=== PATIENT | male | born 1940 | race Caucasian/White ===

== ENCOUNTER 2018-04-17 11:39 | Outpatient (REF) | payer MEDICARE, SELFPAY ==
[2018-04-17 21:20] LABS: Anion Gap 10.1 mmol/L (3-11); BUN 13 mg/dL (7-18); CO2 28.9 mmol/L (21.0-32.0); CREATININE 0.93 mg/dL (0.70-1.30); Calcium 8.5 mg/dL (8.5-10.1); Chloride 101 mmol/L (98-107); Glucose 210 mg/dL (70-100); Potassium 3.9 mmol/L (3.5-5.1); Sodium 140 mmol/L (136-145)
== END 2018-04-17 11:59 ==
LOC: NCHCN 11:39
PROVIDERS: Visit Provider Nurse Practitioner Family
DX: E11.49 Type 2 diabetes mellitus with other diabetic neurological complication (principal); I10 Essential (primary) hypertension
CPT/HCPCS: 80048

== ENCOUNTER 2019-01-15 09:46 | Outpatient (REF) | payer MEDICARE, SELFPAY ==
[2019-01-15 22:45] LABS: COMMENT (LAB VIEW ONLY) 193.97 mg/dL; Microalb ug/mg Crea 31.4 ug/mg Cr
== END 2019-01-15 10:06 ==
LOC: NCHCN 09:46
PROVIDERS: Visit Provider Nurse Practitioner Family
DX: E11.49 Type 2 diabetes mellitus with other diabetic neurological complication (principal); E11.40 Type 2 diabetes mellitus with diabetic neuropathy, unspecified; I10 Essential (primary) hypertension; R06.00 Dyspnea, unspecified
CPT/HCPCS: 82043; 82570

== ENCOUNTER 2019-03-19 15:35 | Outpatient (REF) | payer MEDICARE, SELFPAY ==
[2019-03-19 22:34] LABS: Abs Immature Grans 0.03 k/cumm (0.0-0.09); Absolute Basophil Count 0.01 k/cumm (0.0-0.2); Absolute Eosinophil Count 0.07 k/cumm (0.0-0.7); Absolute Lymphocyte Count 1.38 k/cumm (1.2-3.4); Absolute Monocyte Count 0.89 k/cumm (0.11-0.7); Absolute Neutrophil Count 2.44 k/cumm (1.2-6.7); Basophils % 0.2; Eosinophils % 1.5; HCT 39.2 % (40.0-50.0); HGB 12.7 g/dL (13.5-17.5); Immature Grans % 0.6 %; Lymphocytes % 28.6; Mean Corp. HGB Concentration 32.4 g/dL (32.0-36.0); Mean Corpuscular Hemoglobin 27.3 pg (27.0-33.0); Mean Corpuscular Volume 84.3 fL (80-95); Mean Platelet Volume 9.9 fL (8.0-11.0); Monocytes % 18.5; Neutrophils % 50.6; Platelet Count 204 x1000/uL (130-400); RBC 4.65 m/cumm (4.50-6.00); RBC Distribution Width 15.1 % (11.8-14.1); White Blood Cell Count 4.82 k/cumm (4.4-10.8)
[2019-03-19 22:40] LABS: Iron 54 ug/dL (65-175); Total Iron Binding Capacity 291 ug/dL (250-450); Transferrin Sat 19 % (20-55)
[2019-03-19 23:08] LABS: Ferritin 26 ng/mL (26-388); Folate 17.3 ng/mL (8.6-20.0); TSH (W/Ref FT4) 2.39 uIU/mL (0.36-3.74); Vitamin B12 110 pg/mL (193-986)
== END 2019-03-19 15:55 ==
LOC: NCHCN 15:35
PROVIDERS: Visit Provider Family Medicine
DX: E11.40 Type 2 diabetes mellitus with diabetic neuropathy, unspecified (principal); D50.9 Iron deficiency anemia, unspecified; I10 Essential (primary) hypertension; R13.10 Dysphagia, unspecified
CPT/HCPCS: 82607; 82728; 82746; 83540; 83550; 84443; 85025

== ENCOUNTER 2019-04-08 08:47 | Outpatient (REF) | payer MEDICARE, SELFPAY ==
[2019-04-08 22:05] LABS: BUN 13 mg/dL (7-18); CREATININE 0.86 mg/dL (0.70-1.30); Calcium 8.4 mg/dL (8.5-10.1); Chloride 103 mmol/L (98-107); Glucose 251 mg/dL (74-106); Potassium 4.3 mmol/L (3.5-5.1); Sodium 142 mmol/L (136-145)
[2019-04-08 22:10] LABS: Hemoglobin A1C 7.6 % (3.8-5.6)
== END 2019-04-08 09:07 ==
LOC: NCHCN 08:47
PROVIDERS: Visit Provider Nurse Practitioner Family
DX: E11.49 Type 2 diabetes mellitus with other diabetic neurological complication (principal); I10 Essential (primary) hypertension; D50.9 Iron deficiency anemia, unspecified
CPT/HCPCS: 80048; 83036

== ENCOUNTER 2019-07-21 08:34 | Outpatient (REF) | payer MEDICARE, SELFPAY ==
[2019-07-21 21:43] LABS: Iron 88 ug/dL (65-175)
[2019-07-21 21:57] LABS: HGB 13.3 g/dL (13.5-17.5); Mean Corp. HGB Concentration 32.4 g/dL (32.0-36.0); Mean Corpuscular Hemoglobin 27.1 pg (27.0-33.0); Mean Corpuscular Volume 83.5 fL (80-95); Mean Platelet Volume 10.2 fL (8.0-11.0); Platelet Count 213 x1000/uL (130-400); RBC 4.91 m/cumm (4.50-6.00); RBC Distribution Width 15.3 % (11.8-14.1); White Blood Cell Count 5.42 k/cumm (4.4-10.8)
[2019-07-21 22:09] LABS: Ferritin 48 ng/mL (26-388); Vitamin B12 142 pg/mL (193-986)
== END 2019-07-21 08:54 ==
LOC: NCHCN 08:34
PROVIDERS: Visit Provider Nurse Practitioner Family
DX: D64.9 Anemia, unspecified (principal)
CPT/HCPCS: 85027; 82607; 82728; 83540

== ENCOUNTER 2020-05-03 12:59 | Outpatient (REF) | payer MEDICARE, SELFPAY ==
[2020-05-03 13:19] LABS: HCT 40.9 % (40.0-50.0); HGB 12.9 g/dL (13.5-17.5); MCH 26.8 pg (27.0-33.0); MCHC 31.5 % (32.0-36.0); MCV 84.9 fL (80-95); MPV 10.1 fL (8.0-11.0); Platelet Count 175 10^3/uL (130-400); RBC 4.82 10^6/uL (4.36-5.78); RDW 14.5 % (11.8-14.1); RDW-SD 44.7 fL; WBC 4.54 10^3/uL (4.4-10.8)
[2020-05-03 13:46] LABS: Iron 64 ug/dL (65-175); Total Iron Binding Capacity 275 ug/dL (250-450); Transferrin Sat 23 % (20-55)
[2020-05-03 13:58] LABS: Anion Gap 9.9 mmol/L (3-11); BUN 15 mg/dL (7-18); CO2 28.1 mmol/L (21.0-32.0); Calcium 9.1 mg/dL (8.5-10.1); Chloride 104 mmol/L (98-107); Ferritin 44 ng/mL (26-388); Glucose 208 mg/dL (74-106); Potassium 4.7 mmol/L (3.5-5.1); Sodium 142 mmol/L (136-145); Vitamin B12 757 pg/mL (193-986)
== END 2020-05-03 13:00 | disposition home or self-care (01) ==
LOC: NCHCN 12:59
PROVIDERS: Visit Provider Nurse Practitioner Family
DX: E11.49 Type 2 diabetes mellitus with other diabetic neurological complication (principal); I10 Essential (primary) hypertension; Z86.2 Personal history of diseases of the blood and blood-forming organs and certain disorders involving the immune mechanism
CPT/HCPCS: 80048; 85027; 82043; 82570; 82607; 82728; 83540; 83550

== ENCOUNTER 2020-11-07 11:09 | Outpatient (REF) | payer MEDICARE, SELFPAY ==
[2020-11-07 15:44] LABS: HGB 11.8 g/dL (13.5-17.5); MCH 25.8 pg (27.0-33.0); MCHC 31.1 % (32.0-36.0); MPV 9.8 fL (8.0-11.0); Platelet Count 188 10^3/uL (130-400); RBC 4.58 10^6/uL (4.36-5.78); RDW 14.9 % (11.8-14.1); RDW-SD 45.1 fL; WBC 4.25 10^3/uL (4.4-10.8)
[2020-11-07 16:06] LABS: Iron 75 ug/dL (65-175); Total Iron Binding Capacity 253 ug/dL (250-450); Transferrin Sat 30 % (20-55)
[2020-11-07 16:18] LABS: Anion Gap 12.4 mmol/L (3-11); BUN 13 mg/dL (7-18); CO2 25.6 mmol/L (21.0-32.0); CREATININE 0.8 mg/dL (0.70-1.30); Calcium 8.7 mg/dL (8.5-10.1); Chloride 105 mmol/L (98-107); Ferritin 68 ng/mL (26-388); Glucose 150 mg/dL (74-106); Potassium 4.5 mmol/L (3.5-5.1); Sodium 143 mmol/L (136-145)
[2020-11-07 16:47] LABS: PROTEIN 22.1 mg/dL
[2020-11-07 16:50] LABS: COMMENT (LAB VIEW ONLY) 204.68 mg/dL
[2020-11-07 18:31] LABS: Folate 19.1 ng/mL (8.6-20.0); Vitamin B12 804 pg/mL (193-986)
== END 2020-11-07 11:10 | disposition home or self-care (01) ==
LOC: NCHCN 11:09
PROVIDERS: Visit Provider Nurse Practitioner Family
DX: Z86.2 Personal history of diseases of the blood and blood-forming organs and certain disorders involving the immune mechanism (principal); I10 Essential (primary) hypertension; E11.49 Type 2 diabetes mellitus with other diabetic neurological complication; Z12.5 Encounter for screening for malignant neoplasm of prostate
CPT/HCPCS: 80048; 84153; 85027; 82565; 82607; 82728; 82746; 83540; 83550; 84156

== ENCOUNTER 2020-12-22 16:14 | Outpatient (REF) | payer MEDICARE, SELFPAY ==
[2020-12-22 15:12] LABS: ALT 24 U/L (16-63); AST 23 U/L (15-37); Albumin 3.7 g/dL (3.4-5.0); Alkaline Phosphatase 64 U/L (46-116); BUN 15 mg/dL (7-18); Bilirubin, Total 0.4 mg/dL (0.2-1.0); CREATININE 0.9 mg/dL (0.70-1.30); Chloride 104 mmol/L (98-107); Glucose 137 mg/dL (74-106); Potassium 4.3 mmol/L (3.5-5.1); Sodium 142 mmol/L (136-145); Total Protein 6.4 g/dL (6.4-8.2)
[2020-12-22 15:13] LABS: Abs Immature Grans 0.05 10^3/uL (0.0-0.06); Absolute Basophil Count 0.01 10^3/uL (0.0-0.2); Absolute Eosinophil Count 0.04 10^3/uL (0.0-0.7); Absolute Lymphocyte Count 1.57 10^3/uL (1.2-3.4); Absolute Monocyte Count 0.91 10^3/uL (0.1-0.8); Absolute Neutrophil Count 2.47 10^3/uL (1.2-6.7); Basophils % 0.2; Eosinophils % 0.8; HCT 37.9 % (40.0-50.0); HGB 11.9 g/dL (13.5-17.5); Lymphocytes % 31.1; MCH 26.3 pg (27.0-33.0); MCHC 31.4 % (32.0-36.0); MCV 83.8 fL (80-95); MPV 9.6 fL (8.0-11.0); Neutrophils % 48.9; Nucleated RBC 0 %; Platelet Count 185 10^3/uL (130-400); RBC 4.52 10^6/uL (4.36-5.78); RDW 15.4 % (11.8-14.1); Reticulocyte 1.8 % (0.5-2.4); WBC 5.05 10^3/uL (4.4-10.8)
== END 2020-12-22 16:15 | disposition home or self-care (01) ==
LOC: NCHCN 16:14
PROVIDERS: Visit Provider Nurse Practitioner Family
DX: D64.9 Anemia, unspecified (principal); D72.829 Elevated white blood cell count, unspecified
CPT/HCPCS: 80053; 85025; 85045

== ENCOUNTER 2021-03-29 12:44 | Outpatient (REF) | payer MEDICARE, SELFPAY ==
[2021-03-29 15:37] LABS: Absolute Basophil Count 0.01 10^3/uL (0.0-0.2); Absolute Eosinophil Count 0.04 10^3/uL (0.0-0.7); Absolute Lymphocyte Count 1.92 10^3/uL (1.2-3.4); Absolute Monocyte Count 1.06 10^3/uL (0.1-0.8); Basophils % 0.2; Eosinophils % 0.6; HCT 41.1 % (40.0-50.0); HGB 12.9 g/dL (13.5-17.5); Immature Grans % 1.6; Lymphocytes % 29.9; MCH 26.6 pg (27.0-33.0); MCHC 31.4 % (32.0-36.0); MCV 84.7 fL (80-95); MPV 9.8 fL (8.0-11.0); Monocytes % 16.5; Neutrophils % 51.2; Nucleated RBC 0 %; Platelet Count 180 10^3/uL (130-400); RBC 4.85 10^6/uL (4.36-5.78); RDW-SD 45.6 fL; WBC 6.43 10^3/uL (4.4-10.8)
== END 2021-03-29 12:45 | disposition home or self-care (01) ==
LOC: NCHCN 12:44
PROVIDERS: Visit Provider Nurse Practitioner Family
DX: D64.9 Anemia, unspecified (principal)
CPT/HCPCS: 85025

== ENCOUNTER 2021-08-15 09:10 | Outpatient (REF) | payer MEDICARE, SELFPAY ==
[2021-08-15 14:21] LABS: HCT 39.7 % (40.0-50.0); HGB 12.9 g/dL (13.5-17.5); MCH 27.1 pg (27.0-33.0); MCHC 32.5 % (32.0-36.0); MCV 83 fL (80-95); MPV 10.3 fL (8.0-11.0); Platelet Count 160 10^3/uL (130-400); RBC 4.76 10^6/uL (4.36-5.78); RDW 14.6 % (11.8-14.1); RDW-SD 44.7 fL; WBC 5.22 10^3/uL (4.4-10.8)
[2021-08-15 14:37] LABS: Anion Gap 11.7 mmol/L (3-11); BUN 13 mg/dL (7-18); CO2 25.3 mmol/L (21.0-32.0); CREATININE 0.8 mg/dL (0.70-1.30); Calcium 8.5 mg/dL (8.5-10.1); Chloride 103 mmol/L (98-107); Glucose 241 mg/dL (74-106); Potassium 4.6 mmol/L (3.5-5.1); Sodium 140 mmol/L (136-145)
[2021-08-15 14:59] LABS: Hemoglobin A1C 7.9 % (<5.7)
[2021-08-15 15:54] LABS: COMMENT (LAB VIEW ONLY) 130.44 mg/dL; Microalb ug/mg Crea 26.8 ug/mg Cr
== END 2021-08-15 09:11 | disposition home or self-care (01) ==
LOC: NCHCN 09:10
PROVIDERS: Visit Provider Nurse Practitioner Family
DX: E11.49 Type 2 diabetes mellitus with other diabetic neurological complication (principal); I10 Essential (primary) hypertension; D64.9 Anemia, unspecified
CPT/HCPCS: 80048; 85027; 82043; 82570; 83036

== ENCOUNTER 2022-08-21 11:11 | Outpatient (REF) | payer MEDICARE, SELFPAY ==
[2022-08-21 14:59] LABS: HCT 39.7 % (40.0-50.0); HGB 12.4 g/dL (13.5-17.5); MCH 26.4 pg (27.0-33.0); MCHC 31.2 % (32.0-36.0); MCV 85 fL (80-95); MPV 9.6 fL (8.0-11.0); Platelet Count 185 10^3/uL (130-400); RDW 15.4 % (11.8-14.1); RDW-SD 47.2 fL; WBC 6.08 10^3/uL (4.4-10.8)
[2022-08-21 15:20] LABS: BUN 16 mg/dL (7-18); CREATININE 1.1 mg/dL (0.70-1.30); Calcium 8.8 mg/dL (8.5-10.1); Chloride 105 mmol/L (98-107); Estimated GFR 67.44 (mL/min/1.73m2); Glucose 194 mg/dL (74-106); Potassium 4.7 mmol/L (3.5-5.1); Sodium 139 mmol/L (136-145); TSH 3.56 uIU/mL (0.36-3.74)
[2022-08-21 15:21] LABS: Hemoglobin A1C 7.1 % (<5.7)
== END 2022-08-21 11:12 | disposition home or self-care (01) ==
LOC: NCHCN 11:11
PROVIDERS: Visit Provider Nurse Practitioner Family
DX: R63.4 Abnormal weight loss (principal); D64.9 Anemia, unspecified; I10 Essential (primary) hypertension; E11.49 Type 2 diabetes mellitus with other diabetic neurological complication
CPT/HCPCS: 80048; 85027; 83036; 84443

== ENCOUNTER 2022-08-28 13:28 | Outpatient (REF) | payer MEDICARE, SELFPAY ==
[2022-08-28 15:58] LABS: COMMENT (LAB VIEW ONLY) 100.74 mg/dL; Microalb ug/mg Crea 129.9 ug/mg Cr
== END 2022-08-28 13:29 | disposition home or self-care (01) ==
LOC: NCHCN 13:28
PROVIDERS: PCP Nurse Practitioner Family; Visit Provider Nurse Practitioner Family
DX: D64.9 Anemia, unspecified (principal); I10 Essential (primary) hypertension; E11.49 Type 2 diabetes mellitus with other diabetic neurological complication
CPT/HCPCS: 82043; 82570

== ENCOUNTER 2023-07-16 10:01 | Outpatient (REF) | payer MEDICARE, SELFPAY ==
[2023-07-16 14:48] LABS: HCT 41.4 % (40.0-50.0); HGB 12.8 g/dL (13.5-17.5); MCH 25.5 pg (27.0-33.0); MCHC 30.9 % (32.0-36.0); MCV 83 fL (80-95); MPV 9.8 fL (8.0-11.0); Platelet Count 246 10^3/uL (130-400); RBC 5.02 10^6/uL (4.36-5.78); RDW-SD 48.2 fL; WBC 6.61 10^3/uL (4.4-10.8)
[2023-07-16 15:04] LABS: Anion Gap 6.2 mmol/L (3-11); BUN 17 mg/dL (7-18); CO2 30.8 mmol/L (21.0-32.0); CREATININE 0.9 mg/dL (0.70-1.30); Calcium 9.5 mg/dL (8.5-10.1); Chloride 106 mmol/L (98-107); Estimated GFR 85.27 (mL/min/1.73m2); Glucose 167 mg/dL (74-106); Sodium 143 mmol/L (136-145)
[2023-07-16 15:23] LABS: Hemoglobin A1C 7.2 % (<5.7)
[2023-07-16 16:28] LABS: COMMENT (LAB VIEW ONLY) 77.82 mg/dL; Microalb ug/mg Crea 19.4 ug/mg Cr
[2023-07-17 14:07] LABS: PSA, Diagnostic 2.5 ng/mL (<=6.5)
== END 2023-07-16 10:02 | disposition home or self-care (01) ==
LOC: NCHCN 10:01
PROVIDERS: PCP Nurse Practitioner Family; Visit Provider Nurse Practitioner Family
DX: E11.9 Type 2 diabetes mellitus without complications (principal); N40.0 Benign prostatic hyperplasia without lower urinary tract symptoms; D64.9 Anemia, unspecified
CPT/HCPCS: 80048; 85027; 82043; 82570; 83036; 84153

== ENCOUNTER 2024-01-09 10:18 | Outpatient (REF) | payer MEDICARE, SELFPAY ==
[2024-01-09 15:40] LABS: Absolute Basophil Count 0.01 10^3/uL (0.0-0.2); Basophils % 0.2 %; HCT 39.4 % (40.0-50.0); HGB 11.9 g/dL (13.5-17.5); MCH 23.3 pg (27.0-33.0); MCHC 30.2 % (32.0-36.0); MCV 77 fL (80-95); MPV 9.4 fL (8.0-11.0); Platelet Count 259 10^3/uL (130-400); RBC 5.11 10^6/uL (4.36-5.78); RDW 19.9 % (11.8-14.1); RDW-SD 55.5 fL; WBC 6.32 10^3/uL (4.4-10.8)
[2024-01-09 15:50] LABS: ALT 12 U/L (16-63); AST 21 U/L (15-37); Albumin 3.1 g/dL (3.4-5.0); Alkaline Phosphatase 70 U/L (46-116); BUN 11 mg/dL (7-18); Bilirubin, Total 0.53 mg/dL (0.2-1.0); CREATININE 0.8 mg/dL (0.70-1.30); Calcium 9.2 mg/dL (8.5-10.1); Chloride 105 mmol/L (98-107); Estimated GFR 88.36 (mL/min/1.73m2); Glucose 152 mg/dL (74-106); Potassium 4.2 mmol/L (3.5-5.1); Sodium 143 mmol/L (136-145); Total Protein 7.4 g/dL (6.4-8.2)
[2024-01-09 16:26] LABS: Absolute Lymphocyte Count 1.64 10^3/uL (1.2-3.4); Absolute Monocyte Count 1.33 10^3/uL (0.1-0.8); Absolute Neutrophil Count 3.16 10^3/uL (1.2-6.7); Diff Comment Manual Differential
[2024-01-09 16:27] LABS: Absolute Eosinophil Count 0.06 10^3/uL (0.0-0.7); Anisocytosis 1+; Metamyelocytes % 2
[2024-01-09 16:28] LABS: Hypochromasia 1+; Poikilocytes 1+; Polychromasia Present
[2024-01-09 22:30] LABS: PSA, Screening 2.6 ng/mL (<=6.5)
== END 2024-01-09 10:19 | disposition home or self-care (01) ==
LOC: NCHCN 10:18
PROVIDERS: PCP Nurse Practitioner Family; Visit Provider Nurse Practitioner Family
DX: R63.4 Abnormal weight loss (principal)
CPT/HCPCS: 80053; 84153; 84443; 85025

== ENCOUNTER 2024-01-17 13:50 | Outpatient (REF) | payer MEDICARE, SELFPAY ==
--- OUTSIDE RECORDS SUMMARY | 2024-01-17 13:52 | XMS_ITS ---
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 The components appear well seated. No other significant bony abnormality is seen. Dictated by: SYBIL GONZALES RADIOLOGIST Transcribed by: EMERSON 06/09/21/10:40 D Wednesday, June 09, 2021 9:56:00 AM [id number] Electronically Reviewed and Signed By: JEAN-PAUL GONZALES RADIOLOGIST 06/09/21 12:23 Copy for: [facility] Social History Type Status Start Date End Date Code Code Syst em Smoking History Former smoker [id number] SNOMED CT Sex Male Hospital Discharge Instructions Should you have any questions prior to discharge, please contact a member of your healthcare team. If you have left the hospital and have any questions, please contact your primary care physician. Reason For Referral No Data Found Allergies and Adverse Reactions Allergy Substance Reaction Severity Start Date Concern Status Co de Code System AMOXICILLIN Moderate Active 723 RxNorm Plan of Treatment Pre-Op Covid-19 Testing 05/30/2020 Pre-Op Testing 05/09/2020 CT CHEST W/O CONTRAST 02/03/2024 PFT COMPLETE W [facility] 01/21/2024 Encounters Encounter Diagnosis Start Date Code Code Sys tem Shoulder joint prosthesis present 06/09/2021 [id number] SNOMED-CT Personal Care Team Section Performer Name Performer Role Active Date Inactive Da te
--- OUTSIDE RECORDS SUMMARY | 2024-01-17 13:52 | XMS_ITS ---
Author Organization Unknown Address [address] [place] [address] [phone] Phone Care Team Providers Care Detective Private Eye Name Role Phone KEYON Gutierrez Attending Unavailable MICHELLE Acosta Primary Unavailable Results XR SHOULDER 2V OR MORE LT* - Completed: 06/04/2022 11:05 LOINC: [facility] [place], [place] [address] PACS SPORTS CARTOONIST REPORT Patient Name: MEGGAN JOSHI MRN: Sex: : Age: [id number] M 1940 82 Account: Accession: Admit: StayType: [id number] 06/04/2022 CLINIC Ordered: Order ID: Submitted: Ordering Provider: 06/04/2022 10:26 [id number] EMO ASHLEY TA Completed: Technologist: Resulted: 06/04/2022 11:05 EMO 06/04/2022 11:07 Study Description: XR SHOULDER 2V OR MORE LT Study Reason: Pain Technique: 2D digital imaging was performed. 2 images were obtained. COMPARISON: Comparison is made with prior examinations. 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 No lucencies are seen and are about the orthopedic hardware. The bones are intact. Mild degenerative changes are seen at the acromioclavicular joint. The soft tissues are unremarkable. IMPRESSION: Stable left TSA. Report Digitally Signed by Jorge Mcnair on 06/04/2022 11:07 AM EDT Social History Type Status Start Date End Date Code Code Syst em Smoking History Former smoker [id number] SNOMED CT Sex Male Hospital Discharge Instructions [...] Diagnosis Start Date Code Code Sys tem Postprocedural state finding 06/04/2022 [id number] SNOMED-CT Personal Care Team Section Performer Name Performer Role Active Date Inactive Da te
--- OUTSIDE RECORDS SUMMARY | 2024-01-17 13:52 | XMS_ITS ---
Author Organization Unknown Address [address] [place] [address] [phone] Phone Care Team Providers Care Core Shaper Top Name Role Phone MIKE Gomez Attending Unavailable MICHELLE Acosta Primary Unavailable Results XR CHEST 2V PA AND LATERAL - Completed: 10/02/2022 14:24 LOINC: [facility] [place], [place] [address] PACS COTTAGE ATTENDANT REPORT Patient Name: MEGGAN JOSHI MRN: Sex: : Age: [id number] M 1940 82 Account: Accession: Admit: StayType: [id number] 10/02/2022 O/P Ordered: Order ID: Submitted: Ordering Provider: 10/02/2022 14:14 [id number] NLS EFRA MCKEON Completed: Technologist: Resulted: 10/02/2022 14:24 KMD 10/03/2022 07:31 Study Description: XR CHEST 2V PA AND LATERAL Study Reason: Cough TECHNIQUE: 2D digital imaging was performed. PA and Lateral views COMPARISON: Chest x-ray 02/10/2019. FINDINGS: Heart size is normal. The mediastinum is not widened. Lungs are clear. There are no infiltrates nor pleural effusions. Left shoulder reverse prosthesis now evident. IMPRESSION: No acute pulmonary findings. Report Digitally Signed by Rylan Mercer on 10/03/2022 07:31 AM EDT Social History Type Status Start Date End Date Code Code Syst em Smoking History Former smoker [id number] SNOMED CT Sex Male Hospital Discharge Instructions [...] CHEST W/O CONTRAST 02/03/2024 PFT COMPLETE W RIA 01/21/2024 Encounters Encounter Diagnosis Start Date Code Code Sys tem Other specified cough 10/02/2022 SNOMED -CT Personal Care Team Section Performer Name Performer Role Active Date Inactive Da te
--- OUTSIDE RECORDS SUMMARY | 2024-01-17 13:53 | XMS_ITS ---
Author Organization Unknown Address [address] [place] [address] [phone] Phone Care Team Providers Care Casting Cleaner Name Role Phone MICHELLE WEI Attending Unavailable Social History Type Status Start Date End Date Code Code Syst em Smoking History Former smoker [id number] SNOMED CT Sex Male Hospital Discharge Instructions [...] CHEST W/O CONTRAST 02/03[facility]2024 [facility] Encounters Encounter Diagnosis Start Date Code Code Sys tem Other abnormalities of gait and mobility 10/21/2020 SNOMED-CT Personal Care Team Section Performer Name Performer Role Active Date Inactive Da te
--- OUTSIDE RECORDS SUMMARY | 2024-01-17 13:53 | XMS_ITS ---
Author Organization Unknown Address [address] [place] [address] [phone] Phone Care Team Providers Care Watch And Clock Maker And Repairer Name Role Phone MILTON CARCAMO NP Attending [facility]available [facility] Primary Unavailable Social History Type Status Start Date End Date Code Code Syst em Smoking History Former smoker 0588464 SNOMED CT Sex Male Hospital Discharge Instructions [...] Code Sys tem Shoulder joint prosthesis present 09/30/2020 [id number] 01 SNOMED-CT Personal Care Team Section Performer Name Performer Role Active Date Inactive Da roxi
--- OUTSIDE RECORDS SUMMARY | 2024-01-17 13:54 | XMS_ITS | Encounter Summary ---
Author Organization [facility] Address [address] [place] [address] Care Team Providers Care Departmental Shipping Clerk Name Role Phone Darwin Cary Dave MICROFILM PROCESSOR Primary Care Provider [phone] Reason for Visit * Reason Comments Medications Refill Encounter Details Date Type Department Care Team (Late st Contact Info) Description 12/31/2021 Refill [facility] Ophthalmology - [address] [phone] Caleb Cabello MD [address] [facility], [address] [place] [phone] Medications Refill Social History Tobacco Use Types Packs/Day Years Used Date Smoking Tobacco: Former Smokeless Tobacco: Current Chew Interpersonal Safety Answer Date Record ed Physically Hurt Never 10/11/2019 Verbally Threaten Not on file 10/11/2019 Sex and Gender Information Value Date Recorded Sex Assigned at Not on file Gender Identity Male 05/20/2019 12:48 EDT Sexual Orientation Not on file documented as of this encounter Ordered Prescriptions Prescription Sig Dispensed Refills Start Date End Da te travoprost (TRAVATAN Z) 0.004 % ophthalmic solution INSTILL 1 DROP INTO BOTH EYES IN THE EVENING 2.5 mL 01/02/2022 01/05/2022 documented in this encounter Plan of Treatment Not on file documented as of this encounter Visit Diagnoses Not on filedocumented in this encounter Discontinued Medications Medication Sig Discontinue Reason Start Date End Da te travoprost (TRAVATAN Z) 0.004 % ophthalmic solution Place 1 Drop into both eyes every evening. Needs to keep apt for further refills. 10/30/2021 01/02/2022 documented as of this encounter Care Teams Departmental Shipping Clerk Relationship Specialty Start Date End Date Cary Granados, MICROFILM PROCESSOR [address] [place] [address] PCP - General 05/21/17 documented as of this encounter
--- OUTSIDE RECORDS SUMMARY | 2024-01-17 13:54 | XMS_ITS | Encounter Summary ---
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 [H25.813] Procedures MS XCAPSL CTRC RMVL INSJ IO LENS PROSTH W/O ECP MS RELIEVE INNER EYE PRESSURE EXTRACAP CATARACT REMOVAL W/LENS INSERTION STAGE 1 GONIOTOMY Referral ID Status Reason Start Date Expiration Date Visits Re quested Visits Authorized [id number] 1 1 Encounter Details Date Type Department Care Team (Late st Contact Info) Description 08/11/2019 11:15 EDT - 08/11/2019 12:20 EDT Surgery [facility] - [facility] Operating Room [address] [place] [address] Caleb Cabello MD [address] [facility], [facility] [address] [place] [address] Cataract Extraction w/IOL Implant, Goniotomy, RIGHT EYE [02167 (CPT??)] Surgery Details Date/Time Status Location OR Service Patient Class Case Class Case Type Trauma Case? 08/11/19 1115 Posted [facility] OR FOR 04 [facility] Outpatient Surgery H - Elective Panel 1 Procedure LRB Anes Op Region Wound Class Comments Cataract Extraction w/IOL Implant, Goniotomy, RIGHT EYE Right Monitored Anesthesia Care Eye Class I/ Clean GONIOTOMY Right Monitored Anesthesia Care Eye Class I/ Clean Please reduce this case to its average of 40 minutes [place] [employer] Gonioprism Surgeon Surgeon Role Service Panel Caleb Cabello MD Primary Ophthalmology 1 documented in this encounter Social History Tobacco Use Types Packs/Day Years Used Date Smoking Tobacco: Former Smokeless Tobacco: Current Chew Sex and Gender Information Value Date Recorded Sex Assigned at Not on file Gender Identity Male 05/20/2019 12:48 EDT Sexual Orientation Not on file COVID-19 Exposure Response Date Recorded In the last month, have you been in contact with someone who was confirmed or suspected to have Coronavirus / COVID-19? No / Unsure 08/11/2019 9:10 EDT documented as of this encounter Last Filed Vital Signs Vital Sign Reading Time Taken Comments Blood Pressure 166/91 08/11/2019 1145 EDT Pulse - - Temperature 36.6 ??C (97.9 ??F) 08/11/2019 1145 EDT Respiratory Rate 16 08/11/2019 1145 EDT Oxygen Saturation 98% 08/11/2019 1145 EDT Inhaled Oxygen Concentration - - Weight 89.3 kg (196 lb 13.9 oz) 08/11/2019 0934 EDT Height - - Body Mass Index 27.08 07/24/2019 1358 EDT documented in this encounter Discharge Instructions * Discharge Instructions* Caleb Cabello MD - 08/11/2019 11:59 EDT Post-Operative Cataract Surgery Instructions Caleb Cabello MD Leave the patch and shield on overnight tonight. It will be removed in the office tomorrow. The eyemay be mildly sore; take Tylenol or other ulrt-poa-amtcgdt pain reliever if needed, following the directions on the package. If you have severe pain or nausea, call Dr. Cabello or [facility] ([phone]) and ask to speak to the deputy assessor transaction processor. You do not need any medicine in the surgical eye today or tonight. If you were using medicines in the un-operated eye, continue them without any change. It's normal for the eye to be red or mildly irritated for the next weeks. It's normal for the vision to fluctuate slightly. Avoid rubbing, scratching, or pushing on the eye. Wear the eye shield when sleeping for four nights. Use tape to hold it in place. For four days, avoid strenuous activity, such as lifting objects over 20 pounds, running, swimming,tennis, throwing, and golf. Avoid bending at the waist; bend at your knees if you need to pick something up. You can watch tv, read, and otherwise use your eyes as much as you wish. It's ok to bath, shower, and wash your face and hair, but avoid getting soap in the eye or spraying water directly into the eye. Dry your face gently with a towel, being sure to avoid putting pressure on the eye. documented in this encounter Medications at Time of Discharge Medication Sig Dispensed Refills Start Date End Date cyanocobalamin (VITAMIN B-12) 500 mcg tablet Take 1 Tablet by mouth daily. famotidine (PEPCID) 20 mg tablet Take 1 Tablet by mouth 2 times daily. ferrous gluconate (FERGON) 324 mg (38 mg iron) tablet Take 1 Tablet by mouth 2 times daily with breakfast and dinner. gabapentin (NEURONTIN) 300 mg capsule Take 1 Capsule by mouth 3 times daily. INSULIN DETEMIR (LEVEMIR FLEXPEN SUBQ) Inject 30 Units into the skin daily. lisinopril (PRINIVIL, ZESTRIL) 10 mg tablet Take 1 Tablet by mouth daily. metFORMIN (GLUCOPHAGE) 500 mg tablet Take 2 Tablets by mouth 2 times daily with breakfast and dinner. NAPROXEN SODIUM (ALEVE ORAL) Take 1 Tab by mouth daily. simvastatin (ZOCOR) 20 mg tablet Take 1 Tablet by mouth daily. SITagliptin (JANUVIA) 50 mg tablet Take 50 mg by mouth daily. tamsulosin (FLOMAX) 0.4 mg capsule Take 1 Capsule by mouth daily. vit A/vit C/vit E/zinc/copper (PRESERVISION AREDS ORAL) Take by mouth. brimonidine (ALPHAGAN) 0.2 % ophthalmic solution Place 1 Drop into both eyes 2 times daily. 30 mL 3 08/05/2019 08/15/2020 ketOROLAC (ACULAR) 0.5 % ophthalmic solution 1 Drop to Right Eye. 4 x daily beginning 4 days BEFORE surgery. Dispense 1 bottle. No refill. 1 Bottle 08/05/2019 08/18/2019 loteprednol etabonate (LOTEMAX) 0.5 % ophthalmic suspension 1 Drop to Right Eye. 4 x Daily beginning AFTER Surgery. Shake well each time. Dispense 5 ml bottle. No refill. 5 mL 08/05/2019 08/12/2019 loteprednol etabonate (LOTEMAX) 0.5 % ophthalmic suspension 1 Drop to Left Eye. 4 x Daily beginning AFTER Surgery. Shake well each time. Dispense 5 ml bottle. No refill. 5 mL 03/23/2019 08/12/2019 ofloxacin (OCUFLOX) 0.3 % ophthalmic solution 1 Drop to Right Eye. 4 x daily beginning 4 days BEFORE surgery. Dispense 1 bottle. No refill. 1 Bottle 08/05/2019 08/18/2019 timolol (TIMOPTIC) 0.5 % ophthalmic solution Place 1 Drop into both eyes 2 times daily. 30 mL 3 03/23/2019 05/02/2020 travoprost (TRAVATAN Z) 0.004 % ophthalmic solution Place 1 Drop into both eyes every evening. 12.5 mL 3 06/09/2019 06/16/2020 documented as of this encounter Discharge Disposition Disposition Code Departure Means Destination Home or Self Correction documented in this encounter H&P Notes * Caleb Cabello MD - 08/11/201965 EDT The preoperative history and physical which was performed within 30 days of this procedure has been reviewed and the clinically appropriate elements of the physical examination have been repeated. There are no changes to the documented history and physical or if so such changes are documented below Caleb Cabello MD 08/11/2019 9:48 Source Note - MURAL ARTIST, SCAN 2 - 08/05/2019 13:59 EDT documented in this encounter OR Notes * OR Surgeon - Caleb Cabello MD - 08/11/201982 EDT Date of Procedure: 08/11/19 Preoperative Dx: Primary open angle glaucoma, severe, and visually significant cataract, right eye Postoperative Dx: Same Procedure: Goniotomy and phacoemulsification with IOL implant, right eye. Surgeon: Tina Cabello MD Anesthesia: Topical with monitored anesthesia care. Complications: None. The patient was met in the pre-operative area, where the patient ID, procedure, and operative site were all confirmed. The operative site was marked. All questions were answered, and the risks and benefits of the surgery were again reviewed, including blurry vision, need for glasses, bleeding, infection, and need for further treatment or surgery. The patient agreed to proceed with surgery. The patient was taken to the OR where a time-out occurred to again verify the patient ID, procedure, and operative site. The eye was prepped and draped in normal sterile fashion. A lid speculum was inserted for proper exposure. A 1.0 mm sideport blade was used to construct a paracentesis at approx the 10:30 position. Approx 0.5 ml of preservative-free lidocaine was injected into the anterior chamber. Viscoat was used to firm and deepen the anterior chamber. A 2.75 mm keratome was used to construct a main corneal wound at approx the 8:30 position. A cystatome needle was used to begin a capsullorhexis, which was completed with the utrata forceps, forming a continuous curvilinear capsullorhexis. BSS was injected through a 30-gauge cannula to hydrodissect the nuclear. A kuglen hook was used to rotate the nucleus. The phacoemulsification probe was used, together with a chopper, and the nucleus was removed using a [id number] technique. The bimanual irrigation and aspiration handpiece was used to remove cortex. The bag was gently inflated with healon; the bag appeared intact. An Jaspal model [id number], power 20.0 was injected and positioned within the bag. The anterior chamber was inflated with Healon, to deepen and firm it. The patient's head was tilted approx 45* away from the surgeon, and the scope was similarly tilted to an angle of approx 45*. Using a gonioprism, the angle was visualized and the [employer] goniotomy blade was used to excise a strip of trabecular meshwork, measuring approx 3 clock hours. The patient's head and the microscope were returned to primary position. The irrigation and aspiration handpieces were used to remove healon from the eye. BSS was injected into the anterior chamber to adjust the eye toward physiologic pressure and also to hydrate the corneal wounds. None of the wounds leaked. The lid speculum was removed. Timolol, vigamox, and maxitrol ointment were applied to the eye; the eye was patched and shielded. The patient was taken to the recovery room in stable condition. documented in this encounter Plan of Treatment Not on file documented as of this encounter Procedures Procedure Name Priority Date/Time Associated Diagnosis Comments IMPLANT RECORD - SCANNED 08/19/2019 11:55 EDT GONIOTOMY 08/11/2019 10:43 EDT Combined forms of age-related cataract of both eyes EXTRACTION, CATARACT, EXTRACAPSULAR, WITH IOL INSERTION 08/11/2019 10:43 EDT Combined forms of age-related cataract of both eyes POCT GLUCOSE, INTERFACED Routine 08/11/2019 9:42 EDT documented in this encounter Results * IMPLANT RECORD - SCANNED (08/19/2019 11:55 EDT) 08/19/2019 11:5 5 EDT Scan 2 Global Marketing Manager PROCEDURE/MINOR MEENA GICAL ORDERABLES * (ABNORMAL) POCT GLUCOSE, INTERFACED (08/11/2019 9:42 EDT) Glucose, POC 163(H) 70 - 100 mg/dL 08/11/2019 9:43 EDT [facility] driver medic ID [id number] 08/11/2019 9:43 EDT [facility] HN LAB POC COMMENT (GLUCOSE) Test Performed by Nursing Services 08/11/2019 9:43 EDT [facility] Blood CAPILLARY BLOOD / Unknown 08/11/2019 9:42 EDT 08/11/2019 9:43 EDT Caleb Cabello MD POINT OF CARE TEST O RDERABLES [facility] [address] [place] [address] documented in this encounter Visit Diagnoses Diagnosis Combined forms of age-related cataract of both eyes- Primary Other and combined forms of senile cataract Combined forms of age-related cataract of both eyes Other and combined forms of senile cataract documented in this encounter Admitting Diagnoses Diagnosis Combined forms of age-related cataract of both eyes Other and combined forms of senile cataract documented in this encounter Administered Medications Inactive Administered Medications - up to 3 most recent administrations Medication Order MAR Action Action Date Dose Rate Site balanced salt solution inrrigation solution (BSS PLUS) 500 mL, EPINEPHrine HCl (PF) (ADRENALIN) 0.5 mL irrigation As needed, Starting on Sat08/11/19 at 1104, Until Sat08/11/19 at 1109, Routine, Intraprocedure Given 08/11/2019 11:04 EDT 500 mL balanced salts (BSS) ophthalmic solution As needed, Starting on Sat08/11/19 at 1104, Until Sat08/11/19 at 1109, Routine, Intraprocedure Given 08/11/2019 11:04 EDT 15 mL chondroitin-sodium hyaluronate (VISCOAT) ophthalmic solution As needed, Starting on Sat08/11/19 at 1105, Until Sat08/11/19 at 1109, Routine, Intraprocedure Given 08/11/2019 11:05 EDT 1 Each cyclopentolate (CYCLOGYL) 2 % ophthalmic solution 1 Drop 1 Drop, right eye, PREOP LINKED EYE MEDS-SEE ADMIN INSTRUCTIONS, 3 doses, First dose on Sat08/11/19 at 1000, Last dose on Sat08/11/19 at 1010, Routine, Preprocedure Given 08/11/2019 9:45 EDT 1 Drop Given 08/11/2019 9:44 EDT 1 Drop Given 08/11/2019 9:43 EDT 1 Drop dextrose 50 % solution 12.5 g 12.5 g, intravenous, PRN, Starting on Sat08/11/19 at 0930, Until Sat08/11/19 at 1421, Low Blood Sugar, Routine, Preprocedure glucagon injection 1 mg 1 mg, intramuscular, PRN, Starting on Sat08/11/19 at 0930, Until Sat08/11/19 at 1421, Low Blood Sugar, Routine, Preprocedure ketOROLAC tromethamine (ACULAR LS) 0.4 % ophthalmic solution 1 Drop 1 Drop, right eye, PREOP LINKED EYE MEDS-SEE ADMIN INSTRUCTIONS, 3 doses, First dose on Sat08/11/19 at 1000, Last dose on Sat08/11/19 at 1010, Routine, Preprocedure Given 08/11/2019 9:43 EDT 1 Drop Given 08/11/2019 9:42 EDT 1 Drop Given 08/11/2019 9:41 EDT 1 Drop lidocaine (PF) 10 mg/mL (1 %) injection As needed, Starting on Sat08/11/19 at 1106, Until Sat08/11/19 at 1109, Routine, Intraprocedure Given 08/11/2019 11:06 EDT 1 mL moxifloxacin (VIGAMOX) 0.5 % ophthalmic solution 1 Drop 1 Drop, right eye, PREOP LINKED EYE MEDS-SEE ADMIN INSTRUCTIONS, 3 doses, First dose on Sat08/11/19 at 1000, Last dose on Sat08/11/19 at 1010, Routine, Preprocedure Given 08/11/2019 9:40 EDT 1 Drop Given 08/11/2019 9:39 EDT 1 Drop Given 08/11/2019 9:38 EDT 1 Drop moxifloxacin (VIGAMOX) 0.5 % ophthalmic solution As needed, Starting on Sat08/11/19 at 1106, Until Sat08/11/19 at 1109, Routine, Intraprocedure Given 08/11/2019 11:06 EDT 1 Drop sqbfptya-duppyjlbc-wyqctoyflvwvp (MAXITROL) ophthalmic ointment As needed, Starting on Sat08/11/19 at 1106, Until Sat08/11/19 at 1109, Intraprocedure Given 08/11/2019 11:06 EDT 1 mL phenylephrine (MYDFRIN) 2.5 % ophthalmic solution 1 Drop 1 Drop, right eye, PREOP LINKED EYE MEDS-SEE ADMIN INSTRUCTIONS, 3 doses, First dose on Sat08/11/19 at 1000, Last dose on Sat08/11/19 at 1010, Routine, Preprocedure Given 08/11/2019 9:51 EDT 1 Drop Given 08/11/2019 9:50 EDT 1 Drop Given 08/11/2019 9:49 EDT 1 Drop proparacaine (ALCAINE) 0.5 % ophthalmic solution 1 Drop 1 Drop, right eye, PREOP LINKED EYE MEDS-SEE ADMIN INSTRUCTIONS, 1 dose, First dose on Sat08/11/19 at 1000, Routine, Preprocedure Given 08/11/2019 9:37 EDT 1 Drop sodium hyaluronate (HEALON) ophthalmic injection As needed, Starting on Tu08/11/19 at 1107, Until Tu08/11/19 at 1109, Routine, Intraprocedure Given 08/11/2019 11:07 EDT 10 mg sodium hyaluronate (HEALON) ophthalmic injection As needed, Starting on Tu08/11/19 at 1121, Until Tu08/11/19 at 1121, Routine, Intraprocedure Given 08/11/2019 11:21 EDT 10 mg timolol (TIMOPTIC) 0.5 % ophthalmic solution As needed, Starting on Sat08/11/19 at 1108, Until Tu08/11/19 at 1109, Routine, Intraprocedure Given 08/11/2019 11:08 EDT 1 Drop tropicamide (MYDRIACYL) 1 % ophthalmic solution 1 Drop 1 Drop, right eye, PREOP LINKED EYE MEDS-SEE ADMIN INSTRUCTIONS, 3 doses, First dose on Sat08/11/19 at 1000, Last dose on Sat08/11/19 at 1010, Routine, Preprocedure Given 08/11/2019 9:48 EDT 1 Drop Given 08/11/2019 9:47 EDT 1 Drop Given 08/11/2019 9:46 EDT 1 Drop documented in this encounter Active and Recently Administered Medications Times are shown in EDT. Scheduled Medication Order 08/09/2019 08/10/2019 08/11/2019 cyclopentolate (CYCLOGYL) 2 % ophthalmic solution 1 Drop (COMPLETED) 1 Drop, right eye, PREOP LINKED EYE MEDS-SEE ADMIN INSTRUCTIONS, 3 doses, First dose on Sat08/11/19 at 1000, Last dose on Sat08/11/19 at 1010, Routine, Preprocedure 0943 (Given - Provid er: Ashley Manzo RN)0944 (Given - Provider: Ashley Manzo RN)0945 (Given - Provider: Ashley Manzo RN) ketOROLAC tromethamine (ACULAR LS) 0.4 % ophthalmic solution 1 Drop (COMPLETED) 1 Drop, right eye, PREOP LINKED EYE MEDS-SEE ADMIN INSTRUCTIONS, 3 doses, First dose on Sat08/11/19 at 1000, Last dose on Sat08/11/19 at 1010, Routine, Preprocedure 0941 (Given - Provid er: Ashley Manzo RN)0942 (Given - Provider: Ashley Manzo RN)0943 (Given - Provider: Ashley Manzo RN) moxifloxacin (VIGAMOX) 0.5 % ophthalmic solution 1 Drop (COMPLETED) 1 Drop, right eye, PREOP LINKED EYE MEDS-SEE ADMIN INSTRUCTIONS, 3 doses, First dose on Sat08/11/19 at 1000, Last dose on Sat08/11/19 at 1010, Routine, Preprocedure 0938 (Given - Provid er: Ashley Manzo RN)0939 (Given - Provider: Ashley Manzo RN)0940 (Given - Provider: Ashley Manzo RN) phenylephrine (MYDFRIN) 2.5 % ophthalmic solution 1 Drop (COMPLETED) 1 Drop, right eye, PREOP LINKED EYE MEDS-SEE ADMIN INSTRUCTIONS, 3 doses, First dose on Sat08/11/19 at 1000, Last dose on Sat08/11/19 at 1010, Routine, Preprocedure 0949 (Given - Provid er: Ashley Manzo RN)0950 (Given - Provider: Ashley Manzo RN)0951 (Given - Provider: Ashley Manzo RN) proparacaine (ALCAINE) 0.5 % ophthalmic solution 1 Drop (COMPLETED) 1 Drop, right eye, PREOP LINKED EYE MEDS-SEE ADMIN INSTRUCTIONS, 1 dose, First dose on Sat08/11/19 at 1000, Routine, Preprocedure 0937 (Given - Provid er: Ashley Manzo RN) tropicamide (MYDRIACYL) 1 % ophthalmic solution 1 Drop (COMPLETED) 1 Drop, right eye, PREOP LINKED EYE MEDS-SEE ADMIN INSTRUCTIONS, 3 doses, First dose on Sat08/11/19 at 1000, Last dose on Sat08/11/19 at 1010, Routine, Preprocedure 0946 (Given - Provid er: Ashley Manzo RN)0947 (Given - Provider: Ashley Manzo RN)0948 (Given - Provider: Ashley Manzo RN) PRN Medication Order 08/09/2019 08/10/2019 08/11/2019 balanced salt solution inrrigation solution (BSS PLUS) 500 mL, EPINEPHrine HCl (PF) (ADRENALIN) 0.5 mL irrigation (CANCELED) As needed, Starting on Tue 620 at 1104, Until Tue 6/20 at 1109, Routine, Intraprocedure 1104 (Given - Provid er: Caleb Cabello MD - Comment: BSS I [id number] BSS II [id number] Epi [id number]) balanced salts (BSS) ophthalmic solution (CANCELED) As needed, Starting on Tue 20 at 1104, Until Tue 6/20 at 1109, Routine, Intraprocedure 1104 (Given - Provid er: Caleb Cabello MD) chondroitin-sodium hyaluronate (VISCOAT) ophthalmic solution (CANCELED) As needed, Starting on Tue 20 at 1105, Until Tue 6//20 at 1109, Routine, Intraprocedure 1105 (Given - Provid er: Caleb Cabello MD - Comment: #[id number]) dextrose 50 % solution 12.5 g 12.5 g, intravenous, PRN, Starting on Tue 20 at 0930, Until Tue 6//20 at 1421, Low Blood Sugar, Routine, Preprocedure glucagon injection 1 mg 1 mg, intramuscular, PRN, Starting on Tue 620 at 0930, Until Tue 6//20 at 1421, Low Blood Sugar, Routine, Preprocedure lidocaine (PF) 10 mg/mL (1 %) injection (CANCELED) As needed, Starting on Tue 620 at 1106, Until Tue 6//20 at 1109, Routine, Intraprocedure 1106 (Given - Provid er: Caleb Cabello MD - Comment: #[id number]) moxifloxacin (VIGAMOX) 0.5 % ophthalmic solution (CANCELED) As needed, Starting on 6/2/20 at 1106, Until 6/2/20 at 1109, Routine, Intraprocedure 1106 (Given - Provid er: Caleb Cabello MD) txhmworc-btokcqibg-lcpufsphxegwz (MAXITROL) ophthalmic ointment (CANCELED) As needed, Starting on 6/2/20 at 1106, Until 6/2/20 at 1109, Intraprocedure 1106 (Given - Provid er: Caleb Cabello MD) sodium hyaluronate (HEALON) ophthalmic injection (CANCELED) As needed, Starting on 6/2/20 at 1107, Until 6/2/20 at 1109, Routine, Intraprocedure 1107 (Given - Provid er: Caleb Cabello MD - Comment: #[id number]) sodium hyaluronate (HEALON) ophthalmic injection (CANCELED) As needed, Starting on 6/2/20 at 1121, Until 6/2/20 at 1121, Routine, Intraprocedure 1121 (Given - Provid er: Caleb Cabello MD - Comment: #[id number]) timolol (TIMOPTIC) 0.5 % ophthalmic solution (CANCELED) As needed, Starting on 6/2/20 at 1108, Until 6/2/20 at 1109, Routine, Intraprocedure 1108 (Given - Provid er: Caleb Cabello MD) documented in this encounter Orders Medications Ordered That Saurav ht Not Have Been Administered Count Last Ordered Date First Ordered Date dextrose 50 % solution 12.5 g 1 08/11/2019 glucagon injection 1 mg 1 08/11/2019 tobramycin (TOBREX) 0.3 % op hthalmic ointment 1 08/11/2019 Transfer Count Last Ordered Date First Orde red Date NON-TEACHING SERVICE 1 08/11/2019 Discharge Count Last Ordered Date First Orde red Date DISCHARGE PATIENT 1 08/11/2019 documented in this encounter Care Teams Scrubber System Attendant Relationship Specialty Start Date End Date Cary Granados, BENCH WORKER APPRENTICE [address] [place] [address] PCP - General 05/21/17 documented as of this encounter
--- OUTSIDE RECORDS SUMMARY | 2024-01-17 13:54 | XMS_ITS | Encounter Summary ---
Author Organization [facility] Address [address] [place] [address] Care Team Providers Care Warehouse Supervisor 3Rd Shift Name Role Phone Cary Granados TAPE RECORDER REPAIRER Primary Care Provider [phone] Reason for Visit * Reason Comments Medications Refill Encounter Details Date Type Department Care Team (Late st Contact Info) Description 03/29/2022 Refill [facility] Ophthalmology - [address] [phone] Caleb Cabello MD [address] [facility], [address] [place] [address] Medications Refill Social History Tobacco Use Types [...] Dispensed Refills Start Date End Da te brimonidine (ALPHAGAN) 0.2 % ophthalmic solution INSTILL 1 DROP INTO BOTH EYES TWICE DAILY 30 mL 3 03/29/2022 05/13/2023 documented in this encounter Plan of Treatment Not on file documented as of this encounter Visit Diagnoses Not on filedocumented in this encounter Discontinued Medications Medication Sig Discontinue Reason Start Date End Da te brimonidine (ALPHAGAN) 0.2 % ophthalmic solution INSTILL 1 DROP INTO BOTH EYES TWICE DAILY 08/15/2020 03/29/2022 documented as of this encounter Care Teams Warehouse Supervisor 3Rd Shift Relationship Specialty Start Date End Date Cary Granados, TAPE RECORDER REPAIRER [address] [facility] [place] [address] PCP - General 05/21/17 documented as of this encounter
--- OUTSIDE RECORDS SUMMARY | 2024-01-17 13:54 | XMS_ITS | Encounter Summary ---
Author Organization [facility] Address [address] [place] [address] Care Team Providers Care Child Caregiver Name Role Phone Darwin Cary Dave PILE DRIVING SUPERVISOR Primary Care Provider [phone] Reason for Visit * Auth/Cert Specialty Diagnoses / Procedures Referred By Romina t Referred To Contact Diagnoses Combined forms of age-related cataract of left eye Combined forms of age-related cataract of left eye [H25.812] Procedures WY XCAPSL CTRC RMVL INSJ IO LENS PROSTH W/O ECP WY RELIEVE INNER EYE PRESSURE Cataract Extraction w/Intraocular Lens Implant, Left Eye Goinotomy, Left Eye Referral ID Status Reason Start Date Expiration Date Visits Re quested Visits Authorized [id number] 1 1 Encounter Details Date Type Department Care Team (Late st Contact Info) Description 07/28/2019 10:40 EDT - 07/28/2019 11:25 EDT Surgery [facility] Operating Room [address] [place] [address] Caleb Cabello MD [address] [facility], [address] [place] [address] Cataract Extraction w/Intraocular Lens Implant, Left Eye [60410 (CPT??)] Surgery Details Date/Time Status Location OR Service Patient Class Case Class Case Type Trauma Case? 07/28/19 1040 Posted [facility] OR FOR [facility] H - Elective Panel 1 Procedure LRB Anes Op Region Wound Class Comments Cataract Extraction w/Intraocular Lens Implant, Left Eye Left Monitored Anesthesia Care Eye Class I/ Clean Goinotomy, Left Eye Left Monitored Anesthesia Care Eye Class I/ Clean Please reduce the total time for these two procedures to [address] Cabello's Average time for these combined procedures [place] Blade Gonioprism Surgeon Surgeon Role Service [...] have Coronavirus / COVID-19? No / Unsure 07/28/2019 8:44 EDT documented as of this encounter Last Filed Vital Signs Vital Sign Reading Time Taken Comments Blood Pressure 158/94 07/28/2019 0928 EDT Pulse - - Temperature 36.5 ??C (97.7 ??F) 07/28/2019 0928 EDT Respiratory Rate 16 07/28/2019 0928 EDT Oxygen Saturation 96% 07/28/2019 0928 EDT Inhaled Oxygen Concentration - - Weight 87.7 kg (193 lb 5.5 oz) 07/28/2019 0917 E DT Height - - Body Mass Index 26.59 07/24/2019 1358 EDT documented in this encounter Discharge Instructions * Discharge Instructions* Caleb Cabello MD - 07/28/2019 9:20 EDT Post-Operative Cataract Surgery Instructions Caleb Cabello MD Leave the patch and shield on overnight tonight. It will be removed in the office tomorrow. The eyemay be mildly sore; take Tylenol or other ejfs-clx-fofwptq pain reliever if needed, following the directions on the package. If you have severe pain or nausea, call Dr. Cabello or [facility] ([phone]) and ask to speak to the receiver stocker model and dye person. You do not need any medicine in [...] 2 times daily. 30 mL 3 03/23/2019 08/05/2019 ketOROLAC (ACULAR) 0.5 % ophthalmic solution 1 Drop to Left Eye. 4 x daily beginning 4 days BEFORE surgery. Dispense 1 bottle. No refill. 1 Bottle 03/23/2019 08/05/2019 loteprednol etabonate (LOTEMAX) 0.5 % ophthalmic suspension 1 Drop to Left Eye. 4 x Daily beginning AFTER Surgery. Shake well each time. Dispense 5 ml bottle. No refill. 5 mL 03/23/2019 08/12/2019 ofloxacin (OCUFLOX) 0.3 % ophthalmic solution 1 Drop to Left Eye. 4 x daily beginning 4 days BEFORE surgery. Dispense 1 bottle. No refill. 1 Bottle 03/23/2019 08/05/2019 timolol (TIMOPTIC) 0.5 % ophthalmic solution Place 1 Drop into both eyes 2 times daily. 30 mL 3 03/23/2019 05/02/2020 travoprost (TRAVATAN Z) 0.004 % ophthalmic solution Place 1 Drop into both eyes every evening. 12.5 mL 3 06/09/2019 06/16/2020 documented as of this encounter Discharge Disposition Disposition Code Departure Means Destination Home or Self [facility] documented in this encounter H&P Notes * Caleb Cabello MD - 07/28/2019917 EDT The preoperative history and physical which was performed within 30 days of this procedure has been reviewed and the clinically appropriate elements of the physical examination have been repeated. There are no changes to the documented history and physical or if so such changes are documented below Caleb Cabello MD 07/28/2019 9:18 Source Note - INSTRUMENT REPAIR SUPERVISOR, SCAN 2 - 07/21/2019 12:09 EDT documented in this encounter OR Notes * OR Surgeon - Caleb Cabello MD - 07/28/2019917 EDT Date of Procedure: 07/28/19 Preoperative Dx: Primary open angle glaucoma, severe stage, and visually significant cataract, lefteye Postoperative Dx: Same Procedure: Goniotomy and complex cataract (phacoemulsification, iris hooks, and IOL implant), left eye. Surgeon: Tina Cabello MD Anesthesia: Topical [...] to construct a paracentesis at approx the 4:30 position. Approx 0.5 ml of preservative-free lidocaine was injected into the anterior chamber. Viscoat was used to firm and deepen the anterior chamber. The iris was minimally dilated and showed very poor tone. To open and stabilize the iris, five iris hooks were inserted circumferentially around the limbus. A 15* blade was used to make each incision for the hooks. A 2.75 mm keratome was used to construct a main corneal wound at approx the 2:30 position. A cystatome needle was used to begin a capsullorhexis, which was completed with the utrata forceps, forming a continuous curvilinearcapsullorhexis. BSS was injected through a 30-gauge cannula to hydrodissect the nuclear. A kuglen hook was used to rotate the nucleus. The phacoemulsification probe was used, together with a chopper,and the nucleus was removed using a [id number]-czaywsi technique. The irrigation and aspiration handpiece were used to remove cortex. The bag was gently inflated with healon; the bag appeared intact. An Jaspal model [id number], power 18.5 was injected and positioned within the bag. The five iris hooks were removed. The anterior chamber was inflated with Healon, to deepen and firm it. The patient's head was tilted approx 45* away from the surgeon, and the scope was similarly tilted to an angle of approx 45*. Using a gonioprism, the angle was visualized and the [employer] goniotomy blade was used to excise a strip of trabecular meshwork, measuring approx 4 clock hours. The patient's head and the microscope were returned to primary position. The irrigation and aspiration handpiece was used to remove healon from the eye. BSS was injected into the anterior chamber to adjust the eye toward physiologic pressure and also to hydrate the corneal wounds. None of the wounds leaked. The lid speculum was removed. A vigamox drop and maxitrol ointment were applied to the eye; timolol 0.5 was applied to the eye; the eye was patched and shielded. The patient was taken to the recovery room in stable condition. documented in this encounter Miscellaneous Notes * PAT Note - Mirtha Nagel - 07/27/2019 0935 EDT I personally called Mr. Tavares this morning to f/u on his + Covid screening during his PAT. He reports he is feeling fine, no coughing, no runny nose and does have both senses of taste and smell. No further testing or follow up needed documented in this encounter Plan of Treatment Not on file documented as of this encounter Procedures Procedure Name Priority Date/Time Associated Diagnosis Comments IMPLANT RECORD - SCANNED 08/11/2019 7:18 EDT GONIOTOMY 07/28/2019 10:30 EDT Combined forms of age-related cataract of left eye EXTRACTION, CATARACT, EXTRACAPSULAR, WITH IOL INSERTION 07/28/2019 10:30 EDT Combined forms of age-related cataract of left eye POCT GLUCOSE, INTERFACED Routine 07/28/2019 9:12 EDT documented in this encounter Results * IMPLANT RECORD - SCANNED (08/11/2019 7:18 EDT) 08/11/2019 7:18 EDT Scan 2 Ocean Import Representative PROCEDURE/MINOR MEENA GICAL ORDERABLES * (ABNORMAL) POCT GLUCOSE, INTERFACED (07/28/2019 9:12 EDT) Glucose, POC 201(H) 70 - 100 mg/dL 07/28/2019 9:17 EDT [facility] service station console operator ID [id number] 07/28/2019 9:17 EDT [facility] HN LAB POC COMMENT (GLUCOSE) Test Performed by Nursing Services 07/28/2019 9:17 EDT [facility] Blood CAPILLARY BLOOD / Unknown 07/28/2019 9:12 EDT 07/28/2019 9:17 EDT Caleb Cabello MD POINT OF CARE TEST O RDERAMARY ANN [facility] [address] [place] [address] documented in this encounter Visit Diagnoses Diagnosis Combined forms of age-related cataract of left eye- Primary Other and combined forms of senile cataract Combined forms of age-related cataract of left eye Other and combined forms of senile cataract documented in this encounter Admitting Diagnoses Diagnosis Combined forms of age-related cataract of left eye Other and combined forms of senile cataract documented in this encounter Administered Medications Inactive Administered Medications - up to 3 most recent administrations Medication Order MAR Action Action Date Dose Rate Site acetaminophen (TYLENOL) solution unit dose cup 995 mg 995 mg (rounded from 1,000 mg), oral, PRN, 1 dose, Starting on Sat07/28/19 at 1117, Until Sat07/28/19 at 1403, Pain, Routine, Recovery (only) acetaminophen (TYLENOL) tablet 1,000 mg 1,000 mg, oral, PRN, 1 dose, Starting on Sat07/28/19 at 1117, Until Sat07/28/19 at 1403, Pain, Routine, Recovery (only) atropine 0.1 mg/mL syringe 0.5 mg 0.5 mg, intravenous, PRN, Starting on Sat07/28/19 at 1117, Until Sat07/28/19 at 1403, Symptomatic HR < 50, Routine, Recovery (only) balanced salt solution inrrigation solution (BSS PLUS) 500 mL, EPINEPHrine HCl (PF) (ADRENALIN) 0.5 mL irrigation As needed, Starting on Sat07/28/19 at 1024, Until Sat07/28/19 at 1035, Routine, Intraprocedure Given 07/28/2019 10:24 EDT 500 mL Left Eye balanced salts (BSS) ophthalmic solution As needed, Starting on Sat07/28/19 at 1020, Until Sat07/28/19 at 1021, Routine, Intraprocedure Given 07/28/2019 10:20 EDT 15 mL Left Eye chondroitin-sodium hyaluronate (VISCOAT) ophthalmic solution As needed, Starting on Sat07/28/19 at 1021, Until Sat07/28/19 at 1035, Routine, Intraprocedure Given 07/28/2019 10:21 EDT 0.5 mL Left Eye cyclopentolate (CYCLOGYL) 2 % ophthalmic solution 1 Drop 1 Drop, left eye, PREOP LINKED EYE MEDS-SEE ADMIN INSTRUCTIONS, 3 doses, First dose on Sat07/28/19 at 0945, Last dose on Sat07/28/19 at 0955, Routine, Preprocedure Given 07/28/2019 9:48 EDT 1 Drop Given 07/28/2019 9:47 EDT 1 Drop Given 07/28/2019 9:46 EDT 1 Drop dextrose 50 % solution 12.5 g 12.5 g, intravenous, PRN, Starting on Sat07/28/19 at 1040, Until Sat07/28/19 at 1403, Low Blood Sugar, Routine, Preprocedure fentaNYL citrate (PF) injection 25-50 mcg 25-50 mcg, intravenous, EVERY 5 MIN PRN, Starting on Sat07/28/19 at 1117, Until Sat07/28/19 at 1403, Pain, Routine, Recovery (only) glucagon injection 1 mg 1 mg, intramuscular, PRN, Starting on Sat07/28/19 at 1040, Until Sat07/28/19 at 1403, Low Blood Sugar, Routine, Preprocedure ketOROLAC tromethamine (ACULAR LS) 0.4 % ophthalmic solution 1 Drop 1 Drop, left eye, PREOP LINKED EYE MEDS-SEE ADMIN INSTRUCTIONS, 3 doses, First dose on Sat07/28/19 at 0945, Last dose on Sat07/28/19 at 0955, Routine, Preprocedure Given 07/28/2019 9:45 EDT 1 Drop Given 07/28/2019 9:44 EDT 1 Drop Given 07/28/2019 9:43 EDT 1 Drop lactated ringers (LR) infusion at 25 mL/hr, intravenous, CONTINUOUS, Starting on Sat07/28/19 at 1000, Until 07/28/19 at 1403, Routine, Preprocedure Continued by Anesthesia 07/28/2019 10:35 EDT New Bag 07/28/2019 9:30 EDT 25 mL/hr lactated ringers (LR) infusion at 75 mL/hr, intravenous, CONTINUOUS, Starting on Sat07/28/19 at 1145, Until Sat07/28/19 at 1403, Routine, Recovery (only) lidocaine (PF) 10 mg/mL (1 %) injection 2 mg 2 mg, intradermal, PRN, 4 doses, Starting on Sat07/28/19 at 0930, Until Sat07/28/19 at 1403, peripheral intravenous catheter placement, Routine, Preprocedure lidocaine (PF) 10 mg/mL (1 %) injection As needed, Starting on Sat07/28/19 at 1022, Until Sat07/28/19 at 1035, Routine, Intraprocedure Given 07/28/2019 10:22 EDT 2 mL moxifloxacin (VIGAMOX) 0.5 % ophthalmic solution 1 Drop 1 Drop, left eye, PREOP LINKED EYE MEDS-SEE ADMIN INSTRUCTIONS, 3 doses, First dose on Sat07/28/19 at 0945, Last dose on Sat07/28/19 at 0955, Routine, Preprocedure Given 07/28/2019 9:42 EDT 1 Drop Given 07/28/2019 9:41 EDT 1 Drop Given 07/28/2019 9:40 EDT 1 Drop moxifloxacin (VIGAMOX) 0.5 % ophthalmic solution As needed, Starting on Sat07/28/19 at 1023, Until Sat07/28/19 at 1035, Routine, Intraprocedure Given 07/28/2019 10:23 EDT 1 Drop Left Eye naloxone (NARCAN) injection 0.2 mg 0.2 mg, intravenous, PRN, Starting on Sat07/28/19 at 1117, Until Sat07/28/19 at 1403, Opioid Reversal, Routine, Recovery (only) ondansetron (PF) (ZOFRAN) injection 4 mg 4 mg, intravenous, PRN, 1 dose, Starting on Sat07/28/19 at 1117, Until Sat07/28/19 at 1403, Nausea, Vomiting, Routine, Recovery (only) phenylephrine (MYDFRIN) 2.5 % ophthalmic solution 1 Drop 1 Drop, left eye, PREOP LINKED EYE MEDS-SEE ADMIN INSTRUCTIONS, 3 doses, First dose on Sat07/28/19 at 0945, Last dose on Sat07/28/19 at 0955, Routine, Preprocedure Given 07/28/2019 9:54 EDT 1 Drop Given 07/28/2019 9:53 EDT 1 Drop Given 07/28/2019 9:52 EDT 1 Drop proparacaine (ALCAINE) 0.5 % ophthalmic solution 1 Drop 1 Drop, left eye, PREOP LINKED EYE MEDS-SEE ADMIN INSTRUCTIONS, 1 dose, First dose on Sat07/28/19 at 0945, Routine, Preprocedure Given 07/28/2019 9:39 EDT 1 Drop sodium hyaluronate (HEALON) ophthalmic injection As needed, Starting on Sat07/28/19 at 1026, Until Sat07/28/19 at 1035, Routine, Intraprocedure Given 07/28/2019 10:26 EDT 10 mg Left Eye timolol (TIMOPTIC) 0.5 % ophthalmic solution As needed, Starting on Sat07/28/19 at 1028, Until Sat07/28/19 at 1035, Routine, Intraprocedure Given 07/28/2019 10:28 EDT 1 Drop tropicamide (MYDRIACYL) 1 % ophthalmic solution 1 Drop 1 Drop, left eye, PREOP LINKED EYE MEDS-SEE ADMIN INSTRUCTIONS, 3 doses, First dose on Sat07/28/19 at 0945, Last dose on Sat07/28/19 at 0955, Routine, Preprocedure Given 07/28/2019 9:51 EDT 1 Drop Given 07/28/2019 9:50 EDT 1 Drop Given 07/28/2019 9:49 EDT 1 Drop documented in this encounter Active and Recently Administered Medications Times are shown in EDT. Scheduled Medication Order 07/26/2019 07/27/2019 07/28/2019 cyclopentolate (CYCLOGYL) 2 % ophthalmic solution 1 Drop (COMPLETED) 1 Drop, left eye, PREOP LINKED EYE MEDS-SEE ADMIN INSTRUCTIONS, 3 doses, First dose on Sat07/28/19 at 0945, Last dose on Sat07/28/19 at 0955, Routine, Preprocedure 0946 (Given - Provid er: Rosemarie Zepeda RN)0947 (Given - Provider: Rosemarie Zepeda RN)0948 (Given - Provider: Rosemarie Zepeda RN) ketOROLAC tromethamine (ACULAR LS) 0.4 % ophthalmic solution 1 Drop (COMPLETED) 1 Drop, left eye, PREOP LINKED EYE MEDS-SEE ADMIN INSTRUCTIONS, 3 doses, First dose on Sat07/28/19 at 0945, Last dose on Sat07/28/19 at 0955, Routine, Preprocedure 0943 (Given - Provid er: Rosemarie Zepeda RN)0944 (Given - Provider: Rosemarie Zepeda RN)0945 (Given - Provider: Rosemarie Zepeda RN) moxifloxacin (VIGAMOX) 0.5 % ophthalmic solution 1 Drop (COMPLETED) 1 Drop, left eye, PREOP LINKED EYE MEDS-SEE ADMIN INSTRUCTIONS, 3 doses, First dose on Sat07/28/19 at 0945, Last dose on Sat07/28/19 at 0955, Routine, Preprocedure 0940 (Given - Provid er: Rosemarie Zepeda RN)0941 (Given - Provider: Rosemarie Zepeda RN)0942 (Given - Provider: Rosemarie Zepeda RN) phenylephrine (MYDFRIN) 2.5 % ophthalmic solution 1 Drop (COMPLETED) 1 Drop, left eye, PREOP LINKED EYE MEDS-SEE ADMIN INSTRUCTIONS, 3 doses, First dose on Sat07/28/19 at 0945, Last dose on Sat07/28/19 at 0955, Routine, Preprocedure 0952 (Given - Provid er: Rosemarie Zepeda RN)0953 (Given - Provider: Rosemarie Zepeda RN)0954 (Given - Provider: Rosemarie Zepeda RN) proparacaine (ALCAINE) 0.5 % ophthalmic solution 1 Drop (COMPLETED) 1 Drop, left eye, PREOP LINKED EYE MEDS-SEE ADMIN INSTRUCTIONS, 1 dose, First dose on Sat07/28/19 at 0945, Routine, Preprocedure 0939 (Given - Provid er: Rosemarie Zepeda RN) tropicamide (MYDRIACYL) 1 % ophthalmic solution 1 Drop (COMPLETED) 1 Drop, left eye, PREOP LINKED EYE MEDS-SEE ADMIN INSTRUCTIONS, 3 doses, First dose on Sat07/28/19 at 0945, Last dose on Sat07/28/19 at 0955, Routine, Preprocedure 0949 (Given - Provid er: Rosemarie Zepeda RN)0950 (Given - Provider: Rosemarie Zepeda RN)0951 (Given - Provider: Rosemarie Zepeda RN) Continuous Medication Order 07/26/2019 07/27/2019 07/28/2019 lactated ringers (LR) infusion at 25 mL/hr, intravenous, CONTINUOUS, Starting on Sat07/28/19 at 1000, Until Sat07/28/19 at 1403, Routine, Preprocedure 0930 (New Bag - Prov ider: Rosemarie Zepeda RN)1035 (Continued by Anesthesia - Provider: Jasmin Leblanc DO)1133 (Anesthesia Volume Adjustment - Provider: Jasmin Leblanc DO) lactated ringers (LR) infusion at 75 mL/hr, intravenous, CONTINUOUS, Starting on Sat07/28/19 at 1145, Until Sat07/28/19 at 1403, Routine, Recovery (only) 1145 (Canceled Entry - Provider: Batch Job User Admin - Comment: Automatically canceled at discontinue of medication order) PRN Medication Order 07/26/2019 07/27/2019 07/28/2019 acetaminophen (TYLENOL) solution unit dose cup 995 mg(Linked Group 1) 995 mg (rounded from 1,000 mg), oral, PRN, 1 dose, Starting on Sat07/28/19 at 1117, Until Sat07/28/19 at 1403, Pain, Routine, Recovery (only) acetaminophen (TYLENOL) tablet 1,000 mg(Linked Group 1) 1,000 mg, oral, PRN, 1 dose, Starting on Sat07/28/19 at 1117, Until Sat07/28/19 at 1403, Pain, Routine, Recovery (only) atropine 0.1 mg/mL syringe 0.5 mg 0.5 mg, intravenous, PRN, Starting on Sat07/28/19 at 1117, Until Sat07/28/19 at 1403, Symptomatic HR < 50, Routine, Recovery (only) balanced salt solution inrrigation solution (BSS PLUS) 500 mL, EPINEPHrine HCl (PF) (ADRENALIN) 0.5 mL irrigation (CANCELED) As needed, Starting on Sat07/28/19 at 1024, Until Sat07/28/19 at 1035, Routine, Intraprocedure 1024 (Given - Provid er: Caleb Cabello MD - Comment: part 1 [id number] part 2 [id number] epi [id number]) balanced salts (BSS) ophthalmic solution (CANCELED) As needed, Starting on Sat07/28/19 at 1020, Until e 07/28/19 at 1021, Routine, Intraprocedure 1020 (Given - Provid er: Josefina Hitchcock [facility]) chondroitin-sodium hyaluronate (VISCOAT) ophthalmic solution (CANCELED) As needed, Starting on Sat07/28/19 at 1021, Until Sat07/28/19 at 1035, Routine, Intraprocedure 1021 (Given - Provid er: Caleb Cabello MD - Comment: [id number]) dextrose 50 % solution 12.5 g 12.5 g, intravenous, PRN, Starting on Sat07/28/19 at 1040, Until Sat07/28/19 at 1403, Low Blood Sugar, Routine, Preprocedure fentaNYL citrate (PF) injection 25-50 mcg 25-50 mcg, intravenous, EVERY 5 MIN PRN, Starting on Sat07/28/19 at 1117, Until Sat07/28/19 at 1403, Pain, Routine, Recovery (only) glucagon injection 1 mg 1 mg, intramuscular, PRN, Starting on Sat07/28/19 at 1040, Until e 07/28/19 at 1403, Low Blood Sugar, Routine, Preprocedure lidocaine (PF) 10 mg/mL (1 %) injection 2 mg 2 mg, intradermal, PRN, 4 doses, Starting on Sat07/28/19 at 0930, Until Sat07/28/19 at 1403, peripheral intravenous catheter placement, Routine, Preprocedure lidocaine (PF) 10 mg/mL (1 %) injection (CANCELED) As needed, Starting on Sat07/28/19 at 1022, Until Sat07/28/19 at 1035, Routine, Intraprocedure 1022 (Given - Provid er: Caleb Cabello MD - Comment: [id number]) moxifloxacin (VIGAMOX) 0.5 % ophthalmic solution (CANCELED) As needed, Starting on 07/28/19 at 1023, Until 07/28/19 at 1035, Routine, Intraprocedure 1023 (Given - Provid er: Caleb Cabello MD) naloxone (NARCAN) injection 0.2 mg 0.2 mg, intravenous, PRN, Starting on e 07/28/19 at 1117, Until 07/28/19 at 1403, Opioid Reversal, Routine, Recovery (only) ondansetron (PF) (ZOFRAN) injection 4 mg 4 mg, intravenous, PRN, 1 dose, Starting on e 07/28/19 at 1117, Until 07/28/19 at 1403, Nausea, Vomiting, Routine, Recovery (only) sodium hyaluronate (HEALON) ophthalmic injection (CANCELED) As needed, Starting on e 07/28/19 at 1026, Until 07/28/19 at 1035, Routine, Intraprocedure 1026 (Given - Provid er: Caleb Cabello MD - Comment: [id number]) timolol (TIMOPTIC) 0.5 % ophthalmic solution (CANCELED) As needed, Starting on e 07/28/19 at 1028, Until 07/28/19 at 1035, Routine, Intraprocedure 1028 (Given - Provid er: Caleb Cabello MD) Linked Groups Order Group 1: acetaminophen (TYLENOL) solution unit dose cup 995 mgJump to med 995 mg (rounded from 1,000 mg), oral, PRN, 1 dose, Starting on e 07/28/19 at 1117, Until 07/28/19 at 1403, Pain, Routine, Recovery (only) Or acetaminophen (TYLENOL) tablet 1,000 mgJump to med 1,000 mg, oral, PRN, 1 dose, Starting on e 07/28/19 at 1117, Until 07/28/19 at 1403, Pain, Routine, Recovery (only) documented in this encounter Orders Medications Ordered That Saurav ht Not Have Been Administered Count Last Ordered Date First Ordered Date acetaminophen (TYLENOL) solu tion unit dose cup 995 mg 1 07/28/2019 acetaminophen (TYLENOL) tablet 1,000 mg 1 0 07/28/2019 atropine 0.1 mg/mL syringe 0.5 mg 1 020 dextrose 50 % solution 12.5 g 1 07/28/2019 fentaNYL citrate (PF) injection 25-50 mcg 1 07/28/2019 glucagon injection 1 mg 1 07/28/2019 lactated ringers (LR) infusion 1 07/28/2019 lidocaine (PF) 10 mg/mL (1 % ) injection 2 mg 1 07/28/2019 naloxone (NARCAN) injection 0.2 mg 1 2019 ondansetron (PF) (ZOFRAN) injection 4 mg 1 07/28/2019 Nursing Count Last Ordered Date First Orde red Date INSERT PERIPHERAL IV 1 07/28/2019 Discharge Count Last Ordered Date First Orde red Date DISCHARGE PATIENT 1 07/28/2019 documented in this encounter Care Teams Child Caregiver Relationship Specialty Start Date End Date Cary Granados, PILE DRIVING SUPERVISOR [address] [place] [address] PCP - General 05/21/17 documented as of this encounter
--- OUTSIDE RECORDS SUMMARY | 2024-01-17 13:54 | XMS_ITS | Encounter Summary ---
Author Organization [facility] Address [address] [place] [address] Care Team Providers Care Causticiser Name Role Phone Darwin Cary Dave FOOTWEAR FACTORY WORKER Primary Care Provider [phone] Reason for Visit * Reason Comments Glaucoma Encounter Details Date Type Department Care Team (Late st Contact Info) Description 07/14/2020 14:30 EDT Office Visit [facility] Ophthalmology - [address] [phone] Caleb Cabello MD [address] [facility], [address] 5 [place] [address] Social History Tobacco Use Types Packs/Day Years Used Date Smoking Tobacco: Former Smokeless Tobacco: Current Chew Interpersonal Safety Answer Date Record ed Physically Hurt Never 10/11/2019 Verbally Threaten Not on file 10/11/2019 Sex and Gender Information Value Date Recorded Sex Assigned at Not on file Gender Identity Male 05/20/2019 12:48 EDT Sexual Orientation Not on file documented as of this encounter Progress Notes * Caleb Cabello MD - 07/14/2020 1430 EDT Chief Complaint Patient presents with ??? Glaucoma Comments F/U ~2.5 M: IOP, HVF 24-2 OU, paremyd OU. Intermittent foggy right eye more than left. Longstanding floater right eye. occ'l flashes both eyes. No pain. Dry eyes. New shoulder left side, June 02, 2020. Current eye drops: kevyn 2/2, brim 2/2, ariane hs/hs, ATs HPI :The patient is a 80 y.o. male Physician HPI: Pt c/o intermittent foggy vision in R more than L eye Has longstanding floater in the R eye -- occasional flashes in both eyes denies eye redness -- denies eye pain denies recent eye trauma -- denies new eye medicines Physician ROS: Pt has diabetes -- Pt denies new cough / shortness of breath Right Eye: Blurred Vision, Dryness Left Eye: Blurred Vision, Dryness Visual Aid: Current Rx Age Location: Both eyes Pain: 0 - No pain Quality: Blurry Severity: Moderate Duration: Years Timing: Constant Lasts: Continuous Context: F/U ~2.5 M: IOP, HVF 24-2 OU, paremyd OU. Intermittent foggy right eye more than left. Longstanding floater right eye. occ'l flashes both eyes. No pain. Dry eyes. New shoulder left side, June 02, 2020.Current eye drops: kevyn 2/2, brim 2/2, ariane hs/hs, ATs Modifying factors: kevyn 2/2, brim 2/2, ariane hs/hs Associated Signs & Symptoms: LTG Attestation: ROS Constitutional: NL ENT/Mouth Cardiovascular: High Blood Pressure, High Cholesterol Respiratory: Gastrointestinal: Genitourinary: Musculoskeletal: Integumentary: Neurologic: NL Psychiatric: Endocrine: Diabetes(Last A1C 7.2) Hematologic: Immunologic: Drug Allergy Visual Training Aide: Exposures: None Other: Attestation: Allergies include: Amoxicillin Patient Active Problem List Diagnosis ??? Low-tension glaucoma of both eyes, severe stage ??? Pseudophakia Outpatient Medications Marked as Taking for the 07/14/20 encounter (Office Visit) with Caleb Cabello MD Medication Sig ??? brimonidine (ALPHAGAN) 0.2 % ophthalmic solution Place 1 Drop into both eyes 2 times daily. (Patient taking differently: Place 1 Drop into the left eye 2 times daily. ) ??? cyanocobalamin (VITAMIN B-12) 500 mcg tablet Take 500 mcg by mouth daily. ??? famotidine (PEPCID) 20 mg tablet Take 20 mg by mouth 2 times daily. ??? ferrous gluconate (FERGON) 324 mg (38 mg iron) tablet Take 324 mg by mouth 2 times daily with breakfast and dinner. ??? gabapentin (NEURONTIN) 300 mg capsule Take 300 mg by mouth 3 times daily. ??? INSULIN DETEMIR (LEVEMIR FLEXPEN SUBQ) Inject 30 Units into the skin daily. ??? lisinopril (PRINIVIL, ZESTRIL) 10 mg tablet Take 10 mg by mouth daily. ??? metFORMIN (GLUCOPHAGE) 500 mg tablet Take 1,000 mg by mouth 2 times daily with breakfast and dinner. ??? NAPROXEN SODIUM (ALEVE ORAL) Take 1 Tab by mouth daily. ??? simvastatin (ZOCOR) 20 mg tablet Take 20 mg by mouth daily. ??? SITagliptin (JANUVIA) 50 mg tablet Take 50 mg by mouth daily. ??? tamsulosin (FLOMAX) 0.4 mg capsule Take 0.4 mg by mouth daily. ??? timolol (TIMOPTIC) 0.5 % ophthalmic solution Place 1 Drop into the left eye 2 times daily. ??? travoprost (TRAVATAN Z) 0.004 % ophthalmic solution Place 1 Drop into the left eye every evening. ??? vit A/vit C/vit E/zinc/copper (PRESERVISION AREDS ORAL) Take by mouth. Past Medical History: Diagnosis Date ??? Anemia ??? Arthritis 07/24/19- Left shoulder, All over hands and feet ??? BPH (benign prostatic hyperplasia) 07/24/19- per MD note ??? Cataract ??? Decreased range of motion of neck 07/24/19- Creaks and cracks shoulder neck pain with movement ??? Diabetes mellitus ([facility]) 07/24/19- med controlled, 140-150's usually. ??? Exercise involving walking 07/24/19- 1-2 miles temperature permitting. No SOB, ??? Eye trauma may be black eye ??? GERD (gastroesophageal reflux disease) 07/24/19- Currently controlled with famotidine ??? Glaucoma ??? History of anemia 07/24/19- Per MD note ??? History of epidural anesthesia 07/24/19- Spinal once, cannot remember per pt ??? History of general anesthesia ??? Hypertension 07/24/19- Med controlled ??? Other states following surgery of eye and adnexa ??? Pain 07/24/19- Left shoulder pain ??? Wears dentures full uppers and lowers Past Surgical History: Procedure Laterality Date ??? CATARACT REMOVAL ??? CATARACT REMOVAL WITH IMPLANT ??? EYE SURGERY ??? HERNIA REPAIR 2005 ??? LASER TRABECULOPLASTY ??? LASIK Bilateral 1999 done in [place] Family History Problem Relation Age of Onset ??? Diabetes Mother ??? Cancer Brother ??? Glaucoma Neg Hx ??? Macular Degeneration Neg Hx Patient reports that he quit smoking about 49 years ago. His smokeless tobacco use includes chew. He reports that he does not use drugs. Recent HbA1c: No results found for: HGBA1C Base Eye Exam Visual Acuity (Snellen - Linear) Right Left Dist cc 20/30 20/25 -2 Dist ph cc NI NI Tonometry (Applanation, 14:52) Right Left Pressure 6 8 Tonometry #2 (Applanation, 15:34) Right Left Pressure 8 10 Pupils Shape Right Round Left Irregular Visual Alfaro Right Left Full Full Extraocular Movement Right Left Full Full Neuro/Psych Oriented x3: Yes Mood/Affect: Normal Slit Lamp and Fundus Exam External Exam Right Left External Normal Normal Slit Lamp Exam Right Left Lids/Lashes 1+ Blepharitis 1+ Blepharitis Conjunctiva/Sclera White and quiet White and quiet Cornea Krupa Clear Anterior Chamber Deep and quiet Deep and quiet Iris Round and reactive Irregular pupil Lens PCIOL PCIOL Vitreous Clear Clear, PVD Fundus Exam Right Left Disc tilted ON to rim inferior, small nerve C/D Ratio 0.9 0.5 Macula Normal Flat, central circular RPE loss Vessels Normal Normal Refraction Wearing Rx Sphere Cylinder [place] Right -1.00 +1.00 140 Left +0.00 +0.75 017 Type: SVL IMPRESSION & PLAN: 1. Low-tension glaucoma of both eyes, severe stage -- referred from optometry (Dr Hayes, OD at [facility]), pt last seen mid-2017 then lost to F/U -- IOP very low but hard to assess accurately given extreme thin cornea s/p LASIK OU -- HVF 24-2 OU today (07/29) reliable, R eye severe defects fluctuating slowly worse, L eye early defects and improved today -- OCT NFL OU (03/30) fluctuating at floor levels OU, mac OCT with perifoveal PED L eye, no AMD -- D/W pt, good stability of exam and tests, cont rx -- F/U 6 M: IOP, HVF 24-2 FAST OU, paremyd OU ON: 0.9 / 0.5, to rim inf, small ON -- likely APD OD Tmax: CCT: 386 / 395 -- s/p LASIK OU Gonio: Open to CBB, 1+ pigment OU (12/25) VF: severe inferior > mod sup arc / early superior arc, steep defect at fixation (07/29) OCT: 54 / 59 (03/30) Surg: SLT OD (05/26), goniotomy OS (07/28) Gtts: timolol OU BID, brimonidine OU BID, travatan OU QHS Allergy: dorz-timolol (severe stinging, possible allergy) 2. Pseudophakia, bilateral -- note pre-op LASIK OU OD: PCIOL / goniotomy (08/11/19) -- initial hypotony, possibly had cyclodialysis cleft OS: PCIOL / iris hooks / goniotomy (07/28/19) Cont glasses per optometry (Pinard, OD) 3. Posterior vitreous detachment, left eye -- retina stable OU on DFEx (03/30) 4 Insulin dependent diabetes -- no retinopathy on DFEx (03/30) I have reviewed the past medical, family, social and surgical history. I have reviewed the meds, allergies, and problem list. I performed my own HPI and reviewed the ROS. I personally completed the exam. The patient was instructed to call our office or go to emergency room if worse vision, worse symptoms, or new/other concerns arise. Caleb Cabello MD I am scribing for Dr. Cabello, while he is performing the service. Caleb Cabello MD documented in this encounter Plan of Treatment Not on file documented as of this encounter Procedures Procedure Name Priority Date/Time Associated Diagnosis Comments OVALLES VF 24-2 STANDARD - OU - BOTH EYES Routine 07/14/2020 15:01 EDT Low-tension glaucoma of both eyes, severe stage documented in this encounter Results * OVALLES VF 24-2 STANDARD - OU - BOTH EYES (07/14/2020 15:01 EDT) Narrative [facility] POINT OF CARE - 07/14/2020 15:01 EDT See interpretation / assessment in main note. Caleb Cabello MD OPHTH VISUAL FIELD [facility] POINT OF CARE documented in this encounter Visit Diagnoses Diagnosis Low-tension glaucoma of both eyes, severe stage- Primary Low tension open-angle glaucoma Pseudophakia Lens replaced by other means documented in this encounter Eye Exam Visual Acuity (Snellen - Linear) Right eye Left eye Dist cc 20/30 20/25 -2 Dist ph cc NI NI Tonometry #1 (Applanation, 14:52) Right eye Left eye Pressure 6 8 Tonometry #2 (Applanation, 15:34) Right eye Left eye Pressure 8 10 Pupils Shape Right eye Round Left eye Irregular Visual Alfaro Right eye Left eye Full Full Extraocular Movement Right eye Left eye Full Full Neuro/Psych Oriented x3: Yes Mood/Affect: Normal External Exam Right eye Left eye External Normal Normal Slit Lamp Exam Right eye Left eye Lids/Lashes 1+ Blepharitis 1+ Blepharitis Conjunctiva/Sclera White and quiet White and jagdish et Cornea Krupa Clear Anterior Chamber Deep and quiet Deep and quiet Iris Round and reactive Irregular pup il Lens PCIOL PCIOL Vitreous Clear Clear, PVD Fundus Exam Right eye Left eye Disc tilted ON to rim inferior, small nerve C/D Ratio 0.9 0.5 Macula Normal Flat, central ci rcular RPE loss Vessels Normal Normal Wearing Rx Sphere Cylinder [place] Right eye -1.00 +1.00 140 Left eye +0.00 +0.75 017 Type: SVL Care Teams Causticiser Relationship Specialty Start Date End Date Cary Granados NP [address] [place] [address] PCP - General 05/21/17 documented as of this encounter
--- OUTSIDE RECORDS SUMMARY | 2024-01-17 13:54 | XMS_ITS | Encounter Summary ---
Author Organization [facility] Address [address] [place] [address] Care Team Providers Care Instructor Extension Work Name Role Phone Cary Granados COUNSELING SPECIALIST Primary Care Provider [phone] Reason for Visit * Reason Comments Medications Refill Encounter Details Date Type Department Care Team (Late st Contact Info) Description 10/08/2023 Refill [facility] Ophthalmology - [address] [phone] Derek Alonzo MD [address] [facility], [address] [place] [address] Medications Refill Social History Tobacco [...] Dispensed Refills Start Date End Da te timolol (TIMOPTIC) 0.5 % ophthalmic solution INSTILL 1 DROP INTO BOTH EYES TWICE DAILY 30 mL 10/08/2023 documented in this encounter Plan of Treatment Not on file documented as of this encounter Visit Diagnoses Not on filedocumented in this encounter Discontinued Medications Medication Sig Discontinue Reason Start Date End Da te timolol (TIMOPTIC) 0.5 % ophthalmic solution Place 1 Drop into both eyes 2 times daily. 08/28/2022 10/08/2023 documented as of this encounter Care Teams Instructor Extension Work Relationship Specialty Start Date End Date Cary Granados, OSCAR [address] [place] [address] PCP - General 05/21/17 documented as of this encounter
--- OUTSIDE RECORDS SUMMARY | 2024-01-17 13:54 | XMS_ITS | Encounter Summary ---
Author Organization [facility] Address [address] [place] [address] Care Team Providers Care Mule Packer Name Role Phone Darwin Cary Dave TELEGRAPH MESSENGER Primary Care Provider [phone] Reason for Visit * Reason Comments Eye Exam Encounter Details Date Type Department Care Team (Late st Contact Info) Description 01/05/2022 13:00 EDT Office Visit [facility] Ophthalmology - [address] [phone] Caleb Cabello MD [address] [facility], [address] [place] [id number] Social History Tobacco Use Types Packs/Day Years [...] DROP INTO BOTH EYES IN THE EVENING 7.5 mL 3 01/05/2022 01/16/2023 brinzolamide (AZOPT) 1 % ophthalmic suspension Place 1 Drop into both eyes 2 times daily. 20 mL 6 01/05/2022 05/24/2023 documented in this encounter Progress Notes * Caleb Cabello MD - 01/05/2022 1300 EDT No chief complaint on file. Comments F/U 6 M: IOP, HVF 24-2 FAST both eyes, paremyd both eyes, kevyn 2/2, brim 2/2, ariane hs/hs, ATs, righteye still having film over VA off and on and lots of floaters, left eye VA not bad same, same floaters, same rare flashes, no pain, HPI :The patient is a 81 y.o. male Physician HPI: Pt c/o R eye still has film over vision, L eye seems stable Many floaters, but this is not new denies eye redness -- denies eye pain denies recent eye trauma -- denies new eye medicines Physician ROS: Pt has diabetes -- Pt denies new cough / shortness of breath Right Eye: Blurred Vision, Floaters, Flashes Left Eye: Blurred Vision, Floaters, Flashes Visual Aid: Glasses Current Rx Age Location: Both eyes Pain: 0 - No pain Quality: Blurry Severity: Mild Duration: Years Timing: Constant Lasts: Continuous Context: F/U 6 M: IOP, HVF 24-2 FAST OU, paremyd both eyes Modifying factors: drops Associated Signs & Symptoms: no pain Attestation: ROS Constitutional: ENT/Mouth Cardiovascular: High Blood Pressure, High Cholesterol Respiratory: Gastrointestinal: Heartburn Genitourinary: Musculoskeletal: Joint Pain, Muscle Pain Integumentary: Neurologic: NL Psychiatric: Endocrine: Diabetes Hematologic: NL Immunologic: NL Field Training Manager: Exposures: Other: Attestation: Allergies include: Amoxicillin Patient Active Problem List Diagnosis ??? Low-tension glaucoma of both eyes, severe stage ??? Pseudophakia Outpatient Medications Marked as Taking for the 01/05/22 encounter (Office Visit) with Caleb Cabello MD Medication Sig ??? brimonidine (ALPHAGAN) 0.2 % ophthalmic solution INSTILL 1 DROP INTO BOTH EYES TWICE DAILY ??? cyanocobalamin (VITAMIN B-12) 500 mcg tablet [...] DROP INTO BOTH EYES IN THE EVENING ??? vit A/vit C/vit E/zinc/copper (PRESERVISION AREDS ORAL) Take by mouth. Past Medical History: Diagnosis Date ??? Anemia ??? Arthritis 07/24/19- Left shoulder, All over hands and feet ??? BPH (benign prostatic hyperplasia) 07/24/19- per MD note ??? Cataract ??? Decreased range of motion of neck 07/24/19- Creaks and cracks shoulder neck pain with movement ??? Diabetes mellitus (HCC) 07/24/19- med controlled, 140-150's usually. ??? Exercise [...] TRABECULOPLASTY ??? LASIK Bilateral 1999 done in [place] Family History Problem Relation Age of Onset ??? Diabetes Mother ??? Cancer Brother ??? Glaucoma Neg Hx ??? Macular Degeneration Neg Hx Patient reports that he quit smoking about 50 years ago. His smokeless tobacco use includes chew. He reports that he does not use drugs. Recent HbA1c: No results found for: HGBA1C Base Eye Exam Visual Acuity (Snellen - Linear) Right Left Dist cc 20/30 -2 20/30 -2 Dist ph cc 20/30 +2 NI Correction: Glasses Tonometry (Applanation, 13:09) Right Left Pressure 07 05 Pupils Dark Light React APD Right 4 3 Brisk None Left 4 3 Brisk None Extraocular Movement Right Left Full Full Neuro/Psych Oriented x3: Yes Mood/Affect: Normal Dilation Both eyes: Tropicamide 1% @ 13:30 Dilation #2 Right eye: Phenylephrine 10% @ 13:40 Slit Lamp and Fundus Exam External Exam Right Left External Normal Normal Slit Lamp Exam Right Left Lids/Lashes 1+ Blepharitis 1+ Blepharitis Conjunctiva/Sclera White and quiet White and quiet Cornea Krupa Clear Anterior Chamber Deep and quiet Deep and quiet Iris Round and reactive Irregular pupil Lens PCIOL, moderate PCF PCIOL Vitreous Clear Clear, PVD Fundus Exam Right Left Disc tilted ON to rim inferior, small nerve C/D Ratio 0.9 0.5 Macula Normal Flat, central circular RPE loss Vessels Normal Normal Periphery Normal Normal IMPRESSION & PLAN: 1. Low-tension glaucoma of both eyes, severe stage -- referred from optometry (Dr Hayes, OD at [facility]), pt last seen mid-2017 then lost to F/U -- IOP extremely low but note vsery thin cornea s/p LASIK OU -- HVF 24-2 FAST OU today (12/30) reliable, R abruptly worse, L stable vs 2018-20 levels -- D/W pt, slow VF progression despite very low IOP, no easy additions to rx given his allergies, could try Azopt which in general is better tolerated than dorzolamide (dorz had caused severe stinging) or try rhopressa, also capsulotomy R eye possibly would be useful -- add brinzolamide OU BID (appears to be covered), cont other rx, F/U 6 M: IOP, HVF 24-2 FAST OU ON: 0.9 / 0.5, to rim inf, small ON -- likely APD OD Tmax: CCT: 386 / 395 -- s/p LASIK OU Gonio: Open to CBB, 1+ pigment OU (12/25) VF: severe inferior > superior arc / early steep superior arcuate (12/30) OCT: 54 / 59 (03/30) Surg: SLT OD (05/26), goniotomy OS (07/28) Drops: timolol OU BID, brimonidine OU BID, travatan OU QHS Allergy: dorz-timolol (severe stinging, possible allergy) 2. Pseudophakia, bilateral -- note pre-op LASIK OU OD: PCIOL / goniotomy (08/11/19) -- initial hypotony, possibly had cyclodialysis cleft OS: PCIOL / iris hooks / goniotomy (07/28/19) Cont glasses per optometry (Pinard, OD) 3. Posterior vitreous detachment, left eye -- retina stable OU on DFEx (12/30) 4 Insulin dependent diabetes -- no retinopathy on DFEx (12/30) I have reviewed the past medical, family, social and surgical history. I have reviewed the meds, allergies, and problem list. I performed my ownd HPI and reviewed the ROS. I personally completed the exam. The patient was instructed to call our office or go to emergency room if worse vision, worse symptoms, or new/other concerns arise. Caleb Cabello MD. I am scribing for Dr. Cabello while he performs the service, Cabrera Mccrary, HANG. documented in this encounter Plan of Treatment Not on file documented as of this encounter Procedures Procedure Name Priority Date/Time Associated Diagnosis Comments OVALLES VF 24-2 FAST - OU - BOTH EYES Routine 01/05/2022 13:02 EDT Low-tension glaucoma of both eyes, severe stage documented in this encounter Results * OVALLES VF 24-2 FAST - OU - BOTH EYES (01/05/2022 13:02 EDT) Narrative [facility] OPHTHALMOLOGY - 01/05/2022 13:02 EDT See interpretation / assessment in main note. Caleb Cabello MD OPHTH VISUAL FIELD [facility] OPHTHALMOLOGY documented in this encounter Visit Diagnoses Diagnosis Low-tension glaucoma of both eyes, severe stage- Primary Low tension open-angle glaucoma Pseudophakia Lens replaced by other means documented in this encounter Discontinued Medications Medication Sig Discontinue Reason Start Date End Da te travoprost (TRAVATAN Z) 0.004 % ophthalmic solution INSTILL 1 DROP INTO BOTH EYES IN THE EVENING Reorder 01/02/2022 01/05/2022 documented as of this encounter Eye Exam Visual Acuity (Snellen - Linear) Right eye Left eye Dist cc 20/30 -2 20/30 -2 Dist ph cc 20/30 +2 NI Correction: Glasses Tonometry (Applanation, 13:09) Right eye Left eye Pressure 07 05 Pupils Dark Light React APD Right eye 4 3 Brisk None Left eye 4 3 Brisk None Extraocular Movement Right eye Left eye Full Full Neuro/Psych Oriented x3: Yes Mood/Affect: Normal Dilation #1 Both eyes: Tropicamide 1% @ 13:30 #2 Right eye: Phenylephrine 10% @ 13:40 External Exam Right eye Left eye External Normal Normal Slit Lamp Exam Right eye Left eye Lids/Lashes 1+ Blepharitis 1+ Blepharitis Conjunctiva/Sclera White and quiet White and jagdish et Cornea Krupa Clear Anterior Chamber Deep and quiet Deep and quiet Iris Round and reactive Irregular pup il Lens PCIOL, moderate PCF PCIOL Vitreous Clear Clear, PVD Fundus Exam Right eye Left eye Disc tilted ON to rim inferior, small nerve C/D Ratio 0.9 0.5 Macula Normal Flat, central ci rcular RPE loss Vessels Normal Normal Periphery Normal Normal Care Teams Mule Packer Relationship Specialty Start Date End Date Cary Granados NP [address] [place] [address] PCP - General 05/21/17 documented as of this encounter
--- OUTSIDE RECORDS SUMMARY | 2024-01-17 13:54 | XMS_ITS | Encounter Summary ---
Author Organization [facility] Address [address] [place] [address] Care Team Providers Care Medical Care Evaluation Specialist Name Role Phone DarwinCary Dave PROFESSOR OF MUSICOLOGY Primary Care Provider [phone] Reason for Visit * Reason Comments Other Encounter Details Date Type Department Care Team (Late st Contact Info) Description 10/16/2021 Refill [facility] Ophthalmology - [address] [phone] Caleb Cabello MD [address] [facility], [address] [place] [address] Other Social History Tobacco Use Types Packs/Day Years Used Date Smoking Tobacco: Former Smokeless Tobacco: Current Chew Interpersonal Safety Answer Date Record ed Physically Hurt Never 10/11/2019 Verbally Threaten Not on file 10/11/2019 Sex and Gender Information Value Date Recorded Sex Assigned at Not on file Gender Identity Male 05/20/2019 12:48 EDT Sexual Orientation Not on file documented as of this encounter Miscellaneous Notes * Telephone Encounter - Pepe Mcclellan RN - 08/22/2022 1316 EDT Patient seen 01/05/2022. Pepe Mcclellan RN 08/22/2022 13:17 * Telephone Encounter - Sade Zhao - 08/22/2022 1313 EDT Requested refill denied, Mr. Tavares needs a follow up appointment first. documented in this encounter Plan of Treatment Not on file documented as of this encounter Visit Diagnoses Not on filedocumented in this encounter Care Teams Medical Care Evaluation Specialist Relationship Specialty Start Date End Date Cary Granados, OSCAR [address] [place] [address] PCP - General 05/21/17 documented as of this encounter
--- OUTSIDE RECORDS SUMMARY | 2024-01-17 13:54 | XMS_ITS | Encounter Summary ---
Author Organization [facility] Address [address] [place] [address] Care Team Providers Care Rubber Trimmer Name Role Phone Cary Granados SUPERVISOR PIPE MANUFACTURE Primary Care Provider [phone] Reason for Visit * Reason Comments New Med Request Encounter Details Date Type Department Care Team (Late st Contact Info) Description 08/27/2022 Refill [facility] Ophthalmology - [address] [phone] Caleb Cabello MD [address] [facility], [address] [place] [address] New Med Request Social History Tobacco Use Types Packs/Day Years [...] eyes 2 times daily. 30 mL 3 08/28/2022 10/08/2023 documented in this encounter Plan of Treatment Not on file documented as of this encounter Visit Diagnoses Not on filedocumented in this encounter Discontinued Medications Medication Sig Discontinue Reason Start Date End Da te timolol (TIMOPTIC) 0.5 % ophthalmic solution Place 1 Drop into the left eye 2 times daily. 06/23/2020 08/27/2022 documented as of this encounter Care Teams Rubber Trimmer Relationship Specialty Start Date End Date Cary Granados, SUPERVISOR PIPE MANUFACTURE [address] [place] [address] PCP - General 05/21/17 documented as of this encounter
--- OUTSIDE RECORDS SUMMARY | 2024-01-17 13:54 | XMS_ITS | Encounter Summary ---
Author Organization [facility] Address [address] [place] [address] Care Team Providers Care Management Trainee Program Stores Name Role Phone Darwin Cary B XEROX MACHINE MECHANIC Primary Care Provider [phone] Reason for Visit * Reason Comments Medications Refill Encounter Details Date Type Department Care Team (Late st Contact Info) Description 05/11/2023 Refill [facility] Ophthalmology - [address] [phone] Caleb Cabello MD [address] [facility], [address] [place] [phone] Medications Refill Social History Tobacco Use Types [...] BOTH EYES TWICE DAILY 30 mL 3 05/13/2023 08/07/2023 documented in this encounter Plan of Treatment Not on file documented as of this encounter Visit Diagnoses Not on filedocumented in this encounter Discontinued Medications Medication Sig Discontinue Reason Start Date End Da te brimonidine (ALPHAGAN) 0.2 % ophthalmic solution INSTILL 1 DROP INTO BOTH EYES TWICE DAILY 03/29/2022 05/13/2023 documented as of this encounter Care Teams Management Trainee Program Stores Relationship Specialty Start Date End Date Cary Granados, XEROX MACHINE MECHANIC [address] [place] [address] PCP - General 05/21/17 documented as of this encounter
--- OUTSIDE RECORDS SUMMARY | 2024-01-17 13:54 | XMS_ITS | Encounter Summary ---
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 [H25.813] Procedures OR XCAPSL CTRC RMVL INSJ IO LENS PROSTH W/O ECP OR RELIEVE INNER EYE PRESSURE EXTRACAP CATARACT REMOVAL W/LENS INSERTION STAGE 1 GONIOTOMY Referral ID Status Reason Start Date Expiration Date Visits Re quested Visits Authorized [id number] 1 1 Encounter Details Date Type Department Care Team (Late st Contact Info) Description 08/11/2019 10:54 EDT Anesthesia Event [facility] Operating Room [address] [place], [place] [id number] Smith Ellis MD [address] [phone] Sabrina Wells AA [address] [phone] Anesthesia Record Procedure Summary Procedure Name Responsible Anesthesiologist Anesthesia Start Time Anesthesia Stop Time Cataract Extraction w/IOL Implant, Goniotomy, RIGHT EYE (Right: Eye) Smith Ellis MD 08/11/19 1054 08/11/19 1134 Events Date Time Event Comment 08/11/2019 1054 An Start The patient was re-evaluated immediately before moderate or deep sedation use, before anesthesia induction, or before the anesthesia procedure. 1054 An Start Data 1056 Anesthesia Ready 1130 an stop data 1134 Handoff to RN I completed my handoff to the receiving nurse during which we: 1. Identified the patient 2. Identified the responsible provider 3. Reviewed the pertinent medical history 4. Discussed the surgical course 5. Reviewed intra-op anesthesia management and issues during anesthesia 6. Set expectations for post-procedure period 7. Allowed opportunity for questions and acknowledgement of understanding. 1134 An Stop Meds Name Total fentanyl citrate (PF) injection 50 mcg midazolam (VERSED) injection 1 mg/mL 2 m g lactated ringers (LR) infusion Cannot be calculated * Agents Name N2O Air Aux O2 flow * Blood No blood administrations on file. Lines, Drains, and Airways Type Details Placement Removal Wound 08/11/19; 1103; Right; Eye 08/10 1103 by Mirtha Ramirez RN Peripheral IV 08/11/19; 0957; Left , Dorsal; Hand; Inserted by RN (Daniela Tena); 1; None; 3.15% Chlorhexidine with IPA; 08/11/19; 1219; Therapy completed; No complications, Catheter intact, Dressing applied 08/11/19 0957 by Ashley Manzo RN 08/11/19 1219 by Deloris Degroot RN documented in this encounter Social History Tobacco [...] 9:10 EDT documented as of this encounter OR Notes * Anesthesia Postprocedure Evaluation - Sabrina Wells AA - 08/11/2019 1134 EDT Patient: Baron Tavares Vital signs were reviewed with the recovery nurse. Complete vitals history is available in the [facility]. Vitals Value Taken Time BP 08/11/2019 11:34 Temp 08/11/2019 11:34 Resp 08/11/2019 11:34 Pulse From Oximetry 67 BPM 08/11/2019 11:34 SpO2 98 % 08/11/2019 11:34 Vitals shown include unvalidated device data. Last Pain Score - Type of Anesthesia - MAC Anesthesia Post Evaluation Post-procedure vitals reviewed and are stable. Level of consciousness: alert and oriented Temperature status: normothermia Respiratory status: airway patent and room air Cardiovascular status: acceptable Hydration status: adequate Nausea/Vomiting: none Pain management: adequate Post-Op Assessment: patient tolerated procedure well with no complications and patient satisfied with anesthesia care Patient participation: able to participate Disposition: outpatient/home Anesthesia Complications: No apparent anesthesia complications * Anesthesia Preprocedure Evaluation - Sabrina Wells AA - 08/11/2019 1014 EDT Anesthesia Preprocedure Evaluation Patient Medical History, including Anesthesia History reviewed. Chart and Nursing Notes reviewed, including NPO status and Medication History. Additional ROS/History Findings: Blood sugar 201 in preop. Patient states he did not take his metformin for 2 days (thought he was supposed to stop it). Instructed him to take it as normally directed when he gets home and after checking blood sugar at night take his usual dose of insulin as long as BS not low. Patient verbalized understanding of this. Allergies Allergen Reactions ??? Amoxicillin Swelling Swelling of eyes and mouth Review of Systems Past Medical History: Diagnosis Date ??? Anemia ??? Arthritis 07/24/19- Left shoulder, All over hands and feet ??? BPH (benign prostatic hyperplasia) 07/24/19- per MD note ??? Cataract ??? Decreased range of motion of neck 07/24/19- Creaks and cracks shoulder neck pain with movement ??? Diabetes mellitus ([facility]) 07/24/19- med controlled, 140-150's usually. ??? [...] ??? Wears dentures full uppers and lowers Relevant Problems No relevant active problems Physical Exam Airway Mallampati: II Neck ROM: full Cardiovascular - normal exam Dental (+) upper dentures, lower dentures Pulmonary - normal exam Comments: Non-labored breathing Abdominal Anesthesia Plan ASA 3 Anesthesia Type - MAC Anesthesia plan and risks discussed. Informed consent obtained from patient. Anesthesia risks discussed with patient or legal guardian: Discussed potential risks including possible intubation and conversion to GA. PAT Note (Notes from 07/12/19 through 08/11/19) No notes of this type exist for this encounter. documented in this encounter Plan of Treatment Not on file documented as of this encounter Visit Diagnoses Not on filedocumented in this encounter Administered Medications Inactive Administered Medications - up to 3 most recent administrations Medication Order MAR Action Action Date Dose Rate Site fentaNYL citrate (PF) injection intravenous, PRN, Starting on Sat08/11/19 at 1114, Until Sat08/11/19 at 1134, Routine, Anesthesia Intraprocedure Given 08/11/2019 11:20 EDT 25 mcg Given 08/11/2019 11:14 EDT 25 mcg lactated ringers (LR) infusion intravenous, FA IP EQF CONTINUOUS PRN FOR ONE STEP MEDS, Starting on Sat08/11/19 at 1054, Until Sat08/11/19 at 1134, Routine, Anesthesia Intraprocedure New Bag 08/11/2019 10:54 EDT midazolam (PF) (VERSED) injection intravenous, PRN, Starting on Sat08/11/19 at 1054, Until Sat08/11/19 at 1134, Routine, Anesthesia Intraprocedure Given 08/11/2019 10:57 EDT 1 mg Given 08/11/2019 10:54 EDT 1 mg documented in this encounter Care Teams Ready To Wear Department Manager Relationship Specialty Start Date End Date Cary Granados NP [address] [place] [address] PCP - General 05/21/17 documented as of this encounter
--- OUTSIDE RECORDS SUMMARY | 2024-01-17 13:54 | XMS_ITS ---
Author Organization Unknown Address [address] [place] [phone] Phone Care Team Providers Care Business Practices Supervisor Name Role Phone FRANCIS Bateman MD Attending Unavailable [facility] Primary Unavailable Social History Type Status Start Date End Date Code Code Syst em Smoking History Former smoker [id number] SNOMED CT Sex Male Hospital Discharge Instructions [...] Diagnosis Start Date Code Code Sys tem Nonrheumatic aortic (valve) stenosis 11/24/2020 SNOMED-CT Personal Care Team Section Performer Name Performer Role Active Date Inactive Da te
--- OUTSIDE RECORDS SUMMARY | 2024-01-17 13:54 | XMS_ITS | Encounter Summary ---
Author Organization [facility] Address [address] [place] [address] Care Team Providers Care Barman Name Role Phone Leonardo Granadosi Dave SUPERINTENDENT POLICE Primary Care Provider [phone] Reason for Visit * Reason Comments Post-OP Follow Up Encounter Details Date Type Department Care Team (Late st Contact Info) Description 08/05/2019 12:30 EDT Post-op Visit [facility] Ophthalmology - [address] [address] Teagan Wyatt MD [address] [facility], [address] [place] [phone] Pseudophakia (Primary Dx); Cataract of both eyes, unspecified cataract type Social History Tobacco Use Types Packs/Day Years [...] have Coronavirus / COVID-19? No / Unsure 08/07/2019 10:58 EDT documented as of this encounter Ordered Prescriptions Prescription Sig Dispensed Refills Start Date End Da te loteprednol etabonate (LOTEMAX) 0.5 % ophthalmic suspension 1 Drop to Right Eye. 4 x Daily beginning AFTER Surgery. Shake well each time. Dispense 5 ml bottle. No refill. 5 mL 08/05/2019 08/12/2019 ofloxacin (OCUFLOX) 0.3 % ophthalmic solution 1 Drop to Right Eye. 4 x daily beginning 4 days BEFORE surgery. Dispense 1 bottle. No refill. 1 Bottle 08/05/2019 08/18/2019 ketOROLAC (ACULAR) 0.5 % ophthalmic solution 1 Drop to Right Eye. 4 x daily beginning 4 days BEFORE surgery. Dispense 1 bottle. No refill. 1 Bottle 08/05/2019 08/18/2019 brimonidine (ALPHAGAN) 0.2 % ophthalmic solution Place 1 Drop into both eyes 2 times daily. 30 mL 3 08/05/2019 08/15/2020 documented in this encounter Progress Notes * Teagan Wyatt MD - 08/05/2019 1230 EDT Chief Complaint Patient presents with ??? Post-OP Follow Up Comments Pt feels vision is stable. 1 week s/p CE/IOL left eye. No pain HPI :The patient is a 79 y.o. male Right Eye: NL Left Eye: Blurred Vision Visual Aid: Current Rx Age Location: Left eye Pain: 0 - No pain Quality: Blurry Severity: Duration: Days Timing: Lasts: Context: 1 week s/p CE/IOL left eye Modifying factors: Associated Signs & Symptoms: Attestation: ROS Constitutional: NL ENT/Mouth Cardiovascular: High Blood Pressure, High Cholesterol Respiratory: Gastrointestinal: Genitourinary: Musculoskeletal: Integumentary: Neurologic: NL Psychiatric: Endocrine: Diabetes Hematologic: Immunologic: Cushion Maker: Exposures: None Other: Attestation: Allergies include: Amoxicillin Patient Active Problem List Diagnosis ??? Low-tension glaucoma of both eyes, severe stage ??? Combined forms of age-related cataract of left eye ??? Combined forms of age-related cataract of both eyes Outpatient Medications Marked as Taking for the 08/05/19 encounter (Post-op Visit) with Teagan Wyatt MD Medication Sig ??? brimonidine (ALPHAGAN) 0.2 % ophthalmic solution Place 1 Drop into both eyes 2 times daily. ??? [DISCONTINUED] brimonidine (ALPHAGAN) 0.2 % ophthalmic solution Place 1 Drop into both eyes 2 times daily. ??? cyanocobalamin (VITAMIN B-12) 500 mcg tablet [...] 30 Units into the skin daily. ??? [DISCONTINUED] ketOROLAC (ACULAR) 0.5 % ophthalmic solution 1 Drop to Left Eye. 4 x daily beginning 4 days BEFORE surgery. Dispense 1 bottle. No refill. ??? lisinopril (PRINIVIL, ZESTRIL) 10 mg tablet Take 10 mg by mouth daily. ??? loteprednol etabonate (LOTEMAX) 0.5 % ophthalmic suspension 1 Drop to Left Eye. 4 x Daily beginning AFTER Surgery. Shake well each time. Dispense 5 ml bottle. No refill. ??? metFORMIN (GLUCOPHAGE) 500 mg tablet Take 1,000 mg by mouth 2 times daily with breakfast and dinner. ??? NAPROXEN SODIUM (ALEVE ORAL) Take 1 Tab by mouth daily. ??? [DISCONTINUED] ofloxacin (OCUFLOX) 0.3 % ophthalmic solution 1 Drop to Left Eye. 4 x daily beginning 4 days BEFORE surgery. Dispense 1 bottle. No refill. ??? simvastatin (ZOCOR) 20 mg tablet Take 20 mg by mouth daily. ??? SITagliptin (JANUVIA) 50 mg tablet Take 50 mg by mouth daily. ??? tamsulosin (FLOMAX) 0.4 mg capsule Take 0.4 mg by mouth daily. ??? timolol (TIMOPTIC) 0.5 % ophthalmic solution Place 1 Drop into both eyes 2 times daily. ??? travoprost (TRAVATAN Z) 0.004 % ophthalmic solution Place 1 Drop into both eyes every evening. ??? vit A/vit C/vit E/zinc/copper (PRESERVISION AREDS ORAL) Take by mouth. Past Medical History: Diagnosis Date ??? Anemia ??? Arthritis 07/24/19- Left shoulder, All over hands and feet ??? BPH (benign prostatic hyperplasia) 07/24/19- per MD note ??? Cataract ??? Decreased range of motion of neck 07/24/19- Creaks and cracks shoulder neck pain with movement ??? Diabetes mellitus ([facility]) 07/24/19- med controlled, 140-150's usually. ??? Exercise [...] IMPLANT ??? EYE SURGERY ??? HERNIA REPAIR 2004 ??? LASER TRABECULOPLASTY ??? LASIK Bilateral 1999 done in [place] Family History Problem Relation Age of Onset ??? Diabetes Mother ??? Cancer Brother Patient reports that he quit smoking about 48 years ago. His smokeless tobacco use includes chew. He reports that he does not use drugs. Recent HbA1c: No results found for: HGBA1C Base Eye Exam Visual Acuity (Snellen - Linear) Right Left Dist sc 20/40 Dist ph sc 20/30 Tonometry (Applanation, 12:00) Right Left Pressure 11 Neuro/Psych Oriented x3: Yes Mood/Affect: Normal Slit Lamp and Fundus Exam External Exam Right Left External Normal Normal Slit Lamp Exam Right Left Lids/Lashes 1+ Blepharitis 1+ Blepharitis Conjunctiva/Sclera White and quiet White and quiet Cornea Clear Clear Anterior Chamber Deep and quiet Deep and quiet Iris Round and reactive Round and reactive Lens 2+ NS PCIOL Vitreous Clear Clear, PVD Fundus Exam Right Left Disc to rim inferior, small nerve C/D Ratio 0.9 0.5 Macula Normal Flat, central circular RPE loss Vessels Normal Normal Refraction Wearing Rx Sphere Cylinder [place] Right -1.00 +0.50 007 Left -1.25 +1.00 162 Type: SVL Manifest Refraction Sphere Cylinder [place] Dist [place] Right Left -0.25 +0.75 160 20/40 IMPRESSION & PLAN: 1. Low-tension glaucoma of both eyes, severe stage -- referred from optometry (Dr Hayes, OD at [facility]), pt last seen mid-2017 then lost to F/U -- HVF 24-2 OU (03/30) slowly worse OU -- OCT NFL OU (03/30) fluctuating at floor levels OU, mac OCT with perifoveal PED L eye, no AMD -- D/W pt, sequentially worse VFs even with low IOP, at least partially due to cataract and rec CE /goniotomy L then R, may next need trab, see below ON: 0.9 / 0.5, to rim inf, small ON -- likely APD OD Tmax: CCT: 386 / 395 -- s/p LASIK OU Gonio: Open to CBB, 1+ pigment OU (12/25) VF: severe inf > mod sup arc / mod sup > early inf arc (03/30) OCT: 54 / 59 (03/30) Surg: SLT OD (05/26), goniotomy OS (07/28) Gtts: timolol OU BID, brimonidine OU BID, travatan OU QHS Allergy: dorz-timolol (severe stinging, possible allergy) 2. Nuclear sclerosis of both eyes -- moderate, worsening NS OS > OD, PXF OS -- dilates -- note hx LASIK OU -- as above, rec CE to improve VA and clarify view of glaucoma, possible glaucoma surgery afterwards -- pt agrees to this plan, schedule L eye then R eye, CE and goniotomy -- case requests and orders done today, drops with lotemax for IOP risk -- aim plano, emphasized difficulty with post-LASIK calcs and likely need for glasses post-operatively OS: POW 1 PCIOL / iris hooks / goniotomy (07/28/19) -- healing well, MRx today nearly plano -- D/C oflox, ketor, cont lotepred QID x 1 W then BID until POM 1 OD: CE / goniotomy scheduled for 08/11/19 -- consent and IOL calcs done today (used ASCRS post-LASIK calculator) 3. Posterior vitreous detachment, left eye -- [...] vision, worse symptoms, or new/other concerns arise. Teagan Wyatt MD I am scribing for Dr. Wyatt, while he is performing the service. Teagan Wyatt MD documented in this encounter Miscellaneous Notes * Addendum Note - Teagan Wyatt MD - 08/05/2019 1230 EDTAddended by: TEAGAN WYATT on: 08/08/2019 11:46 Modules accepted: Orders, SmartSet documented in this encounter Plan of Treatment Not on file documented as of this encounter Procedures Procedure Name Priority Date/Time Associated Diagnosis Comments IOL MASTER/LENS STAR ONLY Routine 08/05/2019 12:48 EDT Cataract of both eyes, unspecified cataract type documented in this encounter Results * IOL MASTER/LENS STAR ONLY (08/05/2019 12:48 EDT) Narrative [facility] - 08/05/2019 12:48 EDT See interpretation / assessment in main note. Teagan Wyatt MD OPHTH ULTRASOUND [facility] documented in this encounter Visit Diagnoses Diagnosis Pseudophakia- Primary Lens replaced by other means Cataract of both eyes, unspecified cataract type documented in this encounter Discontinued Medications Medication Sig Discontinue Reason Start Date End Da te brimonidine (ALPHAGAN) 0.2 % ophthalmic solution Place 1 Drop into both eyes 2 times daily. Reorder 03/23/2019 08/05/2019 ketOROLAC (ACULAR) 0.5 % ophthalmic solution 1 Drop to Left Eye. 4 x daily beginning 4 days BEFORE surgery. Dispense 1 bottle. No refill. Therapy completed 03/23/2019 08/05/2019 ofloxacin (OCUFLOX) 0.3 % ophthalmic solution 1 Drop to Left Eye. 4 x daily beginning 4 days BEFORE surgery. Dispense 1 bottle. No refill. Therapy completed 03/23/2019 08/05/2019 documented as of this encounter Eye Exam Visual Acuity (Snellen - Linear) Right eye Left eye Dist sc 20/40 Dist ph sc 20/30 Tonometry (Applanation, 12:00) Right eye Left eye Pressure 11 Neuro/Psych Oriented x3: Yes Mood/Affect: Normal External Exam Right eye Left eye External Normal Normal Slit Lamp Exam Right eye Left eye Lids/Lashes 1+ Blepharitis 1+ Blepharitis Conjunctiva/Sclera White and quiet White and jagdish et Cornea Clear Clear Anterior Chamber Deep and quiet Deep and quiet Iris Round and reactive Round and mai ctive Lens 2+ NS PCIOL Vitreous Clear Clear, PVD Fundus Exam Right eye Left eye Disc to rim inferior, small nerve C/D Ratio 0.9 0.5 Macula Normal Flat, central ci rcular RPE loss Vessels Normal Normal Wearing Rx Sphere Cylinder [place] Right eye -1.00 +0.50 007 Left eye -1.25 +1.00 162 Type: SVL Manifest Refraction Sphere Cylinder [place] Dist VA Right eye Left eye -0.25 +0.75 160 20/40 Care Teams Barman Relationship Specialty Start Date End Date Cary Granados NP [address] [place] [address] PCP - General 05/21/17 documented as of this encounter
--- OUTSIDE RECORDS SUMMARY | 2024-01-17 13:54 | XMS_ITS | Encounter Summary ---
Author Organization [facility] Address [address] [place] [address] Care Team Providers Care Quality Control Auditor Name Role Phone Darwin Cary Dave GLOST KILN PLACER Primary Care Provider Reason for Visit * Reason Comments Post-OP Follow Up Encounter Details Date Type Department Care Team (Late st Contact Info) Description 08/12/2019 9:15 EDT Post-op Visit [facility] Ophthalmology - [address] [address] Caleb Cabello MD [address] [facility], [address] 5 [place] [phone] Pseudophakia (Primary Dx); Low-tension glaucoma of both eyes, severe stage Social History Tobacco Use Types Packs/Day Years [...] 9:10 EDT documented as of this encounter Ordered Prescriptions Prescription Sig Dispensed Refills Start Date End Da te loteprednol etabonate (LOTEMAX) 0.5 % ophthalmic suspension 1 drop in the RIGHT eye 4x daily. 1 drop in the LEFT eye 2x daily. Shake well each time. 1 Bottle 1 08/12/2019 09/07/2019 documented in this encounter Progress Notes * Caleb Cabello MD - 08/12/2019 0915 EDT Chief Complaint Patient presents with ??? Post-OP Follow Up Comments Patient here 1 day s/p goniotomy right eye. Slept okay. Mild pain. Took two aleve last night. Irritation and pain is better today. [facility] saw better with right eye this morning. He says he wiped it cleanthis morning. Drops: kevyn 2/2, brim 2/2, ariane hs/hs, ket -4, oflox -/4, lotepred -/4 HPI :The patient is a 79 y.o. male Right Eye: Blurred Vision Left Eye: Blurred Vision Visual Aid: Current Rx Age Location: Right eye Pain: 0 - No pain Quality: Blurry Severity: Moderate Duration: Days Timing: Lasts: Context: Patient here 1 day s/p goniotomy right eye. Slept okay. Mild pain. Took two aleve last night. Irritation and pain is better today. VA saw better with right eye this morning. He says he wipedit clean this morning. Drops: kevyn 2/2, brim 2/2, ket -4, oflox -/4, lotepred -/4 Modifying factors: Drops: kevyn 2/2, brim 2/2, ariane hs/hs, ket -4, oflox -/4, lotepred -/4 Associated Signs & Symptoms: s/p goniotomy right eye Attestation: ROS Constitutional: NL ENT/Mouth Cardiovascular: High Blood Pressure, High Cholesterol Respiratory: Gastrointestinal: Genitourinary: Musculoskeletal: Integumentary: Neurologic: Psychiatric: Endocrine: Diabetes Hematologic: Immunologic: Drug Allergy Metal Burnisher: Exposures: None Other: Attestation: Allergies include: Amoxicillin Patient Active Problem List Diagnosis ??? Low-tension glaucoma of both eyes, severe stage ??? Pseudophakia Outpatient Medications Marked as Taking for the 08/12/19 encounter (Post-op Visit) with Caleb Cabello MD Medication Sig [...] 30 Units into the skin daily. ??? ketOROLAC (ACULAR) 0.5 % ophthalmic solution 1 Drop to Right Eye. 4 x daily beginning 4 days BEFORE surgery. Dispense 1 bottle. No refill. ??? lisinopril (PRINIVIL, ZESTRIL) 10 mg tablet Take 10 mg by mouth daily. ??? [DISCONTINUED] loteprednol etabonate (LOTEMAX) 0.5 % ophthalmic suspension 1 Drop to Right Eye.4 x Daily beginning AFTER Surgery. Shake well each time. Dispense 5 ml bottle. No refill. ??? [DISCONTINUED] loteprednol etabonate (LOTEMAX) 0.5 % ophthalmic suspension 1 Drop to Left Eye. 4 x Daily beginning AFTER Surgery. Shake well each time. Dispense 5 ml bottle. No refill. ??? metFORMIN (GLUCOPHAGE) 500 mg tablet Take 1,000 mg by mouth 2 times daily with breakfast and dinner. ??? NAPROXEN SODIUM (ALEVE ORAL) Take 1 Tab by mouth daily. ??? ofloxacin (OCUFLOX) 0.3 % ophthalmic solution 1 [...] neck pain with movement ??? Diabetes mellitus (HCC-CMS) 07/24/19- med controlled, 140-150's usually. ??? Exercise [...] TRABECULOPLASTY ??? LASIK Bilateral 1999 done in [place] Family History Problem Relation Age of Onset ??? Diabetes Mother ??? Cancer Brother Patient reports that he quit smoking about 48 years ago. His smokeless tobacco use includes chew. He reports that he does not use drugs. Recent HbA1c: No results found for: HGBA1C Base Eye Exam Visual Acuity (Snellen - Linear) Right Left Dist sc 20/60 +2 20/50 Dist ph sc 20/25 NI Tonometry (Applanation, 9:28) Right Left Pressure ~1 5 Tonometry #2 (Applanation, 9:59) Right Left Pressure 2 7 Tonometry Lexx Rees double checked right eye Neuro/Psych Oriented x3: Yes Mood/Affect: Normal Dilation Right eye: Phenylephrine 2.5%, Tropicamide 1% @ 9:59 Slit Lamp and Fundus Exam External Exam Right Left External Normal Normal Slit Lamp Exam Right Left Lids/Lashes 1+ Blepharitis 1+ Blepharitis Conjunctiva/Sclera 1+ injection White and quiet Cornea Clear Clear Anterior Chamber Deep, 2+ RBCs / 1+ WBCs Deep and quiet Iris Round and reactive Round and reactive Lens PCIOL PCIOL Vitreous Clear Clear, PVD Fundus Exam Right Left Disc to rim inferior, small nerve C/D Ratio 0.9 0.5 Macula Normal Flat, central circular RPE loss Vessels Normal Normal Periphery Normal IMPRESSION & PLAN: 1. Low-tension glaucoma of both eyes, severe stage -- referred from optometry (Dr Hayes, OD at [facility], [facility]), pt last seen mid-2017 then [...] of glaucoma, possible glaucoma surgery afterwards -- schedule L eye then R eye, CE and goniotomy -- case requests and orders done today, drops with lotemax for IOP risk -- aim plano, emphasized difficulty with post-LASIK calcs and antonio lopez need for glasses post-operatively OD: POD 1 PCIOL / goniotomy (08/11/19) -- hypotony with deep AC, no choroidals, possibly cyclodialysis cleft -- begin atropine OD BID, lotepred / oflox / ketor QID, hold glaucoma rx OD for now OS: POW 2 PCIOL / iris hooks / goniotomy (07/28/19) -- healing well, MRx nearly plano, good IOP -- cont lotepred OS BID, cont glaucoma rx above Wrote out and reviewed all drop instructions -- F/U early next week: VA, IOP OU 3. Posterior vitreous detachment, left eye -- [...] documented as of this encounter Visit Diagnoses Diagnosis Pseudophakia- Primary Lens replaced by other means Low-tension glaucoma of both eyes, severe stage Low tension open-angle glaucoma documented in this encounter Discontinued Medications Medication Sig Discontinue Reason Start Date End Da te loteprednol etabonate (LOTEMAX) 0.5 % ophthalmic suspension 1 Drop to Right Eye. 4 x Daily beginning AFTER Surgery. Shake well each time. Dispense 5 ml bottle. No refill. Alternate therapy 08/05/2019 08/12/2019 loteprednol etabonate (LOTEMAX) 0.5 % ophthalmic suspension 1 Drop to Left Eye. 4 x Daily beginning AFTER Surgery. Shake well each time. Dispense 5 ml bottle. No refill. Alternate therapy 03/23/2019 08/12/2019 documented as of this encounter Eye Exam Visual Acuity (Snellen - Linear) Right eye Left eye Dist sc 20/60 +2 20/50 Dist ph sc 20/25 NI Tonometry #1 (Applanation, 9:28) Right eye Left eye Pressure ~1 5 Tonometry #2 (Applanation, 9:59) Right eye Left eye Pressure 2 7 Tonometry Comments Cabrera double checked right eye Neuro/Psych Oriented x3: Yes Mood/Affect: Normal Dilation Right eye: Phenylephrine 2.5 %, Tropicamide 1% @ 9:59 External Exam Right eye Left eye External Normal Normal Slit Lamp Exam Right eye Left eye Lids/Lashes 1+ Blepharitis 1+ Blepharitis Conjunctiva/Sclera 1+ injection White and jagdish et Cornea Clear Clear Anterior Chamber Deep, 2+ RBCs / 1+ WBCs Deep an d quiet Iris Round and reactive Round and mai ctive Lens PCIOL PCIOL Vitreous Clear Clear, PVD Fundus Exam Right eye Left eye Disc to rim inferior, small nerve C/D Ratio 0.9 0.5 Macula Normal Flat, central ci rcular RPE loss Vessels Normal Normal Periphery Normal Care Teams Quality Control Auditor Relationship Specialty Start Date End Date Cray Granados, GLOST KILN PLACER [address] [place] [address] PCP - General 05/21/17 documented as of this encounter
--- OUTSIDE RECORDS SUMMARY | 2024-01-17 13:54 | XMS_ITS | Referral Summary ---
Author Organization [facility] Address [address] [place] [address] Care Team Providers Care Operator Technician Name Role Phone Cary Granados MANAGER STRATEGIC MARKETING Primary Care Provider [phone] Encounters Date Type Department Care Team Description 01/09/2024 Lab Requisition [facility] Pathology & Laboratory Medicine - [address] [address] Outr Resulting Lab, Provider 12/25/2023 Telephone [facility] Ophthalmology [facility] [address] [place] [address] Caleb Cabello MD Medications Refill 12/10/2023 Refill [facility] Ophthalmology - [address] [address] Derek Alonzo MD Medications Refill from Last 3 Months Allergies Active Allergy Reactions Criticality Noted Date Comments Amoxicillin Swelling 05/21/2017 Swelling of eyes and mouth Medications Medication Sig Dispensed Refills Start Date End Date Status metFORMIN (GLUCOPHAGE) 500 mg tablet Take 2 Tablets by mouth 2 times daily with breakfast and dinner. Active simvastatin (ZOCOR) 20 mg tablet Take 1 Tablet by mouth daily. Active lisinopril (PRINIVIL, ZESTRIL) 10 mg tablet Take 1 Tablet by mouth daily. Active NAPROXEN SODIUM (ALEVE ORAL) Take 1 Tab by mouth daily. Active INSULIN DETEMIR (LEVEMIR FLEXPEN SUBQ) Inject 30 Units into the skin daily. Active ferrous gluconate (FERGON) 324 mg (38 mg iron) tablet Take 1 Tablet by mouth 2 times daily with breakfast and dinner. Active gabapentin (NEURONTIN) 300 mg capsule Take 1 Capsule by mouth 3 times daily. Active tamsulosin (FLOMAX) 0.4 mg capsule Take 1 Capsule by mouth daily. Active vit A/vit C/vit E/zinc/copper (PRESERVISION AREDS ORAL) Take by mouth. Active cyanocobalamin (VITAMIN B-12) 500 mcg tablet Take 1 Tablet by mouth daily. Active SITagliptin (JANUVIA) 50 mg tablet Take 50 mg by mouth daily. Active famotidine (PEPCID) 20 mg tablet Take 1 Tablet by mouth 2 times daily. Active travoprost (TRAVATAN Z) 0.004 % ophthalmic solution INSTILL 1 DROP INTO BOTH EYES IN THE EVENING 7.5 mL 3 01/16/2023 Active brinzolamide (AZOPT) 1 % ophthalmic suspension INSTILL 1 DROP INTO BOTH EYES TWICE DAILY 30 mL 3 05/24/2023 Active brimonidine (ALPHAGAN) 0.2 % ophthalmic solution Place 1 Drop into both eyes 2 times daily. 30 mL 3 08/07/2023 Active timolol (TIMOPTIC) 0.5 % ophthalmic solution INSTILL 1 DROP INTO BOTH EYES TWICE DAILY 30 mL 10/08/2023 Active Active Problems Problem Noted Date Diagnosed Date Pseudophakia 08/12/2019 Low-tension glaucoma of both eyes, severe stage 10/10/2017 Resolved Problems Problem Noted Date Diagnosed Date Resolved Date Combined forms of age-relate d cataract of both eyes 04/17/2019 08/12/2019 Overview: Added automatically from request for surgery [id number] Combined forms of age-relate d cataract of left eye 2019 08/12/2019 Overview: Added automatically from request for surgery [id number] Social History Tobacco Use Types Packs/Day Years Used Date Smoking Tobacco: Former Smokeless Tobacco: Current Chew Interpersonal Safety Answer Date Record ed Physically Hurt Never 10/11/2019 Verbally Threaten Not on file 10/11/2019 Sex and Gender Information Value Date Recorded Sex Assigned at Not on file Gender Identity Male 05/20/2019 12:48 EDT Sexual Orientation Not on file Last Filed Vital Signs Vital Sign Reading Time Taken Comments Blood Pressure 166/91 08/11/2019 1145 EDT Pulse - - Temperature 36.6 ??C (97.9 ??F) 08/11/2019 1145 EDT Respiratory Rate 16 08/11/2019 1145 EDT Oxygen Saturation 98% 08/11/2019 1145 EDT Inhaled Oxygen Concentration - - Weight 89.3 kg (196 lb 13.9 oz) 08/11/2019 0934 EDT Height 181.6 cm (5' 11.5) 07/24/2019 1358 EDT Body Mass Index 27.08 07/24/2019 1358 EDT Plan of Treatment Not on file Medical Devices Implanted Type Area Senior [employer] Soa Developer Device Identifier Shelf Expiration Date Model / Serial / Lot Lens Intraocular Monfocl Ant Bicnvx Opt Foldable +18.5d Wavefront [id number] - [id number] - [id number] Implanted:Qty: 1 on 07/28/2019 by Caleb Cabello MD at [facility] Lens Left: Eye [employer] [id number] 10/09/2023 [id number] 18.5 / [id number] / Lens Intraocular Monfocl Ant Bicnvx Opt Foldable +20.0d Wavefront [id number] - [id number] - [id number] Implanted:Qty: 1 on 08/11/2019 by Caleb Cabello MD at [facility] Lens Right: Eye [employer] [id number] 10/09/2023 [id number]-15 .0 / [id number] / Procedures Procedure Name Priority Date/Time Associated Diagnosis Comments PSA TOTAL, DIAGNOSTIC Routine 01/09/2024 10:50 EDT from Last 3 Months Results * PSA TOTAL, DIAGNOSTIC (01/09/2024 10:50 EDT) PSA 2.6 <=6.5 ng/mL 01/09/2024 22:25 EDT [facility] Blood VENOUS BLOOD / Unknown 01/09/2024 10:50 EDT 01/09/2024 21:16 EDT Narrative [facility] - 01/09/2024 22:25 EDT NOTE: Serum PSA concentration should not be interpreted as absolute evidence for the presence or absence of malignant disease. Assayed on Siemens [employer] Centaur XPT using chemiluminescent technology.??Values obtained by using different assay methods cannot be used interchangeably. Provider Outr Resulting Lab CHEMISTRY & BLOOD GAS ORDERABLES [facility] [address] [place] [address] from Last 3 Months Advance Directives For more information, please contact: [phone] * Full Code (Latest Code Status on File) Date Activated Date Inactivated Comments 08/11/2019 9:30 08/11/2019 14:26 Question Answer Comments Reason for decision includes: Full code consistent with overall plan of care Who participated in the discussion? Not Discusse d * Full Code Date Activated Date Inactivated Comments 07/28/2019 9:28 07/28/2019 14:08 Question Answer Comments Reason for decision includes: Full code consistent with overall plan of care Who participated in the discussion? Not Discusse d Care Teams Operator Technician Relationship Specialty Start Date End Date Cary Granados, MANAGER STRATEGIC MARKETING [address] [place] [address] PCP - General 05/21/17
--- OUTSIDE RECORDS SUMMARY | 2024-01-17 13:54 | XMS_ITS | Encounter Summary ---
Author Organization [facility] Address [address] [place] [address] Care Team Providers Care Remarketing Manager Name Role Phone Cary Granados SHIRRING MACHINE OPERATOR Primary Care Provider [phone] Encounter Details Date Type Department Care Team (Late st Contact Info) Description 11/07/2020 Lab Requisition [facility] Pathology & Laboratory Medicine - [address] [id number] Outr Resulting Lab, Provider Social History Tobacco Use Types Packs/Day Years Used Date Smoking Tobacco: Former Smokeless Tobacco: Current Chew Interpersonal Safety Answer Date Record ed Physically Hurt Never 10/11/2019 Verbally Threaten Not on file 10/11/2019 Sex and Gender Information Value Date Recorded Sex Assigned at Not on file Gender Identity Male 05/20/2019 12:48 EDT Sexual Orientation Not on file documented as of this encounter Plan of Treatment Not on file documented as of this encounter Procedures Procedure Name Priority Date/Time Associated Diagnosis Comments PSA TOTAL, DIAGNOSTIC Routine 11/07/2020 9:15 EDT documented in this encounter Results * PSA TOTAL, DIAGNOSTIC (11/07/2020 9:15 EDT) PSA 3.0 0.0 - 6.5 ng/mL 11/07/2020 22:37 EDT [facility] Blood VENOUS BLOOD / Unknown 11/07/2020 9:15 EDT 11/07/2020 20:47 EDT Narrative [facility] - 11/07/2020 22:37 EDT NOTE: Serum PSA concentration should not be interpreted as absolute evidence for the presence or absence of malignant disease. Assayed on Siemens [employer]VIA Centaur XPT using chemiluminescent technology.??Values obtained by using different assay methods cannot be used interchangeably. Provider Outr Resulting Lab CHEMISTRY & BLOOD GAS ORDERABLES [facility] [address] [place] [address] documented in this encounter Visit Diagnoses Not on filedocumented in this encounter Care Teams Remarketing Manager Relationship Specialty Start Date End Date Cary Granados NP [address] [place], [place] [address] PCP - General 05/21/17 documented as of this encounter
--- OUTSIDE RECORDS SUMMARY | 2024-01-17 13:54 | XMS_ITS | Encounter Summary ---
Author Organization [facility] Address [address] [place] [address] Care Team Providers Care Equipment Oiler Name Role Phone DarwinCary Dave PRESIDENTIAL SUPPORT SPECIALIST Primary Care Provider [phone] Reason for Visit * Reason Onset Date Comments Other Medications Refill 06/16/2020 Encounter Details Date Type Department Care Team (Late st Contact Info) Description 06/16/2020 Refill [facility] Ophthalmology - [address] [id number] Caleb Cabello MD [address] [facility], [address] [place] [phone] Other; Medications Refill Social History Tobacco Use Types [...] Drop into the left eye every evening. 7.5 mL 06/16/2020 08/17/2020 documented in this encounter Miscellaneous Notes * Telephone Encounter - Chana Campos MA - 06/16/2020 1347 EDT Doctor: Caleb Cabello MD Requested Medication(s): travatan Last appointment date: 09.07.19 Last appointment note regarding medication:travatan OS QHS Next appointment date: 07.14.20 * Telephone Encounter - Terry Cisneros - 06/16/2020 1342 EDT Patient's PCP office calls to check status of refill request. Advised that it was in process and that patient has 07/14/20 appt scheduled. Also advised that pateint should keep this appt to avoid Rx becoming d/c. They said they would relay this to the patient. documented in this encounter Plan of Treatment Not on file documented as of this encounter Visit Diagnoses Not on filedocumented in this encounter Discontinued Medications Medication Sig Discontinue Reason Start Date End Da te travoprost (TRAVATAN Z) 0.004 % ophthalmic solution Place 1 Drop into both eyes every evening. 06/09/2019 06/16/2020 documented as of this encounter Care Teams Equipment Oiler Relationship Specialty Start Date End Date Cary Granados, OSCAR [address] [place] [place] [address] PCP - General 05/21/17 documented as of this encounter
--- OUTSIDE RECORDS SUMMARY | 2024-01-17 13:54 | XMS_ITS | Encounter Summary ---
Author Organization [facility] Address [address] [place] [address] Care Team Providers Care Plugging Machine Operator Name Role Phone Leonardo Granadosi Dave CREDIT REPRESENTATIVE Primary Care Provider Encounter Details Date Type Department Care Team (Late st Contact Info) Description 07/16/2023 Lab Requisition [facility] Pathology & Laboratory Medicine - [address] [phone] Outr Resulting Lab, Provider Social History Tobacco [...] Associated Diagnosis Comments PSA TOTAL, DIAGNOSTIC Routine 07/16/2023 9:30 EDT documented in this encounter Results * PSA TOTAL, DIAGNOSTIC (07/16/2023 9:30 EDT) PSA 2.5 <=6.5 ng/mL 07/17/2023 14:01 EDT [facility] Blood VENOUS BLOOD / Unknown 07/16/2023 9:30 EDT 07/16/2023 22:11 EDT Narrative [facility] - 07/17/2023 14:01 EDT NOTE: Serum PSA concentration should not be interpreted as absolute evidence for the presence or absence of malignant disease. Assayed on Siemens ADVIA Centaur XPT using chemiluminescent technology.??Values obtained by using different assay methods cannot be used interchangeably. Provider Outr Resulting Lab CHEMISTRY & BLOOD GAS ORDERABLES [facility] [address] [place] [address] documented in this encounter Visit Diagnoses Not on filedocumented in this encounter Care Teams Plugging Machine Operator Relationship Specialty Start Date End Date Cary Granados, OSCAR [address] [place] [address] PCP - General 05/21/17 documented as of this encounter
--- OUTSIDE RECORDS SUMMARY | 2024-01-17 13:54 | XMS_ITS | Encounter Summary ---
Author Organization [facility] Address [address] [place] [address] Care Team Providers Care Grinding Machine Operator Name Role Phone Cary Granados TELEPHONE ORDER CLERK Primary Care Provider [phone] Reason for Visit * Reason Comments Other Encounter Details Date Type Department Care Team (Late st Contact Info) Description 04/29/2020 Refill [facility] Ophthalmology - [address] [phone] Caleb Cabello MD [address] [facility], [address] [place] [address] Other Social History Tobacco Use [...] 0.5 % ophthalmic solution INSTILL 1 DROP IN EACH EYE TWICE DAILY 30 mL 05/02/2020 06/23/2020 documented in this encounter Miscellaneous Notes * Telephone Encounter - Pepe Mcclellan RN - 05/02/2020 9894 EST Doctor: Caleb Cabello MD Requested Medication(s): timolol Last appointment date: 09/07/2019 Last appointment note regarding medication:'Using kevyn BID, ' Next appointment date: Overdue. Pepe Barton RN 05/02/2020 7:37 documented in this encounter Plan of Treatment Not on file documented as of this encounter Visit Diagnoses Not on filedocumented in this encounter Discontinued Medications Medication Sig Discontinue Reason Start Date End Da te timolol (TIMOPTIC) 0.5 % ophthalmic solution Place 1 Drop into both eyes 2 times daily. 03/23/2019 05/02/2020 documented as of this encounter Care Teams Grinding Machine Operator Relationship Specialty Start Date End Date Cary Granados, OSCAR [address] [place] [address] PCP - General 05/21/17 documented as of this encounter
--- OUTSIDE RECORDS SUMMARY | 2024-01-17 13:54 | XMS_ITS | Encounter Summary ---
Author Organization [facility] Address [address] [place] [address] Care Team Providers Care Shipping Support Clerk Name Role Phone Cary Granados COLLISION ESTIMATOR Primary Care Provider [phone] Reason for Visit * Reason Comments New Med Request Encounter Details Date Type Department Care Team (Late st Contact Info) Description 08/07/2023 Refill [facility] Ophthalmology - [address] [phone] Caleb Cabello MD [address] [facility], [address] [place] [phone] New Med Request Social History Tobacco Use [...] 2 times daily. 30 mL 3 08/07/2023 documented in this encounter Plan of Treatment Not on file documented as of this encounter Visit Diagnoses Not on filedocumented in this encounter Discontinued Medications Medication Sig Discontinue Reason Start Date End Da te brimonidine (ALPHAGAN) 0.2 % ophthalmic solution INSTILL 1 DROP INTO BOTH EYES TWICE DAILY 05/13/2023 08/07/2023 documented as of this encounter Care Teams Shipping Support Clerk Relationship Specialty Start Date End Date Cary Granados, COLLISION ESTIMATOR [address] [place] [address] PCP - General 05/21/17 documented as of this encounter
--- OUTSIDE RECORDS SUMMARY | 2024-01-17 13:54 | XMS_ITS | Encounter Summary ---
Author Organization [facility] Address [address] [place] [address] Care Team Providers Care Angle Furnaceman Name Role Phone DarwinCary Dave STAFF TRAINER Primary Care Provider [phone] Reason for Visit * Reason Comments Other Encounter Details Date Type Department Care Team (Late st Contact Info) Description 08/14/2020 Refill [facility] Ophthalmology - [address] [phone] Caleb Cabello MD 111 [facility], [address] [place] [address] Other Social History Tobacco Use [...] BOTH EYES TWICE DAILY 30 mL 3 08/15/2020 03/29/2022 documented in this encounter Miscellaneous Notes * Telephone Encounter - Triny Sterling - 08/15/2020 1129 EDT IMPRESSION & PLAN: 1. Low-tension glaucoma of both eyes, severe stage -- referred from optometry (Dr Hayes, OD at [facility]), pt last seen mid-2018 then lost to F/U -- IOP very [...] IOP, HVF 24-2 FAST OU, paremyd OU ?? ON: 0.9 / 0.5, to rim inf, [...] QHS Allergy: dorz-timolol (severe stinging, possible allergy) ?? Visit of 07/14/20. To return around Jan 2021 for testing and DFE. documented in this encounter Plan of Treatment Not on file documented as of this encounter Visit Diagnoses Not on filedocumented in this encounter Discontinued Medications Medication Sig Discontinue Reason Start Date End Da te brimonidine (ALPHAGAN) 0.2 % ophthalmic solution Place 1 Drop into both eyes 2 times daily. 08/05/2019 08/15/2020 documented as of this encounter Care Teams Angle Furnaceman Relationship Specialty Start Date End Date Cary Granados NP [address] [place] [address] PCP - General 05/21/17 documented as of this encounter
--- OUTSIDE RECORDS SUMMARY | 2024-01-17 13:54 | XMS_ITS | Encounter Summary ---
Author Organization [facility] Address [address] [place] [address] Care Team Providers Care Assistant Front Office Manager Name Role Phone Darwin Cary Dave NUCLEAR MEDICINE SPECIALIST Primary Care Provider [phone] Reason for Visit * Reason Comments Medications Refill Encounter Details Date Type Department Care Team (Late st Contact Info) Description 01/16/2023 Refill [facility] Ophthalmology - [address] [phone] Caleb Cabello MD 111 [facility], [address] [place] [address] Medications Refill Social History Tobacco [...] IN THE EVENING 7.5 mL 3 01/16/2023 documented in this encounter Plan of Treatment Not on file documented as of this encounter Visit Diagnoses Not on filedocumented in this encounter Discontinued Medications Medication Sig Discontinue Reason Start Date End Da te travoprost (TRAVATAN Z) 0.004 % ophthalmic solution INSTILL 1 DROP INTO BOTH EYES IN THE EVENING 01/05/2022 01/16/2023 documented as of this encounter Care Teams Assistant Front Office Manager Relationship Specialty Start Date End Date Cary Granados, NUCLEAR MEDICINE SPECIALIST [address] [place] [address] PCP - General 05/21/17 documented as of this encounter
--- OUTSIDE RECORDS SUMMARY | 2024-01-17 13:54 | XMS_ITS | Encounter Summary ---
Author Organization [facility] Address [address] [place] [address] Care Team Providers Care Marketing Administrative Assistant Name Role Phone Cary Granados SUPERVISOR BACKFILLING Primary Care Provider [phone] Encounter Details Date Type Department Care Team (Latest Contact Info) Description 08/11/2019 Travel Social History Tobacco Use Types Packs/Day Years [...] 9:10 EDT documented as of this encounter Plan of Treatment Not on file documented as of this encounter Visit Diagnoses Not on filedocumented in this encounter Care Teams Marketing Administrative Assistant Relationship Specialty Start Date End Date Cary Granados, SUPERVISOR BACKFILLING [address] [place], [place] [address] PCP - General 05/21/17 documented as of this encounter
--- OUTSIDE RECORDS SUMMARY | 2024-01-17 13:54 | XMS_ITS | Encounter Summary ---
Author Organization [facility] Address [address] [place] [address] Care Team Providers Care House Builder Name Role Phone SelvinharshalCary ordaz Dave ROCKET SCIENTIST Primary Care Provider [phone] Reason for Visit * Reason Comments Other Encounter Details Date Type Department Care Team (Late st Contact Info) Description 08/17/2020 Refill [facility] Ophthalmology - [address] [phone] Caleb Cabello MD 111 [facility], [address] [place] [address] Other Social History Tobacco Use [...] both eyes every evening. 12.5 mL 3 08/17/2020 10/30/2021 documented in this encounter Miscellaneous Notes * Telephone Encounter - Pepe Mcclellan RN - 08/17/2020 0808 EDT Doctor: Caleb Cabello MD Requested Medication(s): Gonzalez Last appointment date: 07/14/2020 Last appointment note regarding medication:'travatan OU QHS' Next appointment date: January 2021 Pepe Barton RN 08/17/2020 8:09 documented in this encounter Plan of Treatment Not on file documented as of this encounter Visit Diagnoses Not on filedocumented in this encounter Discontinued Medications Medication Sig Discontinue Reason Start Date End Da te travoprost (TRAVATAN Z) 0.004 % ophthalmic solution Place 1 Drop into the left eye every evening. 06/16/2020 08/17/2020 documented as of this encounter Care Teams House Builder Relationship Specialty Start Date End Date Cary Granados, OSCAR [address] [place] [address] PCP - General 05/21/17 documented as of this encounter
--- OUTSIDE RECORDS SUMMARY | 2024-01-17 13:54 | XMS_ITS | Encounter Summary ---
Author Organization [facility] Address [address] [place] [address] Care Team Providers Care Ccu Nurse Name Role Phone SelvinharshalCary ordaz Dave MACHINE CLOTH TRIMMER Primary Care Provider [phone] Reason for Visit * Reason Comments Other Encounter Details Date Type Department Care Team (Late st Contact Info) Description 06/22/2020 Refill [facility] Ophthalmology - [address] [phone] Caleb Cabello MD 111 [facility], Level [address] [place] [address] Other Social History Tobacco Use [...] into the left eye 2 times daily. 20 mL 3 06/23/2020 08/27/2022 documented in this encounter Miscellaneous Notes * Telephone Encounter - Pepe Mcclellan RN - 06/23/2020 0723 EDT Doctor: Caleb Cabello MD Requested Medication(s): Timolol Last appointment date: 09/07/19 Last appointment note regarding medication:'timolol OS BID,' Next appointment date: 07/14/20 Pepe Barton RN 06/23/2020 7:24 documented in this encounter Plan of Treatment Not on file documented as of this encounter Visit Diagnoses Not on filedocumented in this encounter Discontinued Medications Medication Sig Discontinue Reason Start Date End Da te timolol (TIMOPTIC) 0.5 % ophthalmic solution INSTILL 1 DROP IN EACH EYE TWICE DAILY 05/02/2020 06/23/2020 documented as of this encounter Care Teams Ccu Nurse Relationship Specialty Start Date End Date Cary Granados, OSCAR [address] [place] [address] PCP - General 05/21/17 documented as of this encounter
--- OUTSIDE RECORDS SUMMARY | 2024-01-17 13:54 | XMS_ITS | Encounter Summary ---
Author Organization [facility] Address [address] [place] [address] Care Team Providers Care Field Trainer Name Role Phone Cary Granados TURBINE ATTENDANT Primary Care Provider [phone] Reason for Visit * Reason Comments Medications Refill Encounter Details Date Type Department Care Team (Late st Contact Info) Description 12/10/2023 Refill [facility] Ophthalmology - [address] [phone] Derek Alonzo MD 111 [facility], Level [address] [place] [phone] Medications Refill Social History Tobacco Use Types [...] on filedocumented in this encounter Care Teams Field Trainer Relationship Specialty Start Date End Date Cary Granados, TURBINE ATTENDANT [address] [place], [place] [id number] PCP - General 05/21/17 documented as of this encounter
--- OUTSIDE RECORDS SUMMARY | 2024-01-17 13:54 | XMS_ITS | Encounter Summary ---
Author Organization [facility] Address [address] [place] [address] Care Team Providers Care Paving Foreman Name Role Phone Darwin Cary Dave LABORER FRYER FARM Primary Care Provider [phone] Reason for Visit * Reason Onset Date Comments Medications Refill 12/25/2023 Encounter Details Date Type Department Care Team (Late st Contact Info) Description 12/25/2023 Telephone [facility] Ophthalmology - [phone] [place] [address] Caleb Cabello MD 111 [facility] 5 [place] [address] Medications Refill Social History Tobacco [...] Telephone Encounter - Pepe Mcclellan RN - 12/25/2023 1651 EDT Patient overdue and needs appointment. Pepe Mcclellan RN 12/25/2023 16:51 * Telephone Encounter - Socorro Palencia - 12/25/2023 1645 EDT Pt and daughter called Medication Refill Medication(s) Requested: Azopt, Timolol Ask patient how they are currently taking medication? One drop in both eyes twice daily for each Strength of medication per pt? Azopt1%, Timolol, 0.05% Pharmacy: [facility] [place] Is patient out of medication? Yes 30 day supply/ 90 day supply: 90 Follow up appointment: nothing scheduled, last seen in October Please remind the patient that it can take 24-48 hours for the med to be refilled, and to call the pharmacy to make sure the refill is available before driving there. documented in this encounter Plan of Treatment Not on file documented as of this encounter Visit Diagnoses Not on filedocumented in this encounter Care Teams Paving Foreman Relationship Specialty Start Date End Date Cary Granados, LABORER [employer] [address] [place] [address] PCP - General 05/21/17 documented as of this encounter
--- OUTSIDE RECORDS SUMMARY | 2024-01-17 13:54 | XMS_ITS | Encounter Summary ---
Author Organization [facility] Address [address] [place] [address] Care Team Providers Care Pinner Printed Circuit Boards Name Role Phone Darwin Cary Dave WELDING INSPECTOR Primary Care Provider [phone] Reason for Visit * Reason Comments Post-OP Follow Up Encounter Details Date Type Department Care Team (Late st Contact Info) Description 07/29/2019 12:00 EDT Post-op Visit [facility] Ophthalmology - [address] [phone] Caleb Cabello MD 111 [facility], [address] [place] [phone] Pseudophakia (Primary Dx) Social History Tobacco Use Types Packs/Day Years [...] 8:44 EDT documented as of this encounter Progress Notes * Caleb Cabello MD - 07/29/2019 1200 EDT Chief Complaint Patient presents with ??? Post-OP Follow Up Comments Patient here s/p PCIOL left eye. Slept okay. No pain. VA bright after taking off patch, blurry. No floaters. Couple flashes last night while eyes were closed. Drops: ket -/4, oflaxacin -/4, timolol 2/2, brim 2/2, travatan z hs/hs HPI :The patient is a 79 y.o. male Right Eye: NL Left Eye: Blurred Vision Visual Aid: Current Rx Age Location: Left eye Pain: 0 - No pain Quality: Blurry Severity: Mild Duration: Days Timing: Lasts: Context: Patient here s/p PCIOL left eye. Slept okay. No pain. VA bright after taking off patch, blurry. No floaters. Couple flashes last night while eyes were closed. Modifying factors: Drops: ket -/4, oflaxacin -/4, timolol 2/2, brim 2/2, travatan z hs/hs Associated Signs & Symptoms: Attestation: ROS Constitutional: NL ENT/Mouth Cardiovascular: High Blood Pressure, High Cholesterol Respiratory: Gastrointestinal: Genitourinary: Musculoskeletal: Integumentary: Neurologic: NL Psychiatric: Endocrine: Diabetes Hematologic: Immunologic: Lead Painter: Exposures: None Other: Attestation: Allergies include: Amoxicillin Patient Active Problem List Diagnosis ??? Low-tension glaucoma of both eyes, severe stage ??? Combined forms of age-related cataract of left eye ??? Combined forms of age-related cataract of both eyes Outpatient Medications Marked as Taking for the 07/29/19 encounter (Post-op Visit) with Caleb Cabello MD [...] neck pain with movement ??? Diabetes mellitus ([facility]) 07/24/19- med controlled, 140-150's usually. ??? Exercise [...] TRABECULOPLASTY ??? LASIK Bilateral 1999 done in [place] Family History Problem Relation Age of Onset ??? Diabetes Mother ??? Cancer Brother Patient reports that he quit smoking about 48 years ago. His smokeless tobacco use includes chew. He reports that he does not use drugs. Recent HbA1c: No results found for: HGBA1C Base Eye Exam Visual Acuity (Snellen - Linear) Right Left Dist sc 20/80 Dist ph sc 20/40 Tonometry (Applanation, 12:15) Right Left Pressure 15 Neuro/Psych Oriented x3: Yes Mood/Affect: Normal Slit Lamp and Fundus Exam External Exam Right Left External Normal Normal Slit Lamp Exam Right Left Lids/Lashes 1+ Blepharitis 1+ Blepharitis Conjunctiva/Sclera White and quiet 1+ injection Cornea Clear Clear Anterior Chamber Deep and quiet Deep, rare cell Iris Round and reactive Round and reactive Lens 2+ NS PCIOL Vitreous Clear Clear, PVD Fundus Exam Right Left Disc to rim inferior, small nerve C/D Ratio 0.9 0.5 Macula Normal Flat, central circular RPE loss Vessels Normal Normal IMPRESSION & PLAN: 1. Low-tension glaucoma of both eyes, severe stage -- referred from optometry (Dr Hayes, OD at [facility]), pt last seen mid-2017 then lost to [...] and likely need for glasses post-operatively OS: POD 1 PCIOL / iris hooks / goniotomy (07/28/19) -- looks good, unclear scVA -- begin lotepred / oflox / ketor QID until next visit -- begin shield QHS x 4 D -- F/U POW 1: VA, MRx OS, IOP OD: CE / goniotomy scheduled for 08/28, will do paperwork at F/U, also check MRx OS at F/U to guide IOL calc 3. Posterior vitreous detachment, left eye -- [...] Pseudophakia- Primary Lens replaced by other means documented in this encounter Eye Exam Visual Acuity (Snellen - Linear) Right eye Left eye Dist sc 20/80 Dist ph sc 20/40 Tonometry (Applanation, 12:15) Right eye Left eye Pressure 15 Neuro/Psych Oriented x3: Yes Mood/Affect: Normal External Exam Right eye Left eye External Normal Normal Slit Lamp Exam Right eye Left eye Lids/Lashes 1+ Blepharitis 1+ Blepharitis Conjunctiva/Sclera White and quiet 1+ injection Cornea Clear Clear Anterior Chamber Deep and quiet Deep, rare cell Iris Round and reactive Round and mai ctive Lens 2+ NS PCIOL Vitreous Clear Clear, PVD Fundus Exam Right eye Left eye Disc to rim inferior, small nerve C/D Ratio 0.9 0.5 Macula Normal Flat, central ci rcular RPE loss Vessels Normal Normal Wearing Rx Sphere Cylinder [place] Right eye -1.00 +0.50 007 Left eye -1.25 +1.00 162 Type: SVL Care Teams Pinner [employer]ed [employer] Boards Relationship Specialty Start Date End Date Cary Granados WELDING INSPECTOR [address] [place] [address] PCP - General 05/21/17 documented as of this encounter
--- OUTSIDE RECORDS SUMMARY | 2024-01-17 13:54 | XMS_ITS | Clinical Summary ---
Author Organization [facility] Address [address] [place] [address] Care Team Providers Care Sports Nutritionist Name Role Phone Cary Granados TABLE TENDER Primary Care Provider [phone] Allergies Active Allergy Reactions Criticality Noted Date [...] Overview: Added automatically from request for surgery [id number] Combined forms of age-relate d cataract of left eye 2019 08/12/2019 Overview: Added automatically from request for surgery [id number] Encounters Date Type Department Care Team Description 01/09/2024 Lab Requisition [facility] Pathology & Laboratory Medicine [address] [address] Outr Resulting Lab, Provider 12/25/2023 Telephone [facility] [address] [place], [place] [phone] Caleb Cabello MD Medications Refill 12/10/2023 Refill [facility] Ophthalmology [address] [phone] Derek Alonzo MD Medications Refill from Last 3 Months Surgical History Surgery Date Site/Laterality Comments EYE SURGERY LASIK 03/11/1999 - 03/10/2000 Bilateral done in [place] LASER TRABECULOPLASTY HERNIA REPAIR 03/11/2004 - 03/10/2005 CATARACT REMOVAL WITH IMPLANT CATARACT REMOVAL Medical History Medical History Date Comments Glaucoma Cataract Other states following surge ry of eye and adnexa Eye trauma may be black eye History of general anesthesia Wears dentures full uppers and lowers BPH (benign prostatic hyperplasia) 07/24/19- per MD note History of anemia 07/24/19- Per M D note History of epidural anesthesia 5 /15/20- Spinal once, cannot remember per pt Decreased range of motion of neck 07/24/19- Creaks and cracks shoulder neck pain with movement Pain 07/24/19- Left sh oulder pain Exercise involving walking - 1-2 miles temperature permitting. No SOB, Hypertension 07/24/19- Med con trolled Diabetes mellitus (HCC-CMS) 07/23- med controlled, 140-150's usually. GERD (gastroesophageal reflux disease) 07/24/19- Currently controlled with famotidine Anemia Arthritis 07/24/19- Left sh oulder, All over hands and feet Family History Medical History Relation Comments Cancer Brother Diabetes Mother Glaucoma Neg Hx Macular Degeneration Neg Hx Relation Status Comments Brother Mother Social History Tobacco Use Types Packs/Day Years Used Date Smoking Tobacco: Former Smokeless Tobacco: Current Chew Interpersonal Safety Answer Date Record ed Physically Hurt Never 10/11/2019 Verbally Threaten Not on file 10/11/2019 Sex and Gender Information Value Date Recorded Sex Assigned at Not on file Gender Identity Male 05/20/2019 12:48 EDT Sexual Orientation Not on file Obstetrics History Last Filed Vital Signs Vital Sign Reading [...] 27.08 07/24/2019 1358 EDT Plan of Treatment Health Maintenance Due Date Last Done Comments RSV Immunization ( o r 60+ Years) (1 - 1-dose 60+ series) 2001 Fall Risk Screening 2006 COVID-19 Vaccine (2023- season) 2023 Medical Devices Implanted Type Area Gamma Ray Operator Device Identifier Shelf Expiration Date Model / Serial / Lot Lens Intraocular Monfocl Ant Bicnvx Opt Foldable +18.5d Wavefront [id number] - [id number] - [id number] Implanted:Qty: 1 on 07/28/2019 by Caleb Cabello MD at [facility] Lens Left: Eye [employer] [id number] 10/09/2023 [id number] 18.5 / [id number] / Lens Intraocular Monfocl Ant Bicnvx Opt Foldable +20.0d Wavefront [id number] - [id number] - [id number] Implanted:Qty: 1 on 08/11/2019 by Caleb Cabello MD at [facility] Lens Right: Eye [employer] [id number] 10/09/2023 [id number]-26 .0 / [id number] / Procedures Procedure Name Priority Date/Time Associated Diagnosis Comments PSA TOTAL, DIAGNOSTIC Routine 01/09/2024 10:50 EDT from Last 3 Months Results * PSA TOTAL, DIAGNOSTIC (01/09/2024 10:50 EDT) PSA 2.6 <=6.5 ng/mL 01/09/2024 22:25 EDT [facility] Blood VENOUS BLOOD / Unknown 01/09/2024 10:50 EDT 01/09/2024 21:16 EDT Narrative [facility] - 01/09/2024 22:25 EDT NOTE: Serum PSA concentration should not be interpreted as absolute evidence for the presence or absence of malignant disease. Assayed on Siemens ADVIA Centaur XPT using chemiluminescent technology.??Values obtained by using different assay methods cannot be used interchangeably. Provider Outr Resulting Lab CHEMISTRY & BLOOD GAS ORDERABLES [facility] [address] [place] [address] from Last 3 Months Advance Directives For more information, please contact: [phone] * Full Code (Latest Code Status on [...] the discussion? Not Discusse d Care Teams Sports Nutritionist Relationship Specialty Start Date End Date Cary Granados NP [address] [place] [address] [phone] (work) [facility] - General 05/21/17
--- OUTSIDE RECORDS SUMMARY | 2024-01-17 13:54 | XMS_ITS | Encounter Summary ---
Author Organization [facility] Address [address] [place] [address] Care Team Providers Care Bi Tester Name Role Phone Darwin Cary Dave TURRET LATHE SET UP OPERATOR Primary Care Provider [phone] Reason for Visit * Reason Comments Medications Refill Encounter Details Date Type Department Care Team (Late st Contact Info) Description 05/24/2023 Refill [facility] Ophthalmology - [address] [phone] Caleb Cabello MD 111 [facility], [address] [place] [phone] Medications Refill Social History Tobacco Use Types [...] Dispensed Refills Start Date End Da te brinzolamide (AZOPT) 1 % ophthalmic suspension INSTILL 1 DROP INTO BOTH EYES TWICE DAILY 30 mL 3 05/24/2023 documented in this encounter Miscellaneous Notes * Telephone Encounter - Awa Meng - 05/24/2023 1000 EDT Medication Refill Medication(s) Requested: Brinzolamide [facility]acy[facility] Is patient out of medication? Yes 30 day supply/ 90 day supply: 90 Follow up appointment: 11/01/23 Please remind the patient that it can [...] Discontinue Reason Start Date End Da te brinzolamide (AZOPT) 1 % ophthalmic suspension Place 1 Drop into both eyes 2 times daily. 01/05/2022 05/24/2023 documented as of this encounter Care Teams Bi Tester Relationship Specialty Start Date End Date Cary Granados, TURRET LATHE SET UP OPERATOR [address] [place] [address] PCP - General 05/21/17 documented as of this encounter
--- OUTSIDE RECORDS SUMMARY | 2024-01-17 13:54 | XMS_ITS | Encounter Summary ---
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-related cataract of left eye [H25.812] Procedures VA XCAPSL CTRC RMVL INSJ IO LENS PROSTH W/O ECP VA RELIEVE INNER EYE PRESSURE Cataract Extraction w/Intraocular Lens Implant, Left Eye Goinotomy, Left Eye Referral ID Status Reason Start Date Expiration Date Visits Re quested Visits Authorized [id number] 1 1 Encounter Details Date Type Department Care Team (Late st Contact Info) Description 07/28/2019 10:35 EDT Anesthesia Event [facility] Operating Room [address] [place] [address] Jasmin Leblanc, [address] [facility], Level 2 [place] [address] Anesthesia Record Procedure Summary Procedure Name Responsible Anesthesiologist Anesthesia Start Time Anesthesia Stop Time Cataract Extraction w/Intraocular Lens Implant, Left Eye (Left: Eye) Jasmin Lelbanc DO 07/28/19 1035 07/28/19 1133 Events Date Time Event Comment 07/28/2019 1035 An Start The patient was re-evaluated immediately before moderate or deep sedation use, before anesthesia induction, or before the anesthesia procedure. 1035 An Start Data 1039 Anesthesia Ready 1130 an stop data 1133 Handoff to RN I completed my handoff to the receiving nurse during which we: 1. Identified the patient 2. Identified the responsible provider 3. Reviewed the pertinent medical history 4. Discussed the surgical course 5. Reviewed intra-op anesthesia management and issues during anesthesia 6. Set expectations for post-procedure period 7. Allowed opportunity for questions and acknowledgement of understanding. 1133 An Stop Meds Name Total midazolam (VERSED) injection 1 mg/mL 2 m g lactated ringers (LR) infusion 100 mL * Agents Name N2O Air Aux O2 flow * Blood No blood administrations on file. Lines, Drains, and Airways Type Details Placement Removal Wound 07/28/19; Incision; Left; Eye; 08/11/19; 0958; Healed 07/28/19 0000 by Ce Morillo RN 08/11/19 0958 by Ashley Manzo RN Peripheral IV 07/28/19; 0924; B Br aun Introcan; Right, Posterior; Hand; Inserted by RN (Renetta); 1; None; 3.15% Chlorhexidine with IPA; 07/28/19; 1155; Discharged, Therapy completed; No complications, Dressing applied, Catheter intact 07/28/19 0924 by Rosemarie Zepeda RN 07/28/19 1155 by Marzena El RN Wound 07/28/19; 1040; Inci savanna; Left; Eye; cataract extraction w/ lens insertion ; 08/11/19; 0959; Healed 07/28/19 1040 by Ce Morillo RN 08/11/19 0959 by Ashley Manzo, CHAPIN documented in this encounter Social History Tobacco [...] 8:44 EDT documented as of this encounter OR Notes * Anesthesia Postprocedure Evaluation - Jasmin Leblanc DO - 07/28/2019 1147 EDT Patient: Baron Tavares Vital signs were reviewed with the recovery nurse. [facility] Vitals Value Taken Time BP 140/80 07/28/2019 11:45 Temp 07/28/2019 11:47 Resp 16 07/28/2019 11:45 Pulse From Oximetry 68 BPM 07/28/2019 11:47 SpO2 93 % 07/28/2019 11:47 Vitals shown include unvalidated device data. Last Pain Score - Numeric Pain Level (Scale 1-10): 0 Type of Anesthesia - MAC Anesthesia Post Evaluation Post-procedure vitals reviewed and are stable. Level of consciousness: alert and oriented and awake Temperature status: normothermia Respiratory status: airway patent and stable Cardiovascular status: acceptable, stable and within patient's normal range Hydration status: adequate Nausea/Vomiting: none Pain management: adequate Post-Op Assessment: patient tolerated procedure well with no complications Patient participation: able to participate Disposition: outpatient/home Anesthesia Complications: No apparent anesthesia complications * Anesthesia Preprocedure Evaluation - Jasmin Leblanc DO - 07/28/2019 1028 EDT Anesthesia Preprocedure Evaluation Patient Medical History, [...] with movement ??? Diabetes mellitus ([facility]) 07/24/19- med controlled, 140-150's usually. ??? Exercise [...] conversion to GA. PAT Note (Notes from 06/28/19 through 07/28/19) PAT Note by Mirtha Nagel at 07/27/2019 9:35 Version 1 of 1 I personally called Mr. Tavares this morning to f/u on his + Covid screening during his PAT. He reports he is feeling fine, no coughing, no runny nose and does have both senses of taste and smell. No further testing or follow up needed[SL.1] Attribution Schultz SL.1 - Mirtha Nagel on 07/27/2019 9:35 PAT Note by Marilu Thao RN at 07/24/2019 14:58 Version 1 of 1 Have you had any flu like symptoms within past six weeks? - Cough - Yes - Runny nose - Yes - SOB -no - Fever/Chills -no - Muscle pain -no - Chest congestion -no - Cold -no - Loss of taste/ smell -Yes - Diarrhea -no Please elaborate if yes: Cough and runny nose within last 6 weeks. Cough was just a few days ago per pt, has since resolved.Runny nose is a chronic issue per pt. Loss of taste and smell is another chronic issue as well thathas been ongoing for years per pt. Pt tested negative for Covid-19 on 07/21/2019. MARILU THAO RN[TP.1] Attribution Schultz TP.1 - Marilu Thao RN on 07/24/2019 14:58 documented in this encounter Plan of Treatment Not on file documented as of this encounter Visit Diagnoses Not on filedocumented in this encounter Administered Medications Inactive Administered Medications - up to 3 most recent administrations Medication Order MAR Action Action Date Dose Rate Site lactated ringers (LR) infusion at 25 mL/hr, intravenous, CONTINUOUS, Starting on Sat07/28/19 at 1000, Until 07/28/19 at 1403, Routine, Preprocedure Continued by Anesthesia 07/28/2019 10:35 EDT New Bag 07/28/2019 9:30 EDT 25 mL/hr midazolam (PF) (VERSED) injection intravenous, PRN, Starting on Sat07/28/19 at 1039, Until Sat07/28/19 at 1147, Routine, Anesthesia Intraprocedure Given 07/28/2019 10:39 EDT 2 mg documented in this encounter Orders Medications Ordered That Saurav ht Not Have Been Administered Count Last Ordered Date First Ordered Date midazolam (PF) (VERSED) injection 1 020 documented in this encounter Care Teams Marketing Information Analyst Relationship Specialty Start Date End Date Cary Granados, [address] [place] [address] PCP - General 05/21/17 documented as of this encounter
--- OUTSIDE RECORDS SUMMARY | 2024-01-17 13:54 | XMS_ITS | Encounter Summary ---
Author Organization [facility] Address [address] [place] [address] Care Team Providers Care Matting Press Tender Name Role Phone Darwin Cary Dave FIRE PROTECTION INSPECTOR Primary Care Provider [phone] Reason for Visit * Reason Onset Date Comments Medications Refill 10/30/2021 Encounter Details Date Type Department Care Team (Late st Contact Info) Description 10/30/2021 Refill [facility] Ophthalmology - [address] [address] Caleb Cabello MD [address] [facility], [address] [place] [phone] Medications Refill Social History Tobacco Use Types [...] Needs to keep apt for further refills. 12.5 mL 10/30/2021 01/02/2022 documented in this encounter Miscellaneous Notes * Telephone Encounter - Awa Meng - 10/30/2021 1045 EDT Medication Refill Medication(s) Requested: Travoprost Pharmacy: [facility] Is patient out of medication? no 30 day supply/ 90 day supply: 90 Follow up appointment: 01/05/22 Please remind the patient that it can [...] 1 Drop into both eyes every evening. Reorder 08/17/2020 10/30/2021 documented as of this encounter Care Teams Matting Press Tender Relationship Specialty Start Date End Date Cary Granados, [address] [place] [address] PCP - General 05/21/17 documented as of this encounter
--- OUTSIDE RECORDS SUMMARY | 2024-01-17 13:54 | XMS_ITS | Encounter Summary ---
Author Organization [facility] Address [address] [place] [address] Care Team Providers Care Manager Of Exhibitions And Collections Name Role Phone Leonardo Granadosi Dave STOCKROOM ATTENDANT Primary Care Provider [phone] Encounter Details Date Type Department Care Team (Late st Contact Info) Description 01/09/2024 Lab Requisition [facility] - [address] [id number] Outr Resulting Lab, Provider Social History Tobacco [...] PSA TOTAL, DIAGNOSTIC Routine 01/09/2024 10:50 EDT documented in this encounter Results * PSA TOTAL, DIAGNOSTIC (01/09/2024 10:50 EDT) PSA 2.6 <=6.5 ng/mL 01/09/2024 22:25 EDT [facility] Blood VENOUS BLOOD / Unknown 01/09/2024 10:50 EDT 01/09/2024 21:16 EDT Narrative [facility] - 01/09/2024 22:25 EDT NOTE: Serum PSA concentration should not be interpreted as absolute evidence for the presence or absence of malignant disease. Assayed on Siemens ADVIA Centaur XPT using chemiluminescent technology.??Values obtained by using different assay methods cannot be used interchangeably. Provider Outr Resulting Lab CHEMISTRY & BLOOD GAS ORDERABLES [facility] [address] [place] [address] documented in this encounter Visit Diagnoses Not on filedocumented in this encounter Care Teams Manager Of Exhibitions And Collections Relationship Specialty Start Date End Date Cary Granados, [address] [place], [place] [id number] PCP - General 05/21/17 documented as of this encounter
--- OUTSIDE RECORDS SUMMARY | 2024-01-17 13:54 | XMS_ITS | Encounter Summary ---
Author Organization [facility] Address [address] [place] [address] Care Team Providers Care Refinery Operator Vapor Recovery Unit Name Role Phone Cary Granados COMPUTER AIDE Primary Care Provider [phone] Encounter Details Date Type Department Care Team (Latest Contact Info) Description 07/28/2019 Travel Social History Tobacco Use Types Packs/Day [...] 8:44 EDT documented as of this encounter Plan of Treatment Not on file documented as of this encounter Visit Diagnoses Not on filedocumented in this encounter Care Teams Refinery Operator Vapor Recovery Unit Relationship Specialty Start Date End Date Cary Granados, COMPUTER AIDE [address] [place], [place] [id number] PCP - General 05/21/17 documented as of this encounter
--- OUTSIDE RECORDS SUMMARY | 2024-01-17 13:54 | XMS_ITS | Encounter Summary ---
Author Organization [facility] Address [address] [place] [address] Care Team Providers Care Casino Worker Name Role Phone Darwin Cary Dave SUPERVISOR FINAL Primary Care Provider [phone] Reason for Visit * Reason Comments Glaucoma Encounter Details Date Type Department Care Team (Late st Contact Info) Description 03/01/2023 15:00 EST Office Visit [facility] Ophthalmology - [address] [address] Caleb Cabello MD [address] [facility], [address] [place] [address] Social History Tobacco Use Types [...] Progress Notes * Caleb Cabello MD - 03/01/2023 1500 EST Chief Complaint Patient presents with Glaucoma HPI Overdue 6 M: IOP, HVF 24-2 FAST OU. No eye pain. Slight decline in vision. +floaters with occasional flashes in the left eye. Surg: SLT OD (05/26), goniotomy OS (07/28) Drops: timolol OU BID, brimonidine OU BID, travatan OU QHS HPI :The patient is a 82 y.o. male Right Eye: Left Eye: Visual Aid: Current Rx Age Location: Pain: Quality: Severity: Duration: Timing: Lasts: Context: Modifying factors: Associated Signs & Symptoms: Attestation: ROS Constitutional: ENT/Mouth Cardiovascular: Respiratory: Gastrointestinal: Genitourinary: Musculoskeletal: Integumentary: Neurologic: Psychiatric: Endocrine: Hematologic: Immunologic: Elementary Teacher: Exposures: Other: Attestation: Allergies include: Amoxicillin Patient Active Problem List Diagnosis Low-tension glaucoma of both eyes, severe stage Pseudophakia Outpatient Medications Marked as Taking for the 03/01/23 encounter (Office Visit) with Caleb Cabello MD Medication Sig brimonidine (ALPHAGAN) 0.2 % ophthalmic solution INSTILL 1 DROP INTO BOTH EYES TWICE DAILY brinzolamide (AZOPT) 1 % ophthalmic suspension Place 1 Drop into both eyes 2 times daily. cyanocobalamin (VITAMIN B-12) 500 mcg tablet Take [...] tablet Take 1 Tablet by mouth daily. tamsulosin (FLOMAX) 0.4 mg capsule Take 1 Capsule by mouth daily. timolol (TIMOPTIC) 0.5 % ophthalmic solution Place 1 Drop into both eyes 2 times daily. travoprost (TRAVATAN Z) 0.004 % ophthalmic solution INSTILL 1 DROP INTO BOTH EYES IN THE EVENING vit A/vit C/vit E/zinc/copper (PRESERVISION AREDS ORAL) Take by mouth. Past Medical History: Diagnosis Date Anemia Arthritis 07/24/19- Left shoulder, All over hands and feet BPH (benign prostatic hyperplasia) 07/24/19- per MD note Cataract Decreased range of motion of neck 07/24/19- Creaks and cracks shoulder neck pain with movement Diabetes mellitus ([facility]) 07/24/19- med controlled, 140-150's usually. Exercise involving walking 07/24/19- 1-2 miles temperature permitting. No SOB, Eye trauma may be black eye GERD (gastroesophageal reflux disease) 07/24/19- Currently controlled with famotidine Glaucoma History of anemia 07/24/19- Per MD note History of epidural anesthesia 07/24/19- Spinal once, cannot remember per pt History of general anesthesia Hypertension 07/24/19- Med controlled Other states following surgery of eye and adnexa Pain 07/24/19- Left shoulder pain Wears dentures full uppers and lowers Past Surgical History: Procedure Laterality Date CATARACT REMOVAL CATARACT REMOVAL WITH IMPLANT EYE SURGERY HERNIA REPAIR 2004 LASER TRABECULOPLASTY LASIK Bilateral 2000 done in [place] Family History Problem Relation Age of Onset Diabetes Mother Cancer Brother Glaucoma Neg Hx Macular Degeneration Neg Hx Patient reports that he has quit smoking. His smokeless tobacco use includes chew. He reports that he does not use drugs. Recent HbA1c: No results found for: HGBA1C Base Eye Exam Visual Acuity (Snellen - Linear) Right Left Dist cc 20/30 -1+2 20/50 +1 Dist ph cc NI Correction: Glasses Tonometry (Applanation, 15:55) Right Left Pressure 8 9 Pupils Dark Shape Right 2 Round Left 3 Irregular Visual Alfaro Right Left Restrictions Total inferior nasal deficiency; Partial outer superior nasal deficiency Neuro/Psych Oriented x3: Yes Mood/Affect: Normal Slit Lamp and Fundus Exam External Exam Right Left External Moderate UL ptosis Moderate UL ptosis Slit Lamp Exam Right Left Lids/Lashes 1+ [...] Normal Normal Refraction Wearing Rx Sphere Cylinder Jaffrey Right -1.00 +1.00 140 Left +0.00 +0.75 017 Type: SVL IMPRESSION & PLAN: 1. Low-tension glaucoma of both eyes, severe stage -- referred from optometry (Dr Hayes, OD at [facility], [facility]), repeatedly lost to F/U -- IOP extremely low, note very thin cornea s/p LASIK OU -- last visit added brinzolamide, IOP continues extreme low -- HVF 24-2 FAST OU today (03/02) moderate reliable, R severe arcuates worse, L moderate arcuate stable -- very low IOP on max topical rx, slow progression R VF, L seems stable -- D/W pt, nothing to add for OAG control, F/U 8 M: IOP, HVF 24-2 FAST OU, dilate OU ON: 0.9 / 0.5, to rim inf, small ON -- likely APD OD Tmax: CCT: 386 / 395 -- s/p LASIK OU Gonio: Open to CBB, 1+ pigment OU (12/25) VF: severe inferior > superior arcuate / early steep superior arcuate (03/02) OCT: 54 / 59 (03/30) Surg: SLT OD (05/26), goniotomy OS (07/28) Drops: timolol OU BID, brimonidine OU BID, brinzolamide OU BID, travatan OU HS Allergy: dorz-timolol (severe stinging, possible allergy) 2. Pseudophakia, bilateral -- note pre-op LASIK OU OD: PCIOL / goniotomy (08/11/19) -- initial hypotony, possibly had cyclodialysis cleft OS: PCIOL / iris hooks / goniotomy (07/28/19) Cont glasses per optometry ([facility], OD) 3. Posterior vitreous detachment, left eye -- retina stable OU on DFEx (12/30) 4. Insulin dependent diabetes -- no retinopathy on [...] vision, worse symptoms, or new/other concerns arise. Claeb Cabello MD. documented in this encounter Plan of Treatment Not on file documented as of this encounter Procedures Procedure Name Priority Date/Time Associated Diagnosis Comments OVALLES VF 24-2 FAST - OU - BOTH EYES Routine 03/01/2023 16:44 EST Low-tension glaucoma of both eyes, severe stage documented in this encounter Results * OVALLES VF 24-2 FAST - OU - BOTH EYES (03/01/2023 16:44 EST) Narrative [facility] OPHTHALMOLOGY - 03/01/2023 16:44 EST Right Eye 24-2. Left Eye 24-2. Notes See interpretation / assessment in main note. Caleb Cabello MD OPHTH VISUAL FIELD [facility] OPHTHALMOLOGY documented in this encounter Visit Diagnoses Diagnosis Low-tension glaucoma of both eyes, severe stage- Primary Low tension open-angle glaucoma documented in this encounter Eye Exam Visual Acuity (Snellen - Linear) Right eye Left eye Dist cc 20/30 -1+2 20/50 +1 Dist ph cc NI Correction: Glasses Tonometry (Applanation, 15:55) Right eye Left eye Pressure 8 9 Pupils Dark Shape Right eye 2 Round Left eye 3 Irregular Visual Alfaro Right eye Left eye Restrictions Total inferior nasal deficiency; Partial outer superior nasal deficiency Neuro/Psych Oriented x3: Yes Mood/Affect: Normal External Exam Right eye Left eye External Moderate UL ptosis Moderate UL p tosis Slit Lamp Exam Right eye Left eye Lids/Lashes 1+ Blepharitis 1+ Blepharitis Conjunctiva/Sclera White and quiet White and jagdish et Cornea Krupa Clear Anterior Chamber Deep and quiet Deep and quiet Iris Round and reactive Irregular pup il Lens PCIOL, moderate PCF PCIOL Anterior Vitreous Clear Clear, PVD Fundus Exam Right eye Left eye Disc tilted ON to rim inferior, small nerve C/D Ratio 0.9 0.5 Macula Normal Flat, central ci rcular RPE loss Vessels Normal Normal Wearing Rx Sphere Cylinder Jaffrey Right eye -1.00 +1.00 140 Left eye +0.00 +0.75 017 Type: SVL Care Teams Casino Worker Relationship Specialty Start Date End Date Cary Granados NP [address] [place] [id number] PCP - General 05/21/17 documented as of this encounter
--- OUTSIDE RECORDS SUMMARY | 2024-01-17 13:54 | XMS_ITS | Encounter Summary ---
Author Organization [facility] Address [address] [place] [address] Care Team Providers Care Dental Billing Specialist Name Role Phone Darwin Cary Dave BREADMAN Primary Care Provider [phone] Reason for Visit * Reason Comments Post-OP Follow Up Encounter Details Date Type Department Care Team (Late st Contact Info) Description 09/07/2019 14:15 EDT Post-op Visit [facility] Ophthalmology - [address] [id number] Caleb Cabello MD 111 [facility], [address] [place] [address] Pseudophakia (Primary Dx); Low-tension glaucoma of both [...] 9:10 EDT documented as of this encounter Progress Notes * Caleb Cabello MD - 09/07/2019 2590 EDT Chief Complaint Patient presents with ??? Post-OP Follow Up Comments CE/IOL with goniotomy both eyes with hypotony right eye. Pt feels vision is much improved in right eye with good overall comfort. Using kevyn BID, brim BID, TVT QHS all left eye only. No drops in righteye. Seeing optom on 09/14 HPI :The patient is a 79 y.o. male Right Eye: Blurred Vision Left Eye: Blurred Vision Visual Aid: Current Rx Age Location: Both eyes Pain: 0 - No pain Quality: Blurry Severity: Duration: Timing: Lasts: Context: VA in right eye seems improved Modifying factors: Associated Signs & Symptoms: Attestation: ROS Constitutional: NL ENT/Mouth Cardiovascular: High Blood Pressure, High Cholesterol Respiratory: Gastrointestinal: Genitourinary: Musculoskeletal: Integumentary: Neurologic: Psychiatric: Endocrine: Diabetes Hematologic: Immunologic: Drug Allergy Maintenance Foreman: Exposures: None Other: Attestation: Allergies include: Amoxicillin Patient Active Problem List Diagnosis ??? Low-tension glaucoma of both eyes, severe stage ??? Pseudophakia Outpatient Medications Marked as Taking for the 09/07/19 encounter (Post-op Visit) with Caleb Cabello MD [...] left eye 2 times daily. ) ??? travoprost (TRAVATAN Z) 0.004 % ophthalmic solution Place 1 Drop into both eyes every evening. (Patient taking differently: Place 1 Drop into the left eye every evening. ) ??? vit A/vit C/vit E/zinc/copper (PRESERVISION AREDS ORAL) Take by mouth. Past Medical History: Diagnosis Date ??? Anemia ??? Arthritis 07/24/19- Left shoulder, All over hands and feet ??? BPH (benign prostatic hyperplasia) 07/24/19- per MD note ??? Cataract ??? Decreased range of motion of neck 07/24/19- Creaks and cracks shoulder neck pain with movement ??? Diabetes mellitus ([facility]) 07/24/19- med controlled, 140-150's usually. ??? Exercise [...] TRABECULOPLASTY ??? LASIK Bilateral 1999 done in [place] Family History Problem Relation Age of Onset ??? Diabetes Mother ??? Cancer Brother Patient reports that he quit smoking about 48 years ago. His smokeless tobacco use includes chew. He reports that he does not use drugs. Recent HbA1c: No results found for: HGBA1C Base Eye Exam Visual Acuity (Snellen - Linear) Right Left Dist sc 20/50 20/50 Dist ph sc 20/30 +2 20/40 Tonometry (Applanation, 14:11) Right Left Pressure 10 7 Neuro/Psych Oriented x3: Yes Mood/Affect: Normal Slit Lamp and Fundus Exam External Exam Right Left External Normal Normal Slit Lamp Exam Right Left Lids/Lashes 1+ Blepharitis 1+ Blepharitis Conjunctiva/Sclera Fine diffuse injection White and quiet Cornea Clear, trace SPK Clear, trace SPK Anterior Chamber Deep and quiet Deep and [...] referred from optometry (Dr Hayes, OD at [facility]), pt last seen mid-2017 then lost [...] OD (05/26), goniotomy OS (07/28) Gtts: timolol OS BID, brimonidine OS BID, travatan OS QHS Allergy: dorz-timolol (severe stinging, possible allergy) 2. Pseudophakia, bilateral -- note pre-op LASIK OU OD: POM 1 PCIOL / goniotomy (08/11/19) -- initial hypotony, possibly had cyclodialysis cleft -- held glaucoma rx and now IOP back in safe range OS: POM 1.5 PCIOL / iris hooks / goniotomy (07/28/19) -- healing well, quiet off all rx Plan: 1. Pt to [facility] office for MRx in next weeks 2. Resume all glaucoma rx R eye, cont as is L eye 3. F/U ~2.5 M: IOP, HVF 24-2 OU, paremyd OU 3. Posterior vitreous detachment, left eye [...] eye 2x daily. Shake well each time. Therapy completed 08/12/2019 09/07/2019 documented as of this encounter Eye Exam Visual Acuity (Snellen - Linear) Right eye Left eye Dist sc 20/50 20/50 Dist ph sc 20/30 +2 20/40 Tonometry (Applanation, 14:11) Right eye Left eye Pressure 10 7 Neuro/Psych Oriented x3: Yes Mood/Affect: Normal External Exam Right eye Left eye External Normal Normal Slit Lamp Exam Right eye Left eye Lids/Lashes 1+ Blepharitis 1+ Blepharitis Conjunctiva/Sclera Fine diffuse injection White and quiet Cornea Clear, trace SPK Clear, trace SP K Anterior Chamber Deep and quiet Deep and quiet Iris Round and reactive Round and mai ctive Lens PCIOL PCIOL Vitreous Clear Clear, PVD Fundus Exam Right eye Left eye Disc to rim inferior, small nerve C/D Ratio 0.9 0.5 Macula Normal Flat, central ci rcular RPE loss Vessels Normal Normal Care Teams Dental Billing Specialist Relationship Specialty Start Date End Date Cary Granados, BREADMAN [address] [place] [address] PCP - General 05/21/17 documented as of this encounter
--- OUTSIDE RECORDS SUMMARY | 2024-01-17 13:54 | XMS_ITS | Encounter Summary ---
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 [H25.813] Procedures IA XCAPSL CTRC RMVL INSJ IO LENS PROSTH W/O ECP IA RELIEVE INNER EYE PRESSURE EXTRACAP CATARACT REMOVAL W/LENS INSERTION STAGE 1 GONIOTOMY Referral ID Status Reason Start Date Expiration Date Visits Re quested Visits Authorized [id number] 1 1 Encounter Details Date Type Department Care Team (Late st Contact Info) Description 08/11/2019 9:13 EDT - 08/11/2019 12:13 EDT Hospital Encounter [facility] Operating Room [address] [place] [address] Caleb Cabello MD [address] [facility], [facility] [address] [place] [address] Discharge Disposition: Home or Self Care Social History Tobacco Use Types Packs/Day Years [...] encounter Discharge Instructions * Discharge Instructions* Caleb aCbello MD - 08/11/2019 11:59 EDT Post-Operative Cataract Surgery Instructions Caleb Cabello MD Leave the patch and shield on overnight tonight. It will be removed in the office tomorrow. The eyemay be mildly sore; take Tylenol or other mkrf-smt-mqippmo pain reliever if needed, following the directions on the package. If you have severe pain or nausea, call Dr. Cabello or [facility] ([phone]) and ask to speak to the grain elevator motor starter region manager. You do not need any medicine in [...] Code Departure Means Destination Home or Self Custodial documented in this encounter H&P Notes * Caleb Cabello MD - 08/11/2019 0948 EDT The preoperative history and physical which was performed within 30 days of this procedure has been reviewed and the clinically appropriate elements of the physical examination have been repeated. There are no changes to the documented history and physical or if so such changes are documented below Caleb Cabello MD 08/11/2019 9:48 Source Note - [place]MAN, SCAN 2 - 08/05/2019 13:59 EDT documented in this encounter OR Notes * OR Surgeon - Caleb Cabello MD - 08/11/2019 0948 EDT Date of Procedure: 08/11/19 Preoperative Dx: [...] and the nucleus was removed using a kxzaii-sxp-khqabgj technique. The bimanual irrigation and aspiration handpiece [...] gonioprism, the angle was visualized and the [place] goniotomy blade was used to excise a [...] EDT) 08/19/2019 11:5 5 EDT Scan 2 Utility Accounts Director PROCEDURE/MINOR MEENA GICAL ORDERABLES * (ABNORMAL) POCT GLUCOSE, INTERFACED (08/11/2019 9:42 EDT) Glucose, POC 163(H) 70 - 100 mg/dL 08/11/2019 9:43 EDT [facility] dock coordinator ID [id number] 08/11/2019 9:43 EDT [facility] HN LAB POC COMMENT (GLUCOSE) Test Performed by Nursing Services 08/11/2019 9:43 EDT [facility] Blood CAPILLARY BLOOD / Unknown 08/11/2019 9:42 EDT 08/11/2019 9:43 EDT Caleb Cabello MD POINT OF CARE TEST O RDERABLES [facility] [address] [place] [address] documented in this encounter Visit Diagnoses Diagnosis [...] MAR Action Action Date Dose Rate Site cyclopentolate (CYCLOGYL) 2 % ophthalmic solution 1 [...] Drop Given 08/11/2019 9:41 EDT 1 Drop moxifloxacin (VIGAMOX) 0.5 % ophthalmic solution 1 Drop 1 Drop, right eye, PREOP LINKED EYE MEDS-SEE ADMIN INSTRUCTIONS, 3 doses, First dose on Sat08/11/19 at 1000, Last dose on Sat08/11/19 at 1010, Routine, Preprocedure Given 08/11/2019 9:40 EDT 1 Drop Given 08/11/2019 9:39 EDT 1 Drop Given 08/11/2019 9:38 EDT 1 Drop phenylephrine (MYDFRIN) 2.5 % ophthalmic solution 1 [...] Preprocedure Given 08/11/2019 9:37 EDT 1 Drop tropicamide (MYDRIACYL) 1 % [...] ADMIN INSTRUCTIONS, 3 doses, First dose on 08/11/19 at 1000, Last dose on Sat08/11/19 at 1010, Routine, Preprocedure 0949 (Given - Provid er: Ashley Manzo RN)0950 (Given - Provider: Ashley Manzo RN)0951 (Given - Provider: Ashley Manzo RN) proparacaine (ALCAINE) 0.5 % ophthalmic solution 1 Drop (COMPLETED) 1 Drop, right eye, PREOP LINKED EYE MEDS-SEE ADMIN INSTRUCTIONS, 1 dose, First dose on e 08/11/19 at 1000, Routine, Preprocedure 0937 (Given - [...] mL irrigation (CANCELED) As needed, Starting on e 08/11/19 at 1104, Until Sat08/11/19 at 1109, Routine, Intraprocedure 1104 (Given - Provid er: Caleb Cabello MD - Comment: BSS I [id number] BSS II [id number] Epi [id number]) balanced salts (BSS) ophthalmic solution (CANCELED) As needed, Starting on 08/11/19 at 1104, Until e 6/2/20 at 1109, Routine, Intraprocedure 1104 (Given - Provid er: Caleb Cabello MD) chondroitin-sodium hyaluronate (VISCOAT) ophthalmic solution (CANCELED) As needed, Starting on 6/2/20 at 1105, Until 6/2/20 at 1109, Routine, Intraprocedure 1105 (Given - Provid er: Caleb Cabello MD - Comment: #[id number]) dextrose 50 % solution 12.5 g 12.5 g, intravenous, PRN, Starting on 6/2/20 at 0930, Until 6/2/20 at 1421, Low Blood Sugar, Routine, Preprocedure glucagon injection 1 mg 1 mg, intramuscular, PRN, Starting on 6/2/20 at 0930, Until 6/2/20 at 1421, Low Blood Sugar, Routine, Preprocedure lidocaine (PF) 10 mg/mL (1 %) injection (CANCELED) As needed, Starting on 6/2/20 at 1106, Until 6/2/20 at 1109, Routine, Intraprocedure 1106 (Given - Provid er: Caleb Cabello MD - Comment: #[id number]) moxifloxacin (VIGAMOX) 0.5 % ophthalmic solution (CANCELED) As needed, Starting on 6/2/20 at 1106, Until 6/2/20 at 1109, Routine, Intraprocedure 1106 (Given - Provid er: Caleb Cabello MD) waeqbavo-lrejgdrbz-mqzktdayuridn (MAXITROL) ophthalmic ointment (CANCELED) As needed, Starting on 6/2/20 at 1106, Until 6/2/20 at 1109, Intraprocedure 1106 (Given - Provid er: Caleb Cabello MD) sodium hyaluronate (HEALON) ophthalmic injection (CANCELED) As needed, Starting on 6/2/20 at 1107, Until 6/2/20 at 1109, Routine, Intraprocedure 1107 (Given - Provid er: Caleb Cabello MD - Comment: #[id number]) sodium hyaluronate (HEALON) ophthalmic injection (CANCELED) As needed, Starting on 6/2/20 at 1121, Until Tu08/11/19 at 1121, Routine, Intraprocedure 1121 (Given - Provid er: Caleb Cabello MD - Comment: #[id number]) timolol (TIMOPTIC) 0.5 % ophthalmic solution (CANCELED) As needed, Starting on 08/11/19 at 1108, Until 08/11/19 at 1109, Routine, Intraprocedure 1108 (Given - Provid er: Caleb Cabello MD) documented in this encounter Orders Medications Ordered That Saurav ht Not Have Been Administered Count Last Ordered Date First Ordered Date balanced salt solution inrri gation solution (BSS PLUS) 500 mL, EPINEPHrine HCl (PF) (ADRENALIN) 0.5 mL irrigation 1 08/11/2019 balanced salts (BSS) ophthalmic solution 1 08/11/2019 chondroitin-sodium hyalurona te (VISCOAT) ophthalmic solution 1 08/11/2019 dextrose 50 % solution 12.5 g 1 08/11/2019 glucagon injection 1 mg 1 08/11/2019 lidocaine (PF) 10 mg/mL (1 %) injection 1 0 08/11/2019 moxifloxacin (VIGAMOX) 0.5 % ophthalmic solution 1 08/11/2019 mwbgowog-uvvguuzfn-uqmmmqulg sone (MAXITROL) ophthalmic ointment 1 08/11/2019 sodium hyaluronate (HEALON) ophthalmic injection 2 08/11/2019 timolol (TIMOPTIC) 0.5 % oph thalmic solution 1 08/11/2019 tobramycin (TOBREX) 0.3 % op hthalmic ointment 1 08/11/2019 Transfer Count Last Ordered Date First Orde red Date NON-TEACHING SERVICE 1 08/11/2019 Discharge Count Last Ordered Date First Orde red Date DISCHARGE PATIENT 1 08/11/2019 documented in this encounter Care Teams Multiple Coil Winder Relationship Specialty Start Date End Date Cary Granados NP [address] [place] [address] PCP - General 05/21/17 documented as of this encounter
--- OUTSIDE RECORDS SUMMARY | 2024-01-17 13:54 | XMS_ITS | Encounter Summary ---
Author Organization [facility] Address [address] [place] [address] Care Team Providers Care Patient Safety Attendant Name Role Phone Cary Granados SENIOR ENGINEERING TECHNICIAN Primary Care Provider [phone] Encounter Details Date Type Department Care Team (Latest Contact Info) Description 08/07/2019 Travel Social History Tobacco Use Types Packs/Day [...] 10:58 EDT documented as of this encounter Plan of Treatment Not on file documented as of this encounter Visit Diagnoses Not on filedocumented in this encounter Care Teams Patient Safety Attendant Relationship Specialty Start Date End Date Cary Granados, SENIOR ENGINEERING TECHNICIAN [address] [place], [place] [address] PCP - General 05/21/17 documented as of this encounter
--- OUTSIDE RECORDS SUMMARY | 2024-01-17 13:54 | XMS_ITS | Encounter Summary ---
Author Organization [facility] Address [address] [place] [address] Care Team Providers Care Sap Portal Architect Name Role Phone Darwin Cary Dave SALESPERSON WIGS Primary Care Provider [phone] Reason for Visit * Reason Comments Post-OP Follow Up Encounter Details Date Type Department Care Team (Late st Contact Info) Description 08/18/2019 9:00 EDT Post-op Visit [facility] Ophthalmology - [address] [phone] Caleb Cabello MD [address] [facility], [address] [place] [address] Pseudophakia (Primary Dx); Low-tension glaucoma [...] Progress Notes * Caleb Cabello MD - 08/18/2019 0900 EDT Chief Complaint Patient presents with ??? Post-OP Follow Up Comments S/p CE/IOL with goniotomy both eyes. Hypotony right eye. Using atropine BID, lote/oflox/ket QID right eye. Left eye: lote BID, kevyn BID, brim BID and TVT QHS. Notes fluctuating vision, overall good comfort. Wears sunglasses in bright lighting. HPI :The patient is a 79 y.o. male Right Eye: Blurred Vision Left Eye: Blurred Vision Visual Aid: Current Rx Age Location: Both eyes Pain: Quality: Blurry Severity: Duration: Timing: Lasts: Context: Modifying factors: Associated Signs & Symptoms: Attestation: ROS Constitutional: NL ENT/Mouth Cardiovascular: High Blood Pressure, High Cholesterol Respiratory: Gastrointestinal: Genitourinary: Musculoskeletal: Integumentary: Neurologic: Psychiatric: Endocrine: Diabetes Hematologic: Immunologic: Drug Allergy Keymodule Assembly Machine Tender: Exposures: None Other: Attestation: Allergies include: Amoxicillin Patient Active Problem List Diagnosis ??? Low-tension glaucoma of both eyes, severe stage ??? Pseudophakia Outpatient Medications Marked as Taking for the 08/18/19 encounter (Post-op Visit) with Caleb Cabello MD [...] drop in the RIGHT eye 4x daily. 1drop in the LEFT eye 2x daily. Shake well each time. ??? metFORMIN (GLUCOPHAGE) 500 mg tablet Take [...] neck pain with movement ??? Diabetes mellitus ([facility]) 07/24/19- med controlled, 140-150's usually. ??? Exercise [...] surgery of eye and adnexa ??? Pain 5/15/20- Left shoulder pain ??? Wears dentures full uppers and lowers Past Surgical History: Procedure Laterality Date ??? CATARACT REMOVAL ??? CATARACT REMOVAL WITH IMPLANT ??? EYE SURGERY ??? HERNIA REPAIR 2004 ??? LASER TRABECULOPLASTY ??? LASIK Bilateral 1999 done [place] Family History Problem Relation Age of Onset ??? Diabetes Mother ??? Cancer Brother Patient reports that he quit smoking about 48 years ago. His smokeless tobacco use includes chew. He reports that he does not use drugs. Recent HbA1c: No results found for: HGBA1C Base Eye Exam Visual Acuity (Snellen - Linear) Right Left Dist sc 20/25 20/70 +1 Dist ph sc 20/40 Tonometry (Applanation, 8:52) Right Left Pressure 4 6 Gonioscopy OD: open to CB, nasal goniotomy with heme in canal in area of goniotomy OS: open to CB, nasal goniotomy Neuro/Psych Oriented x3: Yes Mood/Affect: Normal Slit [...] circular RPE loss Vessels Normal Normal Periphery Normal, no choroidals Refraction Wearing Rx Sphere Cylinder [place] Right -1.00 +0.50 007 Left -1.25 +1.00 162 Type: SVL IMPRESSION & PLAN: 1. Low-tension glaucoma of both eyes, severe stage -- referred from optometry (Dr Hayes, OD at [facility]), pt last seen mid-2017 then lost [...] then R eye, CE and goniotomy -- drops with lotemax for IOP risk -- aim plano, emphasized difficulty with post-LASIK calcs and likely need for glasses post-operatively OD: POW 1 PCIOL / goniotomy (08/11/19) -- recovering hypotony, possibly had cyclodialysis cleft, no choroidals -- cont to hold glaucoma rx OD, D/C oflox / ketor, cont atropine BID, lotepred TID OS: POW 3 PCIOL / iris hooks / goniotomy (07/28/19) -- healing well, MRx nearly plano, good IOP -- cont lotepred OS BID x 1 W then stop, cont glaucoma rx above [facility] ~4-5W from now -- wrote out and reviewed all drop instructions -- F/U 3 W: VA, IOP OU 3. Posterior vitreous detachment, [...] Discontinue Reason Start Date End Da te ketOROLAC (ACULAR) 0.5 % ophthalmic solution 1 Drop to Right Eye. 4 x daily beginning 4 days BEFORE surgery. Dispense 1 bottle. No refill. Therapy completed 08/05/2019 08/18/2019 ofloxacin (OCUFLOX) 0.3 % ophthalmic solution 1 Drop to Right Eye. 4 x daily beginning 4 days BEFORE surgery. Dispense 1 bottle. No refill. Therapy completed 08/05/2019 08/18/2019 documented as of this encounter Eye Exam Visual Acuity (Snellen - Linear) Right eye Left eye Dist sc 20/25 20/70 +1 Dist ph sc 20/40 Tonometry (Applanation, 8:52) Right eye Left eye Pressure 4 6 Gonioscopy OD: open to CB, nasal goniotomy with heme in canal in area of goniotomy OS: open to CB, nasal goniotomy Neuro/Psych Oriented x3: Yes Mood/Affect: Normal External [...] rcular RPE loss Vessels Normal Normal Periphery Normal, no choroidals Wearing Rx Sphere Cylinder [place] Right eye -1.00 +0.50 007 Left eye -1.25 +1.00 162 Type: SVL Care Teams Sap Portal Architect Relationship Specialty Start Date End Date Cary Granados NP [address] [place] [id number] PCP - General 05/21/17 documented as of this encounter
--- OUTSIDE RECORDS SUMMARY | 2024-01-17 13:55 | XMS_ITS | Encounter Summary ---
Author Organization [facility] Address [address] [place] [address] Care Team Providers Care Hazard Waste Handler Name Role Phone DarwinCary Dave DATA NETWORK ARCHITECT Primary Care Provider [phone] Encounter Details Date Type Department Care Team (Late st Contact Info) Description 07/20/2019 Orders Only [facility] Ophthalmology - [address] [address] Caleb Cabello MD 111 [facility], [address] [place] [address] Cataract of both eyes, unspecified cataract type (Primary Dx) Social History Tobacco Use Types Packs/Day Years Used Date Smoking Tobacco: Former Smokeless Tobacco: Current Chew Sex and Gender Information Value Date Recorded Sex Assigned at Not on file Gender Identity Male 05/20/2019 12:48 EDT Sexual Orientation Not on file documented as of this encounter Progress Notes * Caleb Cabello MD - 07/20/2019 8036 EDT Entered COVID testing order. documented in this encounter Plan of Treatment Not on file documented as of this encounter Results * COVID-19 TESTING (07/21/2019 14:42 EDT) COVID-19 rt-PCR Result NEGATIVE Negative 07/22/2019 14:50 EDT [facility] Comment: 2019-novel Coronavirus (2019-nCoV) not detected by the qRT-PCR assay. Consider testing for other respiratory viruses or re-collecting for 2019-nCoV testing. Note: Optimum timing for peak viral levels during infections caused by 2019-nCoV have not been determined. Collection of multiple specimens from the same patient may be necessary to detect the virus. Limitations Positive results are indicative of active infection with SARS-CoV-2 but do not rule out bacterial infection or co-infection with other viruses. The agent detected may not be the definite cause of disease. In addition, detection of viral RNA may not indicate the presence of infectious virus or that SARS-CoV-2 is the causative agent for clinical symptoms. Negative results do not preclude SARS-CoV-2 infection and should not be used as the sole basis for patient management decisions. Negative results must be combined with clinical observations, patient history, and epidemiological information. False negative results may also occur if amplification inhibitors are present in the specimen or if inadequate numbers of organisms are present in the specimen. Optimum specimen types and timing for peak viral levels during infections caused by SARS-CoV-2 have not been fully determined. Collection of multiple specimens (types and time points) from the same patient may be necessary to detect the virus. The test was validated for use with upper respiratory specimens obtained via nasopharyngeal or oropharyngeal swabs in VTM, UTM, M4, M5, M6, saline, and MTM media. The performance of this test has not been established for other specimens. Specimens collected using other FDA recommended Specimen Collection Materials listed in the FDA COVID-19 [employer] communication (June 04, 2019) are processed with the caveat that they were not all validated for use with this test and the result must be interpreted in this context. Furthermore, a false negative results may occur if a specimen is improperly collected, transported or handled. If the virus mutates in the RT-PCR target region, SARS-CoV-2 may not be detected or may be detected less predictably. Inhibitors or other types of interference may produce a false negative result. An interference study evaluating the effect of common cold medications was not performed. This test is not FDA-cleared but its performance characteristics were established by our CLIA-certified, CAP-accredited, high complexity laboratory in accordance with CLIA regulations, [employer] (CAP) guidelines (May 28, 2019), and FDA guidance (May 09, 2019). This test is only for use under the Food and Drug Administration's Emergency Use Authorization. Performing Lab [facility] 07/22/2019 14:50 EDT [facility] Swab ENTIRE NASOPHARYNX / Unknown Swab / Unknown 07/21/2019 14:42 EDT 07/21/2019 14:42 EDT Caleb Cabello MD MICROBIOLOGY - GENER AL ORDERABLES [facility] [address] [place] [address] [facility] [place] documented in this encounter Visit Diagnoses Diagnosis Cataract of both eyes, unspecified cataract type- Primary documented in this encounter Care Teams Hazard Waste Handler Relationship Specialty Start Date End Date Cary Granados, DATA NETWORK ARCHITECT [address] [place] [address] PCP - General 05/21/17 documented as of this encounter
--- OUTSIDE RECORDS SUMMARY | 2024-01-17 13:55 | XMS_ITS | Encounter Summary ---
Author Organization [facility] Address [address] [place] [address] Care Team Providers Care Fire Control Mechanic Name Role Phone SelvinharshalCary ordaz Dave WOOD TANK ERECTOR Primary Care Provider Reason for Visit * Reason Comments Other Encounter Details Date Type Department Care Team (Late st Contact Info) Description 03/17/2019 Refill [facility] Ophthalmology - [address] [phone] Caleb Cabello MD [address] [facility], [address] [place] [address] Other Social History Tobacco Use [...] IN EACH EYE TWICE DAILY 30 mL 3 03/17/2019 03/23/2019 brimonidine (ALPHAGAN) 0.2 % ophthalmic solution INSTILL 1 DROP IN EACH EYE TWICE DAILY 30 mL 3 03/17/2019 03/23/2019 documented in this encounter Miscellaneous Notes * Telephone Encounter - Chana Campos MA - 03/17/2019 1303 EST Doctor: Caleb Cabello MD Requested Medication(s): timolol 90 day supply Brimonidine 90 day supply Last appointment date: 10/10/2017 Last appointment note regarding medication: pt c/o severe sting with dorz-kevyn and has stopped dorz-kevyn and instead is using timolol OU BID -- will hold dorz- kevyn for now and cont timolol, additionallyadd brimonidine OU BID Next appointment date: 03/23/2019 documented in this encounter Plan of Treatment Not on file documented as of this encounter Visit Diagnoses Not on filedocumented in this encounter Discontinued Medications Medication Sig Discontinue Reason Start Date End Da te brimonidine (ALPHAGAN) 0.2 % ophthalmic solution Place 1 Drop into both eyes 2 times daily. Please francia [phone] for appointment and further refills. 01/14/2019 03/17/2019 timolol (TIMOPTIC) 0.5 % ophthalmic solution Place 1 Drop into both eyes 2 times daily. Please call [phone] for appointment and further refill. 01/14/2019 03/17/2019 documented as of this encounter Care Teams Fire Control Mechanic Relationship Specialty Start Date End Date Cary Granados, OSCAR [address] [place] [id number] PCP - General 05/21/17 documented as of this encounter
--- OUTSIDE RECORDS SUMMARY | 2024-01-17 13:55 | XMS_ITS | Encounter Summary ---
Author Organization [facility] Address [address] [place] [address] Care Team Providers Care Stump Blower Name Role Phone Ronald Bailey MD Primary Care Provider [phone] Reason for Referral * (Routine) - Closed Specialty Diagnoses / Procedures Referred By Romina t Referred To Contact Diagnoses Low-tension glaucoma of both eyes, severe stage Procedures OCT (OPHTHALMIC DIGITAL IMAGING, POSTERIOR SEGMENT) Caleb Cabello MD [address] [address] Referral ID Status Reason Start Date Expiration Date Visits Re quested Visits Authorized [id number] Closed 01/04/2017 1 1 * (Routine) - Closed Specialty Diagnoses / Procedures [facility] Referred To Contact Diagnoses Low-tension glaucoma of both eyes, severe stage Procedures VISUAL FIELD EXAM, EXTENDED Caleb Cabello MD [address] [address] Referral ID Status Reason Start Date Expiration Date Visits Re quested Visits Authorized [id number] Closed 01/04/2017 1 1 Reason for Visit * Reason Comments Eye Problem Referred by Dr. Lulu novoa for glaucoma evaluation. Using timolol about 7:30 and again in mid afternoon, TVT QHS both eyes (started 2008). POHx: LASIK OU (1999). Using AREDS2. No family history of glaucoma or AMD. Feels vision has been slowly worsening over time. Encounter Details Date Type Department Care Team (Late st Contact Info) Description 01/04/2017 12:30 EDT Office Visit [facility] Ophthalmology - [address] [id number] Caleb Cabello MD 111 [facility], [address] [place] [address] Discharge Disposition: Auto Discharge Social History Tobacco Use Types Packs/Day Years Used Date Smoking Tobacco: Former Smokeless Tobacco: Former Chew Sex and Gender Information Value Date Recorded Sex Assigned at Not on file Gender Identity Male 05/20/2019 12:48 EDT Sexual Orientation Not on file documented as of this encounter Discharge Diagnoses Diagnosis H40.1233 Low-tension glaucoma, bilateral, severe stage-H40.1233[ICD-10-CM] H25.13 Age-related nuclear cataract, bilateral-H25.13[ICD-10-CM] H43.812 Vitreous degeneration, left eye-H43.812[ICD-10-CM] documented in this encounter Ordered Prescriptions Prescription Sig Dispensed Refills Start Date End Da te dorzolamide-timolol (COSOPT) 22.3-6.8 mg/mL ophthalmic solution Place 1 Drop into both eyes 2 times daily. 3 Bottle 3 01/04/2017 10/10/2017 documented in this encounter Discharge Disposition Disposition Code Departure Means Destination Auto Discharge documented in this encounter Progress Notes * Caleb Cabello MD - 01/04/2017 1230 EDT Chief Complaint Patient presents with ??? Eye Problem Referred by Dr. Martinez for glaucoma evaluation. Using timolol about 7:30 and again in mid afternoon, TVT QHS both eyes (started 2008). POHx: LASIK OU (1999). Using AREDS2. No family history of glaucoma or AMD. Feels vision has been slowly worsening over time. HPI :The patient is a 76 y.o. male Right Eye: Blurred Vision Left Eye: Blurred Vision Visual Aid: Glasses Current Rx Age Location: Both eyes Pain: 0 - No pain Quality: Severity: Duration: Timing: Lasts: Context: Gradually worsening vision both eyes Modifying factors: LASIK both eyes Associated Signs & Symptoms: glaucoma Attestation: ROS Constitutional: NL ENT/Mouth NL Cardiovascular: NL Respiratory: NL Gastrointestinal: NL Genitourinary: NL Musculoskeletal: NL Integumentary: NL Neurologic: NL Psychiatric: NL Endocrine: NL Hematologic: NL Immunologic: NL Finance Administrator: Exposures: Other: Attestation: Allergies include: Review of patient's allergies indicates no known allergies. There is no problem list on file for this patient. Outpatient Prescriptions Marked as Taking for the 01/04/17 encounter (Office Visit) with Caleb Cabello MD Medication Sig ??? aspirin 81 mg EC tablet Take 81 mg by mouth daily. ??? atenolol-chlorthalidone (TENORETIC) 50-25 mg per tablet Take 1 Tab by mouth daily. ??? INSULIN DETEMIR (LEVEMIR FLEXPEN SUBQ) Inject 27 Units into the skin daily. ??? lisinopril (PRINIVIL, ZESTRIL) 10 mg tablet Take 10 mg by mouth daily. ??? metFORMIN (GLUCOPHAGE) 500 mg tablet Take 1,000 mg by mouth 2 times daily with breakfast and dinner. ??? NAPROXEN SODIUM (ALEVE ORAL) Take 1 Tab by mouth daily. ??? ranitidine (ZANTAC) 150 mg tablet Take 150 mg by mouth daily. ??? simvastatin (ZOCOR) 20 mg tablet Take 20 mg by mouth daily. ??? timolol (TIMOPTIC) 0.5 % ophthalmic solution Place 1 Drop into both eyes 2 times daily. ??? travoprost (TRAVATAN Z) 0.004 % ophthalmic solution Place 1 Drop into both eyes every evening. ??? VIT C/E/ZN/COPPR/LUTEIN/ZEAXAN (PRESERVISION AREDS 2 ORAL) Take 1 Tab by mouth daily. Past Medical History: Diagnosis Date ??? Glaucoma Past Surgical History: Procedure Laterality Date ??? EYE SURGERY ??? LASIK No family history on file. Patient reports that he has quit smoking. He has quit using smokeless tobacco. His smokeless tobacco use included Chew. Recent HbA1c: No results found for: HGBA1C Base Eye Exam Visual Acuity (Snellen - Linear) Right Left Dist cc 20/30 20/40 Correction: Glasses Tonometry (Applanation, 12:42) Right Left Pressure 12 13 Pachymetry (01/04/2017) Right Left Thickness 386 395 Gonioscopy Dilated view OU: open to CB, 1+ pigment Pupils Dark Light Right 4 3 Left 4 3 Extraocular Movement Right Left Result Full Full Neuro/Psych Oriented x3: Yes Mood/Affect: Normal Dilation Both eyes: Paremyd @ 13:20 Slit Lamp and Fundus Exam External Exam Right Left External Normal Normal Slit Lamp Exam Right Left Lids/Lashes 1+ Blepharitis 1+ Blepharitis Conjunctiva/Sclera White and quiet White and quiet Cornea Clear Clear Anterior Chamber Deep and quiet Deep and quiet Iris Round and reactive Round and reactive Lens 1-2+ NS 2+ NS, PXF Vitreous Clear Clear, PVD Fundus Exam Right Left Disc DH sup to rim inf, small nerve C/D Ratio 0.9 0.5 Macula Flat Flat Vessels Normal Normal Periphery Normal Normal Refraction Wearing Rx Sphere Cylinder [place] Right -1.00 +0.50 007 Left -1.25 +1.00 162 IMPRESSION & PLAN: 1. Low-tension glaucoma of both eyes, severe stage -- referred from optometry (Dr Hayes, OD at [facility], [facility]), reviewed outside letter and tests, concern for multiple DH OD and worsening VF OD -- IOP ranges 10-11 -- HVF 24-2 OU today (12/25) shows slow worsening OU x years, OCT NFL OU today (12/25) with severe thinning OU -- IOP today , but note s/p LASIK with extreme thin cornea OU, so believe actual IOP is several points higher -- as reported by optometry, has another DH OD today -- no known drop allergies, has only used current rx -- rec change kevyn to dorz-kevyn OU BID, possibly add SLT afterwards -- F/U ~3 M: IOP OU ON: 0.9 / 0.5, to rim inf, small ON Tmax: CCT: 386 / 395 -- s/p LASIK OU Gonio: Open to CBB, 1+ pigment OU (12/25) VF: severe inf > mod sup arc / early double arc -- worse OU (12/25) OCT: 60 / 59 -- severe thin OD > OS (12/25) Surg: none Gtts: kevyn OU BID, travatan OU QHS 2. Nuclear sclerosis of both eyes -- moderate NS OU, PXF OS -- dilates / 3. PVD (posterior vitreous detachment), left eye -- retina stable OU on DFEx (12/25) 4. 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 01/04/2017 documented as of this encounter Historical Medications * This list may reflect changes made after this encounter. Medication Sig Dispensed Refills Start Date End Date INSULIN DETEMIR (LEVEMIR FLEXPEN SUBQ) Inject 30 Units into the skin daily. NAPROXEN SODIUM (ALEVE ORAL) Take 1 Tab by mouth daily. lisinopril (PRINIVIL, ZESTRIL) 10 mg tablet Take 1 Tablet by mouth daily. simvastatin (ZOCOR) 20 mg tablet Take 1 Tablet by mouth daily. metFORMIN (GLUCOPHAGE) 500 mg tablet Take 2 Tablets by mouth 2 times daily with breakfast and dinner. VIT C/E/ZN/COPPR/LUTEIN/HUBER JACINTA (PRESERVISION AREDS 2 ORAL) Take 1 Tab by mouth daily. 05/20/2019 ranitidine (ZANTAC) 150 mg tablet Take 150 mg by mouth daily. 05/20/2019 atenolol-chlorthalidone (TENORETIC) 50-25 mg per tablet Take 1 Tab by mouth daily. 05/20/2019 aspirin 81 mg EC tablet Take 81 mg by mouth daily. 05/20/2019 travoprost (TRAVATAN Z) 0.004 % ophthalmic solution Place 1 Drop into both eyes every evening. 03/23/2019 timolol (TIMOPTIC) 0.5 % ophthalmic solution Place 1 Drop into both eyes 2 times daily. 01/04/2017 added in this encounter Eye Exam Visual Acuity (Snellen - Linear) Right eye Left eye Dist cc 20/30 20/40 Correction: Glasses Tonometry (Applanation, 12:42) Right eye Left eye Pressure 12 13 Pachymetry (01/04/2017) Right eye Left eye Thickness 386 395 Gonioscopy Dilated view OU: open to CB, 1+ pigment Pupils Dark Light Right eye 4 3 Left eye 4 3 Extraocular Movement Right eye Left eye Full Full Neuro/Psych Oriented x3: Yes Mood/Affect: Normal Dilation Both eyes: Paremyd @ 13:20 External Exam Right eye Left eye External Normal Normal Slit Lamp Exam Right eye Left eye Lids/Lashes 1+ Blepharitis 1+ Blepharitis Conjunctiva/Sclera White and quiet White and jagdish et Cornea Clear Clear Anterior Chamber Deep and quiet Deep and quiet Iris Round and reactive Round and mai ctive Lens 1-2+ NS 2+ NS, PXF Vitreous Clear Clear, PVD Fundus Exam Right eye Left eye Disc DH sup to rim inf, smal l nerve C/D Ratio 0.9 0.5 Macula Flat Flat Vessels Normal Normal Periphery Normal Normal Wearing Rx Sphere Cylinder Pickton Right eye -1.00 +0.50 007 Left eye -1.25 +1.00 162 Care Teams Stump Blower Relationship Specialty Start Date End Date Ronald Bailey MD [address] [place] [address] PCP - General 01/03/17 05/20/17 documented as of this encounter
--- OUTSIDE RECORDS SUMMARY | 2024-01-17 13:55 | XMS_ITS | Encounter Summary ---
Author Organization [facility] Address [address] [place] [address] Care Team Providers Care Trolley Coach Driver Name Role Phone Darwin Cary Dave SHORT ORDER FRY COOK Primary Care Provider [phone] Reason for Visit * Reason Onset Date Comments Eye Problem 06/01/2019 Encounter Details Date Type Department Care Team (Late st Contact Info) Description 06/01/2019 Telephone [facility] Ophthalmology - [address] [id number] Caleb Cabello MD 111 [facility], [address] [place] [address] Eye Problem Social History Tobacco Use Types Packs/Day Years Used Date Smoking Tobacco: Former Smokeless Tobacco: Current Chew Sex and Gender Information Value Date Recorded Sex Assigned at Not on file Gender Identity Male 05/20/2019 12:48 EDT Sexual Orientation Not on file documented as of this encounter Miscellaneous Notes * Telephone Encounter - Fawn Gutierrez RN - 06/01/[address] Alonzo, monitor for loss of vision. If no trauma, recent history of surgery, history of retinal tears or retinal detachments. Called patient and relayed message. He said that he has had none ofthe above and will monitor and call us if anything changes. * Telephone Encounter - Gabriel Mccall - 06/01/2019 0834 EDT Called patient to talk about surgery but patient also disclosed to me that he has new floaters in his right eye, started seeing them about a week to a week and a half ago. No pain, floaters come and go but he notices them more in direct sunlight. Patient is diabetic Patient has not had any retinal issues in the past No other changes in vision documented in this encounter Plan of Treatment Not on file documented as of this encounter Visit Diagnoses Not on filedocumented in this encounter Care Teams Trolley Coach Driver Relationship Specialty Start Date End Date Cary Granados NP [address] [place] [address] PCP - General 05/21/17 documented as of this encounter
--- OUTSIDE RECORDS SUMMARY | 2024-01-17 13:55 | XMS_ITS | Encounter Summary ---
Author Organization [facility] Address [address] [place] [address] Care Team Providers Care Pin Machine Tender Name Role Phone Cary Granados CLASS B DRIVER Primary Care Provider [phone] Reason for Referral * (Routine) - New Request Specialty Diagnoses / Procedures Referred By Romina schuler Referred To Contact Diagnoses Low-tension glaucoma of both eyes, severe stage Procedures VISUAL FIELD EXAM, EXTENDED Caleb Cabello MD [address] [place] [phone] Referral ID Status Reason Start Date Expiration Date V isits Requested Visits Authorized [id number] New Request 10/10/2017 1 1 Reason for Visit * Reason Comments Eye Exam 3 M f/u: IOP, HVF 24 -2 OU. SLT right eye (05/2017); LASIK both eyes.No vision changes. His right eye can become blurry occasionally but it clears with blinking and AT's help. No new floaters or flashes. No pain. Medication Management dorzolamide-timolo l OU BID, travatan OU QHS; Systane bid both eyes. Encounter Details Date Type Department Care Team (Late st Contact Info) Description 10/10/2017 9:45 EDT Office Visit [facility] Ophthalmology - [address] [phone] Caleb Cabello MD [address] [place] [address] Discharge Disposition: Auto Discharge Social History [...] eyes 2 times daily. 3 Bottle 3 10/10/2017 01/14/2019 brimonidine (ALPHAGAN) 0.2 % ophthalmic solution Place 1 Drop into both eyes 2 times daily. 3 Bottle 3 10/10/2017 01/14/2019 documented in this encounter Discharge Disposition Disposition Code Departure Means Destination Auto Discharge documented in this encounter Progress Notes * Caleb Cabello MD - 10/10/2017 0945 EDT Chief Complaint Patient presents with ??? Eye Exam 3 M f/u: IOP, HVF 24-2 OU. SLT right eye (05/2017); LASIK both eyes.No vision changes. His right eyecan become blurry occasionally but it clears with blinking and AT's help. No new floaters or flashes. No pain. ??? Medication Management dorzolamide-timolol OU BID, travatan OU QHS; Systane bid both eyes. HPI :The patient is a 77 y.o. male Right Eye: Blurred Vision Left Eye: Blurred Vision Visual Aid: Glasses Current Rx Age > 2 years Location: Both eyes Pain: 0 - No pain Quality: (none) Severity: Moderate Duration: Years Timing: Constant Lasts: Continuous Context: 3 M f/u: IOP, HVF 24-2 OU. SLT right eye (05/2017); LASIK both eyes.No vision changes. His right eye can become blurry occasionally but it clears with blinking and AT's help. Modifying factors: nothing Associated Signs & Symptoms: No new floaters or flashes. No pain. Attestation: ROS Constitutional: NL ENT/Mouth NL Cardiovascular: High Blood Pressure, High Cholesterol Respiratory: NL Gastrointestinal: Heartburn Genitourinary: NL Musculoskeletal: NL Integumentary: NL Neurologic: NL Psychiatric: NL Endocrine: Diabetes Hematologic: NL Immunologic: Drug Allergy Steam Plant Records Clerk: Exposures: None Other: Attestation: Allergies include: Amoxicillin Patient Active Problem List Diagnosis ??? Low-tension glaucoma of both eyes, severe stage Outpatient Prescriptions Marked as Taking for the 10/10/17 encounter (Office Visit) with Caleb Cabello MD Medication Sig ??? aspirin 81 mg EC tablet Take 81 mg by mouth daily. ??? atenolol-chlorthalidone (TENORETIC) 50-25 mg per tablet Take 1 Tab by mouth daily. ??? [DISCONTINUED] dorzolamide-timolol (COSOPT) 22.3-6.8 mg/mL ophthalmic solution Place 1 Drop into both eyes 2 times daily. ??? INSULIN DETEMIR (LEVEMIR FLEXPEN [...] both eyes 2 times daily. ??? [DISCONTINUED] timolol (TIMOPTIC) 0.5 % ophthalmic solution Place 1 Drop into both eyes 2 timesdaily. ??? travoprost (TRAVATAN Z) 0.004 % ophthalmic solution Place 1 Drop into both eyes every evening. ??? VIT C/E/ZN/COPPR/LUTEIN/ZEAXAN (PRESERVISION AREDS 2 ORAL) Take 1 Tab by mouth daily. Past Medical History: Diagnosis Date ??? Glaucoma Past Surgical History: Procedure Laterality Date ??? EYE SURGERY ??? [place]ASIK done in [place] No family history on file. Patient reports that he has quit smoking. His smokeless tobacco use includes Chew. Recent HbA1c: No results found for: HGBA1C Base Eye Exam Visual Acuity (Snellen - Linear) Right Left Dist cc 20/25 -1 20/40 -2 Dist ph cc NI Correction: Glasses Tonometry (Applanation, 9:58) Right Left Pressure 13 13 Tonometry #2 (Applanation, 11:10) Right Left Pressure 10 13 Extraocular Movement Right Left Result Full Full [...] 0.5 Macula Flat Flat Vessels Normal Normal Refraction Wearing Rx Sphere Cylinder [place] Right -1.00 +0.50 007 Left -1.25 +1.00 162 Type: SVL IMPRESSION & PLAN: 1. Low-tension glaucoma of both eyes, severe stage -- referred from optometry (Dr Hayes, OD at [facility]) -- IOP ranges 10-11 -- HVF 24-2 OU today (10/26) possible slight worse OD,approx stable OS, both worse vs -- OCT NFL OU (12/25) with severe thinning OU -- note LASIKOU with thin corneas, actual IOP slight higher -- added SLT OD (05/26), IOP slight lower -- pt c/o severe sting with dorz-kevyn and has stopped dorz-kevyn and instead is using timolol OU BID -- will hold dorz-kevyn for now and cont timolol, additionally add brimonidine OU BID -- F/U 5 M: IOP, HVF 24-2 OU,paremyd OU ON: 0.9 / 0.5, to rim inf, small ON -- likely APD OD Tmax: CCT: 386 / 395 -- s/p LASIK OU Gonio: Open to CBB, 1+ pigment OU (12/25) VF: severe inf > mod sup arc / early double arc (10/26) OCT: 60 / 59 -- severe thin OD > OS (12/25) Surg: SLT OD (05/26) Gtts: dorzolamide-timolol OU BID (pt instead using timolol), travatan OU QHS 2. Nuclear sclerosis of both eyes -- moderate NS OU, PXF OS -- dilates 3. 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 01/04/2017 10/10/2017 timolol (TIMOPTIC) 0.5 % ophthalmic solution Place 1 Drop into both eyes 2 times daily. Reorder 10/10/2017 documented as of this encounter Historical Medications * This list may reflect changes made after this encounter. Medication Sig Dispensed Refills Start Date End Date timolol (TIMOPTIC) 0.5 % ophthalmic solution Place 1 Drop into both eyes 2 times daily. 10/10/2017 added in this encounter Eye Exam Visual Acuity (Snellen - Linear) Right eye Left eye Dist cc 20/25 -1 20/40 -2 Dist ph cc NI Correction: Glasses Tonometry #1 (Applanation, 9:58) Right eye Left eye Pressure 13 13 Tonometry #2 (Applanation, 11:10) Right eye Left eye Pressure 10 13 Extraocular Movement Right eye Left eye Full [...] 0.5 Macula Flat Flat Vessels Normal Normal Wearing Rx Sphere Cylinder [place] Right eye -1.00 +0.50 007 Left eye -1.25 +1.00 162 Type: SVL Care Teams Pin Machine Tender Relationship Specialty Start Date End Date Cary Granados NP [address] [place] [address] PCP - General 05/21/17 documented as of this encounter
--- OUTSIDE RECORDS SUMMARY | 2024-01-17 13:55 | XMS_ITS | Encounter Summary ---
Author Organization [facility] Address [address] [place] [address] Care Team Providers Care Rn Clinical Trials Name Role Phone Cary Granados TUBING MILL SETTER Primary Care Provider Encounter Details Date Type Department Care Team (Latest Contact Info) Description 07/27/2019 Travel Social History Tobacco Use Types Packs/Day [...] have Coronavirus / COVID-19? No / Unsure 07/27/2019 10:01 EDT documented as of this encounter Plan of Treatment Not on file documented as of this encounter Visit Diagnoses Not on filedocumented in this encounter Care Teams Rn Clinical Trials Relationship Specialty Start Date End Date Cary Granados, TUBING MILL SETTER [address] [place], [place] [address] PCP - General 05/21/17 documented as of this encounter
--- OUTSIDE RECORDS SUMMARY | 2024-01-17 13:55 | XMS_ITS | Encounter Summary ---
Author Organization [facility] Address [address] [place] [address] Care Team Providers Care Cloud Developer Name Role Phone Leonardo Granadosi Dave BEAD PICKER Primary Care Provider [phone] Reason for Visit * Reason Comments Other Encounter Details Date Type Department Care Team (Late st Contact Info) Description 01/14/2019 Refill [facility] Ophthalmology - [address] [phone] Caleb Cabello MD 111 [facility], [address] [place] [address] Other Social History Tobacco Use [...] both eyes 2 times daily. Please call [phone] for appointment and further refill. 30 mL 01/14/2019 03/17/2019 brimonidine (ALPHAGAN) 0.2 % ophthalmic solution Place 1 Drop into both eyes 2 times daily. Please francia [phone] for appointment and further refills. 30 mL 01/14/2019 03/17/2019 documented in this encounter Miscellaneous Notes * Telephone Encounter - Awa Meng - 02/17/2019 0825 EST Spoke with the patient he is scheduled for 03/23/19 @ 1:00pm * Telephone Encounter - Pepe Barton RN - 01/14/2019 1018 EST Doctor: Caleb Cabello MD Requested Medication(s): Brimonidine and timolol Last appointment date: 10/10/17 Last appointment note regarding medication:'cont timolol, additionally add brimonidine OU BID -- F/U 5 M: IOP, HVF 24-2 OU, paremyd OU' Next appointment date: Overdue. Pepe Barton RN 01/14/2019 10:19 documented in this encounter Plan of Treatment Not on file documented as of this encounter Visit Diagnoses Not on filedocumented in this encounter Discontinued Medications Medication Sig Discontinue Reason Start Date End Da te brimonidine (ALPHAGAN) 0.2 % ophthalmic solution Place 1 Drop into both eyes 2 times daily. Reorder 10/10/2017 01/14/2019 timolol (TIMOPTIC) 0.5 % ophthalmic solution Place 1 Drop into both eyes 2 times daily. Reorder 10/10/2017 01/14/2019 documented as of this encounter Care Teams Cloud Developer Relationship Specialty Start Date End Date Cary Granados NP [address] [place] [address] PCP - General 05/21/17 documented as of this encounter
--- OUTSIDE RECORDS SUMMARY | 2024-01-17 13:55 | XMS_ITS | Encounter Summary ---
Author Organization [facility] Address [address] [place] [address] Care Team Providers Care Electrical Engineering Draftsperson Name Role Phone Ronald Bailey MD Primary Care Provider [phone] Reason for Visit * Reason Comments Follow-up Pt here for F/U ~3 M : IOP OU for Low-tension glaucoma. VA in the Right eye is darker on left side. Pt notes temporal peripheral vision in the Right eye is darker than central and nasal vision-Longstanding no new. 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 No pain. No HAs. Flashes-Right longstanding come and go no new. No floaters. No distoriton. Itching-Both. Burning-Both with gtts uses. No tearing. Medication Management Gtts: Travatan Z H S/HS; Dorz-Timolol 2/2-Burning with use. systane-PRN. Pt faithful with gtts Encounter Details Date Type Department Care Team (Late st Contact Info) Description 04/15/2017 10:00 EST Office Visit [facility] Ophthalmology - [facility] [address], [place] [address] Caleb Cabello MD [address] [facility], [address] [place] [address] Discharge Disposition: Auto Discharge Social [...] severe stage-H40.1233[ICD-10-CM] H25.13 Age-related nuclear cataract, bilateral-H25.13[ICD-10-CM] Z98.890 Other specified postprocedural states-Z98.890[ICD-10-CM] documented in this encounter Discharge Disposition Disposition Code Departure Means Destination Auto Discharge documented in this encounter Progress Notes * Caleb Cabello MD - 04/15/2017 1000 EST Chief Complaint Patient presents with ??? Follow-up Pt here for F/U ~3 M: IOP OU for Low-tension glaucoma. VA in the Right eye is darker on left side. Pt notes temporal peripheral vision in the Right eye is darker than central and nasal vision-Longstanding no new. 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 No pain. No HAs. Flashes-Right longstanding come and go no new. No floaters. No distoriton. Itching-Both. Burning-Both with gtts uses. No tearing. ??? Medication Management Gtts: Travatan Z HS/HS; Dorz-Timolol 2/2-Burning with use. systane-PRN. Pt faithful with gtts HPI :The patient is a 77 y.o. male Pt denies recent vision change no recent flashes -- no new floaters denies eye pain -- denies itchiness of eyes denies any recent eye trauma -- systemic health generally stable denies new eye medicines Right Eye: Blurred Vision, Flashes, Burning, Itching Left Eye: Blurred Vision, Flashes, Burning, Itching Visual Aid: Glasses Current Rx Age Location: Both eyes Pain: 0 - No pain Quality: Blurry Severity: Moderate Duration: Years Timing: Constant Lasts: Continuous Context: VA in the Right eye is darker on left side. Pt notes temporal peripheral vision in the Right eye is darker than central and nasal vision- Longstanding no new. VA blurry-Left secondary to CNscar per pt-longstanding. No pain. No HAs. Flashes-Right longstanding come and go no new. No floaters. No distoriton. Itching-Both. Burning-Both with gtts uses. No tearing Modifying factors: S/P LASIK-OU Associated Signs & Symptoms: Low-tension glaucoma;NSC-OU;PVD-OS Attestation: ROS Constitutional: ENT/Mouth Cardiovascular: High Blood Pressure, High Cholesterol Respiratory: Gastrointestinal: Genitourinary: Musculoskeletal: Integumentary: Neurologic: Psychiatric: Endocrine: Diabetes (Type 2 DM Last A1c 7.1) Hematologic: Immunologic: Drug Allergy Marketing Information Manager: Exposures: Other: Attestation: Allergies include: Review of patient's allergies indicates no known allergies. There is no problem list on file for this patient. Outpatient Prescriptions Marked as Taking for the 04/15/17 encounter (Office Visit) with Caleb Cabello MD Medication Sig ??? aspirin 81 mg EC tablet Take 81 mg by mouth daily. ??? atenolol-chlorthalidone (TENORETIC) 50-25 mg per tablet Take 1 Tab by mouth daily. ??? dorzolamide-timolol (COSOPT) 22.3-6.8 mg/mL ophthalmic solution Place [...] Take 20 mg by mouth daily. ??? travoprost (TRAVATAN Z) 0.004 % [...] Linear) Right Left Dist cc 20/30 20/40 -1 Dist ph cc NI NI Correction: Glasses Tonometry (Applanation, 10:22) Right Left Pressure 10 10 Tonometry #2 (Applanation, 10:57) Right Left Pressure 10 12 Tonometry Comments Pt used gtts this AM-OU Pupils Pupils Dark Light React APD Right PERRL 3 2 Slow None Left PERRL 3 2 Slow None Visual Alfaro (Counting fingers) Right Left Result Full Restrictions Partial inferior nasal deficiency Extraocular Movement Right Left Result Full Full [...] Fundus Exam Right Left Disc to rim inf, small nerve C/D Ratio 0.9 0.5 Macula Flat Flat Vessels Normal Normal Refraction Wearing Rx Sphere Cylinder Bruington Right -1.00 +0.50 007 Left -1.25 +1.00 162 Age: 5yrs Type: SVL IMPRESSION & PLAN: 1. Low-tension glaucoma of both eyes, severe stage -- referred from optometry (Dr Hayes, OD at [facility]), recent multiple DH OD and worsening VF OD -- IOP ranges 10-11 -- HVF 24-2 OU (12/25) shows slow worsening OU x years, OCT NFL OU (12/25) with severe thinning OU -- note LASIK OU with thin corneas, actual IOP slight higher -- last visit changed timolol to dorz- timolol, andIOP slight better OU today (IOP today ) -- D/W pt, cont rx, add SLT OD, possibly OS after, pt agrees to this plan ON: 0.9 / 0.5, to rim inf, small ON Tmax: CCT: 386 / 395 -- s/p LASIK OU Gonio: Open to CBB, 1+ pigment OU (12/25) VF: severe inf > mod sup arc / early double arc -- worse OU (12/25) OCT: 60 -- severe thin OD > OS (12/25) Surg: none Gtts: dorzolamide-timolol OU BID, travatan OU QHS 2. Nuclear sclerosis of both eyes -- moderate NS OU, PXF OS -- dilates 8 / 3. 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 S/P LASIK surgery of both eyes documented in this encounter Eye Exam Visual Acuity (Snellen - Linear) Right eye Left eye Dist cc 20/30 20/40 -1 Dist ph cc NI NI Correction: Glasses Tonometry #1 (Applanation, 10:22) Right eye Left eye Pressure 10 10 Tonometry #2 (Applanation, 10:57) Right eye Left eye Pressure 10 12 Tonometry Comments Pt used gtts this AM-OU Pupils Pupils Dark Light React APD Right eye PERRL 3 2 Slow None Left eye PERRL 3 2 Slow None Visual Alfaro (Counting fingers) Right eye Left eye Full Restrictions Partial outer inferior nasal def iciency Extraocular Movement Right eye Left eye Full [...] Right eye Left eye Disc to rim inf, smal l nerve C/D Ratio 0.9 0.5 Macula Flat Flat Vessels Normal Normal Wearing Rx Sphere Cylinder Bruington Right eye -1.00 +0.50 007 Left eye -1.25 +1.00 162 Age: 5yrs Type: SVL Care Teams Electrical Engineering Draftsperson Relationship Specialty Start Date End Date Ronald Bailey MD [address] [place] [address] PCP - General 01/03/17 05/20/17 documented as of this encounter
--- OUTSIDE RECORDS SUMMARY | 2024-01-17 13:55 | XMS_ITS | Encounter Summary ---
Author Organization [facility] Address [address] [place] [address] Care Team Providers Care Termite Control Representative Name Role Phone Cary Granados RESEARCH PROGRAMMER Primary Care Provider [phone] Reason for Visit * Reason Comments Follow-up Encounter Details Date Type Department Care Team (Late st Contact Info) Description 03/23/2019 13:00 EST Office Visit [facility] Ophthalmology - [facility] [address], [place] [id number] Caleb Cabello MD [address] [facility], [address] [place] [phone] Social History Tobacco Use Types Packs/Day Years [...] 1 Drop into both eyes every evening. 10 mL 4 03/23/2019 06/09/2019 brimonidine (ALPHAGAN) 0.2 % ophthalmic solution Place 1 Drop into both eyes 2 times daily. 30 mL 3 03/23/2019 08/05/2019 timolol (TIMOPTIC) 0.5 % ophthalmic solution Place 1 Drop into both eyes 2 times daily. 30 mL 3 03/23/2019 05/02/2020 loteprednol etabonate (LOTEMAX) 0.5 % ophthalmic suspension 1 Drop to Left Eye. 4 x Daily beginning AFTER Surgery. Shake well each time. Dispense 5 ml bottle. No refill. 5 mL 03/23/2019 08/12/2019 ofloxacin (OCUFLOX) 0.3 % ophthalmic solution 1 Drop to Left Eye. 4 x daily beginning 4 days BEFORE surgery. Dispense 1 bottle. No refill. 1 Bottle 03/23/2019 08/05/2019 ketOROLAC (ACULAR) 0.5 % ophthalmic solution 1 Drop to Left Eye. 4 x daily beginning 4 days BEFORE surgery. Dispense 1 bottle. No refill. 1 Bottle 03/23/2019 08/05/2019 documented in this encounter Progress Notes * Caleb Cabello MD - 03/23/2019 1300 EST Chief Complaint Patient presents with ??? Follow-up Comments 5 M f/u: IOP, HVF 24-2 OU and DFE SLT right eye (05/2017); LASIK both eyes. His right eye can becomeblurry occasionally but it clears with blinking and AT's help. No new floaters or flashes. No eye pain Timolol 2/2 Brimonidine 2/2 Travtan hs/hs HPI :The patient is a 78 y.o. male Physician HPI: Pt denies recent vision change no recent flashes -- no new floaters denies eye redness -- denies eye pain denies recent eye trauma -- added brimonidine as directed last visit Physician ROS: Pt denies diabetes -- Pt denies new cough / shortness of breath Right Eye: Blurred Vision, Dryness, Burning, Gritty/Foreign Body sensation Left Eye: Visual Aid: Glasses Current Rx Age Location: Both eyes Pain: 0 - No pain Quality: Stabbing Severity: Moderate Duration: Years Timing: Constant Lasts: Years Context: [place]- right eye getting blurry with FBS at times, systane usually helps Modifying factors: Timolol 2/2 Brinm 2/2 and Travaston hs/hs Associated Signs & Symptoms: vision loss Attestation: ROS Constitutional: ENT/Mouth Hearing Loss Cardiovascular: High Blood Pressure, High Cholesterol Respiratory: Gastrointestinal: Genitourinary: Musculoskeletal: Integumentary: Neurologic: Psychiatric: Endocrine: Diabetes Hematologic: Immunologic: Drug Allergy Floor Hand: Exposures: None Other: Attestation: Allergies include: Amoxicillin Patient Active Problem List Diagnosis ??? Low-tension glaucoma of both eyes, severe stage Outpatient Medications Marked as Taking for the 03/23/19 encounter (Office Visit) with Caleb Cabello MD Medication Sig ??? brimonidine (ALPHAGAN) 0.2 % ophthalmic solution INSTILL 1 DROP IN EACH EYE TWICE DAILY ??? INSULIN DETEMIR (LEVEMIR FLEXPEN SUBQ) Inject [...] ??? timolol (TIMOPTIC) 0.5 % ophthalmic solution INSTILL 1 DROP IN EACH EYE TWICE DAILY ??? travoprost (TRAVATAN Z) 0.004 % ophthalmic solution Place 1 Drop into both eyes every evening. ??? VIT C/E/ZN/COPPR/LUTEIN/ZEAXAN (PRESERVISION AREDS 2 ORAL) Take 1 Tab by mouth daily. Past Medical History: Diagnosis Date ??? Cataract ??? Eye trauma may be black eye ??? Glaucoma ??? Other states following surgery of eye and adnexa Past Surgical History: Procedure Laterality Date ??? EYE SURGERY ??? LASER TRABECULOPLASTY ??? LASIK done in [place] History reviewed. No pertinent family history. Patient reports that he has quit smoking. His smokeless tobacco use includes chew. Recent HbA1c: No results found for: HGBA1C Base Eye Exam Visual Acuity (Snellen - Linear) Right Left Dist cc 20/30 -2 20/100 +1 Dist ph cc 20/30 +1 20/60 +2 -0.50 over pt own glasses gave VA 20/50-2 Tonometry (Applanation, 13:11) Right Left Pressure 10 11 Pupils Dark Shape React APD Right 2.5 Round Minimal None Left 2.5 Round Minimal None Visual Alfaro 24-2 HVF today Extraocular Movement Right Left Full, Ortho Full, Ortho Neuro/Psych Oriented x3: Yes Mood/Affect: Normal Dilation Both eyes: paremyd @ 13:11 Slit Lamp and Fundus Exam External Exam Right Left External Normal Normal Slit Lamp Exam Right Left Lids/Lashes 1+ Blepharitis 1+ Blepharitis Conjunctiva/Sclera White and quiet White and quiet Cornea Clear Clear Anterior Chamber Deep and quiet Deep and quiet Iris Round and reactive Round and reactive Lens 2+ NS 2+ NS, PXF Vitreous Clear Clear, PVD Fundus Exam Right Left Disc to rim inferior, small nerve C/D Ratio 0.9 0.5 Macula Normal Flat, central circular RPE loss Vessels Normal Normal Periphery Normal Normal Refraction Wearing Rx Sphere Cylinder Engelhard Right -1.00 +0.50 007 Left -1.25 +1.00 162 Type: SVL IMPRESSION & PLAN: 1. Low-tension glaucoma of both eyes, severe stage -- referred from optometry (Dr Hayes, OD at [facility]), pt last seen mid-2017 then lost to F/U -- HVF 24-2 OU today (03/30) slowly worse OU -- OCT NFL OU today (03/30) fluctuating at floor levels OU, mac OCT with perifoveal PED L eye, no AMD -- D/W pt, sequentially worse VFs even with low IOP, at least partially due to cataract and rec CE / goniotomy L then R, may next need trab, see below ON: 0.9 / 0.5, to rim inf, small ON -- likely APD OD Tmax: CCT: 386 / 395 -- s/p LASIK OU Gonio: Open to CBB, 1+ pigment OU (12/25) VF: severe inf > mod sup arc / mod sup > early inf arc (03/30) OCT: 54 / 59 (03/30) Surg: SLT OD (05/26) Gtts: timolol OU BID, brimonidine OU BID, travatan OU QHS Allergy: dorz-timolol (severe stinging, possible allergy) 2. Nuclear sclerosis of both eyes -- moderate, worsening NS OS > OD, PXF OS -- dilates 8 / 6 -- note hx LASIK OU -- as above, rec CE to improve VA and clarify view of glaucoma, possible glaucoma surgery afterwards -- pt agrees to this plan, schedule L eye then R eye, CE and goniotomy, note will need hooks L eye -- case requests and orders done today, drops with lotemax for IOP risk -- IOL calcs done today, aim plano, emphasized difficulty with post-LASIK calcs and likely need for glasses post-operatively -- plan in next months 3. 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 Caleb Cabello MD OPHTH ULTRASOUND Performing Organization Address [facility] Co de Phone Number [facility] * OVALLES VF 24-2 STANDARD - OU - BOTH EYES (03/23/2019 13:44 EST) Narrative [facility] - 03/23/2019 13:44 EST See assessement in main body Caleb Cabello MD OPH VISUAL FIELD Performing Organization Address [facility] Co de Phone Number [facility] documented in this encounter Visit Diagnoses Diagnosis Low-tension glaucoma of both eyes, severe stage- Primary Low tension open-angle glaucoma Nuclear sclerosis of both eyes documented in this encounter Discontinued Medications Medication Sig Discontinue Reason Start Date End Da te timolol (TIMOPTIC) 0.5 % ophthalmic solution INSTILL 1 DROP IN EACH EYE TWICE DAILY Reorder 03/17/2019 03/23/2019 brimonidine (ALPHAGAN) 0.2 % ophthalmic solution INSTILL 1 DROP IN EACH EYE TWICE DAILY Reorder 03/17/2019 03/23/2019 travoprost (TRAVATAN Z) 0.004 % ophthalmic solution Place 1 Drop into both eyes every evening. Reorder 03/23/2019 documented as of this encounter Orders Case Request Count Last Ordered Date First Orde red Date CASE REQUEST OPERATING ROOM 2 03/23/2019 documented in this encounter Eye Exam Visual Acuity (Snellen - Linear) Right eye Left eye Dist cc 20/30 -2 20/100 +1 Dist ph cc 20/30 +1 20/60 +2 -0.50 over pt own glasses gave VA 20/50-2 Tonometry (Applanation, 13:11) Right eye Left eye Pressure 10 11 Pupils Dark Shape React APD Right eye 2.5 Round Minimal None Left eye 2.5 Round Minimal None Visual Alfaro 24-2 HVF today Extraocular Movement Right eye Left eye Full, Ortho Full, Ortho Neuro/Psych Oriented x3: Yes Mood/Affect: Normal Dilation Both eyes: paremyd @ 13:11 External Exam Right eye Left eye External Normal Normal Slit Lamp Exam Right eye Left eye Lids/Lashes 1+ Blepharitis 1+ Blepharitis Conjunctiva/Sclera White and quiet White and jagdish et Cornea Clear Clear Anterior Chamber Deep and quiet Deep and quiet Iris Round and reactive Round and mai ctive Lens 2+ NS 2+ NS, PXF Vitreous Clear Clear, PVD Fundus Exam Right eye Left eye Disc to rim inferior, small nerve C/D Ratio 0.9 0.5 Macula Normal Flat, central ci rcular RPE loss Vessels Normal Normal Periphery Normal Normal Wearing Rx Sphere Cylinder Engelhard Right eye -1.00 +0.50 007 Left eye -1.25 +1.00 162 Type: SVL Care Teams Termite Control Representative Relationship Specialty Start Date End Date Cary Granados, RESEARCH PROGRAMMER [address] [place] [address] PCP - General 05/21/17 documented as of this encounter
--- OUTSIDE RECORDS SUMMARY | 2024-01-17 13:55 | XMS_ITS | Encounter Summary ---
Author Organization [facility] Address [address] [place] [address] Care Team Providers Care In Store Marketer Name Role Phone SelvinharshalCary ordaz Dave HAND STAMPER Primary Care Provider Encounter Details Date Type Department Care Team (Late st Contact Info) Description 07/21/2019 Orders Only [facility] Ophthalmology - [address] [id number] Teagan Wyatt MD [address] [facility], [address] [place] [address] Cataract of both eyes, unspecified [...] 8:44 EDT documented as of this encounter Miscellaneous Notes * Addendum Note - Teagan Wyatt MD - 07/21/2019 1442 EDTAddended by: TEAGAN WYATT on: 07/28/2019 09:26 Modules accepted: Orders, SmartSet documented in this encounter Plan of Treatment Not on file documented as of this encounter Procedures Procedure Name Priority Date/Time Associated Diagnosis Comments DO NOT ORDER STANDALONE - BROAD COVID TEST Today 07/21/2019 14:42 EDT Cataract of both eyes, unspecified cataract type COVID-19 TESTING Routine 07/21/2019 14:4 2 EDT Cataract of both eyes, unspecified cataract type documented in this encounter Results * DO NOT ORDER STANDALONE - BROAD COVID TEST (07/21/2019 14:42 EDT) COVID-19 rt-PCR Result NEGATIVE Negative 07/22/2019 13:10 EDT [facility] Comment: 2019-novel Coronavirus (2019-nCoV) not detected [...] in accordance with CLIA regulations, College [employer] (CAP) guidelines (May 28, 2019), and FDA guidance (May 09, 2019). This test is only for use under the Food and Drug Administration's Emergency Use Authorization. Swab ENTIRE NASOPHARYNX / Unknown Swab / Unknown 07/21/2019 14:42 EDT 07/21/2019 14:42 EDT Teagan Wyatt MD MICROBIOLOGY - GENER AL ORDERABLES [facility] [place], [place] * COVID-19 TESTING (07/21/2019 14:42 EDT) COVID-19 rt-PCR Result NEGATIVE Negative 07/22/2019 14:50 EDT [facility] Comment: 2019-novel Coronavirus (2019-nCoV) not detected [...] in accordance with CLIA regulations, [employer] (CAP) guidelines (May 28, 2019), and FDA guidance (May 09, 2019). This test is only for use under the Food and Drug Administration's Emergency Use Authorization. Performing Lab [facility] 07/22/2019 14:50 EDT [facility] Swab ENTIRE NASOPHARYNX / Unknown Swab / Unknown 07/21/2019 14:42 EDT 07/21/2019 14:42 EDT Teagan Wyatt MD MICROBIOLOGY - GENER AL ORDERABLES [facility] [address] [place] [address] [facility] [place], [place] documented in this encounter Visit Diagnoses Diagnosis Cataract of both eyes, unspecified cataract type- Primary documented in this encounter Care Teams In Store Marketer Relationship Specialty Start Date End Date Cary Granados, OSCAR [address] [place] [address] PCP - General 05/21/17 documented as of this encounter
--- OUTSIDE RECORDS SUMMARY | 2024-01-17 13:55 | XMS_ITS | Encounter Summary ---
Author Organization [facility] Address [address] [place] [address] Care Team Providers Care Tug Captain Name Role Phone EladiaCary ordaz Dave QUOTE CLERK Primary Care Provider [phone] Reason for Visit * Reason Onset Date Comments Medications Refill 06/09/2019 Encounter Details Date Type Department Care Team (Late st Contact Info) Description 06/09/2019 Refill [facility] Ophthalmology - [address] [address] Caleb Cabello MD [address] [facility], [address] [place] [phone] Medications Refill Social History Tobacco Use Types [...] evening. 12.5 mL 3 06/09/2019 06/16/2020 documented in this encounter Miscellaneous Notes * Telephone Encounter - Chana Campos MA - 06/09/2019 0919 EDT Doctor: Caleb Cabello MD Requested Medication(s): Travatan Z Last appointment date: 03/23/2019 Last appointment note regarding medication:travatan OU QHS Next appointment date: 07/29/2019 Surgery documented in this encounter Plan of Treatment Not on file documented as of this encounter Visit Diagnoses Not on filedocumented in this encounter Discontinued Medications Medication Sig Discontinue Reason Start Date End Da te travoprost (TRAVATAN Z) 0.004 % ophthalmic solution Place 1 Drop into both eyes every evening. Reorder 03/23/2019 06/09/2019 documented as of this encounter Care Teams Tug Captain Relationship Specialty Start Date End Date Cary Granados, OSCAR [address] [place] [address] PCP - General 05/21/17 documented as of this encounter
--- OUTSIDE RECORDS SUMMARY | 2024-01-17 13:55 | XMS_ITS | Encounter Summary ---
Author Organization [facility] Address [address] [place] [address] Care Team Providers Care Blooming Mill Supervisor Name Role Phone Cary Granados HEALTH CARE MARKETING MANAGER Primary Care Provider [phone] Encounter Details Date Type Department Care Team (Latest Contact Info) Description 07/24/2019 14:00 EDT - 07/25/2019 23:59 EDT Hospital Encounter [facility] Pre-Surgical Testing [address] [place] [address] Discharge Disposition: Home or Self Care Social History Tobacco Use Types Packs/Day Years Used Date Smoking Tobacco: Former Smokeless Tobacco: Current Chew Sex and Gender Information Value Date Recorded Sex Assigned at Not on file Gender Identity Male 05/20/2019 12:48 EDT Sexual Orientation Not on file documented as of this encounter Last Filed Vital Signs Vital Sign Reading Time Taken Comments Blood Pressure - - Pulse - - Temperature - - Respiratory Rate - - Oxygen Saturation - - Inhaled Oxygen Concentration - - Weight 91.5 kg (201 lb 12.8 oz) 07/24/2019 1358 EDT Height 181.6 cm (5' 11.5) 07/24/2019 1358 EDT Body Mass Index 27.75 07/24/2019 1358 EDT documented in this encounter Medications at Time [...] Code Departure Means Destination Home or Self Care documented in this encounter OR Notes * Preprocedure Instructions - Mauricio Thao RN - 07/24/2019 4685 EDT Baron Tavares has been instructed as follows regarding medication administration for the day of the scheduled procedure. Date of Surgery: 07/28/2019 Instructions for Taking Medications Day of Surgery Medication Sig Last Dose Hold DOS Take DOS brimonidine (ALPHAGAN) 0.2 % ophthalmic solution Place 1 Drop into both eyes 2 times daily. Yes cyanocobalamin (VITAMIN B-12) 500 mcg tablet Take 500 mcg by mouth daily. 07/24/19 x famotidine (PEPCID) 20 mg tablet Take 20 mg by mouth 2 times daily. Yes ferrous gluconate (FERGON) 324 mg (38 mg iron) tablet Take 324 mg by mouth 2 times daily with breakfast and dinner. 07/24/19 x gabapentin (NEURONTIN) 300 mg capsule Take 300 mg by mouth 3 times daily. Yes INSULIN DETEMIR (LEVEMIR FLEXPEN SUBQ) Inject 30 Units into the skin daily. Take 80% of usual dose evening prior, 24 units x ketOROLAC (ACULAR) 0.5 % ophthalmic solution 1 Drop to Left Eye. 4 x daily beginning 4 days BEFORE surgery. Dispense 1 bottle. No refill. Yes lisinopril (PRINIVIL, ZESTRIL) 10 mg tablet Take 10 mg by mouth daily. 07/26/19 x loteprednol etabonate (LOTEMAX) 0.5 % ophthalmic suspension 1 Drop to Left Eye. 4 x Daily beginningAFTER Surgery. Shake well each time. Dispense 5 ml bottle. No refill. After surgery metFORMIN (GLUCOPHAGE) 500 mg tablet Take 1,000 mg by mouth 2 times daily with breakfast and dinner. 07/26/19 x NAPROXEN SODIUM (ALEVE ORAL) Take 1 Tab by mouth daily. 07/20/2019 Per ofloxacin (OCUFLOX) 0.3 % ophthalmic solution 1 Drop to Left Eye. 4 x daily beginning 4 days BEFOREsurgery. Dispense 1 bottle. No refill. Yes simvastatin (ZOCOR) 20 mg tablet Take 20 mg by mouth daily. Yes SITagliptin (JANUVIA) 50 mg tablet Take 50 mg by mouth daily. 07/26/19 x tamsulosin (FLOMAX) 0.4 mg capsule Take 0.4 mg by mouth daily. Yes timolol (TIMOPTIC) 0.5 % ophthalmic solution Place 1 Drop into both eyes 2 times daily. Yes travoprost (TRAVATAN Z) 0.004 % ophthalmic solution Place 1 Drop into both eyes every evening. Yes vit A/vit C/vit E/zinc/copper (PRESERVISION AREDS ORAL) Take by mouth. 07/24/2019 documented in this encounter Miscellaneous Notes * PAT Note - Mauricio Thao RN - 07/24/2019 2510 EDT Have you had any flu like symptoms [...] Pt tested negative for Covid-19 on 07/21/2019. MAURICIO THAO RN * Plan of Care - Mauricio Thao RN - 07/24/2019 5615 EDT COVID 19 Screening Perioperative at time of PAT Have you had any flu like symptoms [...] Pt tested negative for Covid-19 on 07/21/2019. If past COVID + test results in chart: ??? Complete call, Place for Anesthesia Review ??? Do not give COVID+ DOS arrival instructions unless anes review deems necessary Have you been in close contact with someone who has been diagnosed with Covid 19? No (close contact, within 6 feet of any person known to have Coronavirus in the past 14 days) If patient develops any of these symptoms between now and their surgery date instruct them to call us back at [phone] to report symptoms If the patient answers yes, to any of these questions during PAT, -RN to flag this chart for anesthesia review and complete call -RN to communicate with surgical office about anesthesia review (If patient is in Surgical Admissions and answers yes, please notify Surgery and Anesthesia team). Follow proper precautions- yellow mask to patient/family. [place]: Visitor Policy: OP- one non-sick escort in waiting room, no visitors/escort in PeriOp Exceptions: Child-1 parent, special needs- 1 caregiver For safety concerns on ride home: second parent or caregiver may come to hospital but will have to wait in cell phone lot IP- One non-sick visitor/escort in waiting room, no visitors/escort in PeriOp Pediatric patient: ??? Due to COVID 19 all children will receive IV and no parents are allowed to go back to OR ??? RN to provide education on IV's and request Emla to be placed (RX from PCP) prior to coming in with them. ? ? Patient > 1 yo: Emla takes one hour to work, place quarter size amount on 4 places - top of hands and inner elbow, cover with tegaderm or saran wrap. Children under age of 16 y.o. are not permitted. Only ADA service animals are permitted into the hospital. All other animals, including previously approved therapy/support animals, are not allowed at this time. (No animals will be allowed into Preop, OR, or PA documented in this encounter Plan of Treatment Not on file documented as of this encounter Visit Diagnoses Not on filedocumented in this encounter Historical Medications * This list may reflect changes made after this encounter. Medication Sig Dispensed Refills Start Date End Date famotidine (PEPCID) 20 mg tablet Take 1 Tablet by mouth 2 times daily. SITagliptin (JANUVIA) 50 mg tablet Take 50 mg by mouth daily. cyanocobalamin (VITAMIN B-12) 500 mcg tablet Take 1 Tablet by mouth daily. vit A/vit C/vit E/zinc/copper (PRESERVISION AREDS ORAL) Take by mouth. added in this encounter Care Teams Blooming Mill Supervisor Relationship Specialty Start Date End Date Cary Granados NP [address] [place] [address] PCP - General 05/21/17 documented as of this encounter
--- OUTSIDE RECORDS SUMMARY | 2024-01-17 13:55 | XMS_ITS | Encounter Summary ---
Author Organization [facility] Address [address] [place] [address] Care Team Providers Care Varnish Mixer Name Role Phone Unavailable Primary Care Provider Unavailabl e Encounter Details Date Type Department Care Team (Late st Contact Info) Description 05/16/2006 11:59 EST Hospital Encounter [facility] [place], operated by [facility] [address] [place] [address] Ronald Bailey MD [address] [place] [address] Discharge Disposition: Auto Discharge Social History Tobacco Use Types Packs/Day Years Used Date Smoking Tobacco: Never Assessed Sex and Gender Information Value Date Recorded Sex Assigned at Not on file Gender Identity Male 05/20/2019 12:48 EDT Sexual Orientation Not on file documented as of this encounter Discharge Disposition Disposition Code Departure Means Destination Auto Discharge documented in this encounter Plan of Treatment Not on file documented as of this encounter Visit Diagnoses Not on filedocumented in this encounter
--- OUTSIDE RECORDS SUMMARY | 2024-01-17 13:55 | XMS_ITS | Encounter Summary ---
Author Organization [facility] Address [address] [place] [address] Care Team Providers Care Golf Sales Manager Name Role Phone Darwin Cary Dave FLEA MARKET SELLER Primary Care Provider Reason for Visit * Reason Comments Follow-up Here for SLT OD toda y.?OD fogs up off and on--can be bothersome if happens when trying to read; also reports needs sunglasses more often in bright sun.?Noticeable x last 1-2 years. No pain, no f/f Medication Management Dorzolamide-timolo l OU BID, Travatan OU QHS.?Using faithfully, tolerating well, except burn for a few moments after using. Encounter Details Date Type Department Care Team (Late st Contact Info) Description 05/21/2017 13:30 EDT Office Visit [facility] Ophthalmology - [address] [address] Caleb Cabello MD [address] [place] [address], [address] [place] [address] Discharge Disposition: Auto Discharge Social History Tobacco Use Types Packs/Day Years Used Date Smoking Tobacco: Former Smokeless Tobacco: Former Chew Sex and Gender Information Value Date Recorded Sex Assigned at Not on file Gender Identity Male 05/20/2019 12:48 EDT Sexual Orientation Not on file documented as of this encounter Discharge Diagnoses Diagnosis H40.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 Risks, benefits and alternatives were discussed with the patient, and informed consent was obtained. Pre-procedure visual acuity in the operative eye: 20/30-1 Pre-procedure IOP in the operative eye: 10 Brimonidine, pilocarpine, and proparacaine were given to the operative eye. A time-out occurred to verify patient ID, procedure, and operative site. A gonioscopy lens was applied to the eye. SLT was performed by Dr Cabello: 0.8 mJ, 94 applications circumferentially around the angle, for a total of 70.5 mJ. The patient tolerated the procedure well. Timolol 0.5% and prednisolone acetate 1% were administered to the operative eye. Forty minutes post-procedure IOP: 7 The patient was discharged home. The patient was instructed to continue using other glaucoma drops as before. 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
--- OUTSIDE RECORDS SUMMARY | 2024-01-17 13:55 | XMS_ITS | Encounter Summary ---
Author Organization [facility] Address [address] [place] [address] Care Team Providers Care Power Saw Mechanic Name Role Phone DarwinCary Dave FOREIGN EXCHANGE STUDENT COORDINATOR Primary Care Provider Reason for Visit * Auth/Cert Specialty Diagnoses / Procedures Referred By Romina t Referred To Contact Diagnoses Combined forms of age-related cataract of left eye Combined forms of age-related cataract of left eye [H25.812] Procedures PA XCAPSL CTRC RMVL INSJ IO LENS PROSTH W/O ECP PA RELIEVE INNER EYE PRESSURE Cataract Extraction w/Intraocular Lens Implant, Left Eye Goinotomy, Left Eye Referral ID Status Reason Start Date Expiration Date Visits Re quested Visits Authorized [id number] 1 1 Encounter Details Date Type Department Care Team (Late st Contact Info) Description 07/28/2019 8:45 EDT - 07/28/2019 12:00 EDT Hospital Encounter [facility] Operating Room [address] [place] [address] Caleb Cabello MD [address] [facility], [address] [place] [address] Discharge Disposition: Home or Self [...] Sign Reading Time Taken Comments Blood Pressure 140/80 07/28/2019 1145 EDT Pulse - - Temperature 36.7 ??C (98.1 ??F) 07/28/2019 1130 EDT Respiratory Rate 16 07/28/2019 1145 EDT Oxygen Saturation 97% 07/28/2019 1145 EDT Inhaled Oxygen Concentration - - [...] be mildly sore; take Tylenol or other aeeo-mox-yttcuol pain reliever if needed, following the directions on the package. If you have severe pain or nausea, call Dr. Cabello or [facility] ([phone]) and ask to speak to the commercial finance analyst wardrobe image consultant. You do not need any medicine in [...] Code Departure Means Destination Home or Self [place] documented in this encounter H&P Notes * [...] Cabello MD 07/28/2019 9:18 Source Note - SUPERVISING DEPUTY, SCAN 2 - 07/21/2019 12:09 EDT documented [...] chopper,and the nucleus was removed using a qnxokv-eke-thwmion technique. The irrigation and aspiration handpiece were [...] gonioprism, the angle was visualized and the [place] goniotomy blade was used to excise a [...] PAT Note - Mirtha Nagel - 07/27/2019 5642 EDT I personally called Mr. Tavares this [...] 7:18 EDT) 08/11/2019 7:18 EDT Scan 2 Older Adult Social Work Specialist PROCEDURE/MINOR MEENA GICAL ORDERABLES * (ABNORMAL) POCT GLUCOSE, INTERFACED (07/28/2019 9:12 EDT) Glucose, POC 201(H) 70 - 100 mg/dL 07/28/2019 9:17 EDT [facility] sand cleaning machine operator ID [id number] 07/28/2019 9:17 EDT [facility] SERVICES HN LAB POC COMMENT (GLUCOSE) Test Performed by Nursing Services 07/28/2019 9:17 EDT [facility] SERVICES Blood CAPILLARY BLOOD / Unknown 07/28/2019 9:12 EDT 07/28/2019 9:17 EDT Caleb Cabello MD POINT OF CARE TEST O RDERABLES [facility] [address] [place] [address] documented in this encounter Visit Diagnoses Diagnosis [...] Symptomatic HR < 50, Routine, Recovery (only) cyclopentolate (CYCLOGYL) 2 % ophthalmic solution 1 [...] CONTINUOUS, Starting on Sat07/28/19 at 1000, Until Tu07/28/19 at 1403, Routine, Preprocedure Continued by Anesthesia [...] 1403, peripheral intravenous catheter placement, Routine, Preprocedure moxifloxacin (VIGAMOX) 0.5 % ophthalmic solution 1 Drop 1 Drop, left eye, PREOP LINKED EYE MEDS-SEE ADMIN INSTRUCTIONS, 3 doses, First dose on Sat07/28/19 at 0945, Last dose on Sat07/28/19 at 0955, Routine, Preprocedure Given 07/28/2019 9:42 EDT 1 Drop Given 07/28/2019 9:41 EDT 1 Drop Given 07/28/2019 9:40 EDT 1 Drop naloxone (NARCAN) injection 0.2 mg 0.2 mg, [...] Preprocedure Given 07/28/2019 9:39 EDT 1 Drop tropicamide (MYDRIACYL) 1 % [...] PRN, Starting on Sat07/28/19 at 1117, Until e 07/28/19 at 1403, Symptomatic HR < 50, Routine, Recovery (only) balanced salt solution inrrigation solution (BSS PLUS) 500 mL, EPINEPHrine HCl (PF) (ADRENALIN) 0.5 mL irrigation (CANCELED) As needed, Starting on Sat07/28/19 at 1024, Until Sat07/28/19 at 1035, Routine, Intraprocedure 1024 (Given - Provid er: Caleb Cabello MD - Comment: part 1 [id number] part 2 [id number] [facility] [place] [facility] [id number]) balanced salts (BSS) ophthalmic solution (CANCELED) As needed, Starting on e 07/28/19 at 1020, Until 07/28/19 at 1021, Routine, Intraprocedure 1020 (Given - Provid er: Josefina Hitchcock [facility]) chondroitin-sodium hyaluronate (VISCOAT) ophthalmic solution (CANCELED) As needed, Starting on e 07/28/19 at 1021, Until Sat07/28/19 at 1035, Routine, Intraprocedure 1021 (Given - Provid er: Caleb Cabello MD - Comment: [id number]) dextrose 50 % solution 12.5 g 12.5 g, intravenous, PRN, Starting on Sat07/28/19 at 1040, Until 07/28/19 at 1403, Low Blood Sugar, Routine, Preprocedure fentaNYL citrate (PF) injection 25-50 mcg 25-50 mcg, intravenous, EVERY 5 MIN PRN, Starting on Sat07/28/19 at 1117, Until 07/28/19 at 1403, Pain, Routine, Recovery (only) glucagon injection 1 mg 1 mg, intramuscular, PRN, Starting on e 07/28/19 at 1040, Until 07/28/19 at 1403, Low Blood Sugar, Routine, Preprocedure lidocaine (PF) 10 mg/mL (1 %) injection 2 mg 2 mg, intradermal, PRN, 4 doses, Starting on e 07/28/19 at 0930, Until 07/28/19 at 1403, peripheral intravenous catheter placement, Routine, Preprocedure lidocaine (PF) 10 mg/mL (1 %) injection (CANCELED) As needed, Starting on e 07/28/19 at 1022, Until 07/28/19 at 1035, Routine, Intraprocedure 1022 (Given - Provid er: Caleb Cabello MD - Comment: [id number]) moxifloxacin (VIGAMOX) 0.5 % ophthalmic solution (CANCELED) [...] ophthalmic injection (CANCELED) As needed, Starting on Sat07/28/19 at 1026, Until Sat07/28/19 at 1035, Routine, Intraprocedure 1026 (Given - Provid er: Caleb Cabello MD - Comment: [id number]) timolol (TIMOPTIC) 0.5 % ophthalmic solution (CANCELED) As needed, Starting on Sat07/28/19 at 1028, Until Sat07/28/19 at 1035, Routine, Intraprocedure 1028 (Given - Provid er: Caleb Cabello MD) Linked Groups Order Group 1: acetaminophen (TYLENOL) solution unit dose cup 995 mgJump to med 995 mg (rounded from 1,000 mg), oral, PRN, 1 dose, Starting on Sat07/28/19 at 1117, Until Sat07/28/19 at 1403, Pain, Routine, Recovery (only) Or acetaminophen (TYLENOL) tablet 1,000 mgJump to med 1,000 mg, oral, PRN, 1 dose, Starting on Sat07/28/19 at 1117, Until Sat07/28/19 at 1403, Pain, Routine, Recovery (only) documented in this encounter Orders Medications Ordered That Saurav ht Not Have Been Administered Count Last Ordered Date First Ordered Date acetaminophen (TYLENOL) solu tion unit dose cup 995 mg 1 07/28/2019 acetaminophen (TYLENOL) tablet 1,000 mg 1 0 07/28/2019 atropine 0.1 mg/mL syringe 0.5 mg 1 020 balanced salt solution inrri gation solution (BSS PLUS) 500 mL, EPINEPHrine HCl (PF) (ADRENALIN) 0.5 mL irrigation 1 07/28/2019 balanced salts (BSS) ophthalmic solution 1 07/28/2019 chondroitin-sodium hyalurona te (VISCOAT) ophthalmic solution 1 07/28/2019 dextrose 50 % solution 12.5 g 1 07/28/2019 fentaNYL citrate (PF) injection 25-50 mcg 1 07/28/2019 glucagon injection 1 mg 1 07/28/2019 lactated ringers (LR) infusion 1 07/28/2019 lidocaine (PF) 10 mg/mL (1 %) injection 1 0 07/28/2019 lidocaine (PF) 10 mg/mL (1 % ) injection 2 mg 1 07/28/2019 moxifloxacin (VIGAMOX) 0.5 % ophthalmic solution 1 07/28/2019 naloxone (NARCAN) injection 0.2 mg 1 2019 ondansetron (PF) (ZOFRAN) injection 4 mg 1 07/28/2019 sodium hyaluronate (HEALON) ophthalmic injection 1 07/28/2019 timolol (TIMOPTIC) 0.5 % oph thalmic solution 1 07/28/2019 Nursing Count Last Ordered Date First Orde red Date INSERT PERIPHERAL IV 1 07/28/2019 Discharge Count Last Ordered Date First Orde red Date DISCHARGE PATIENT 1 07/28/2019 documented in this encounter Care Teams Power Saw Mechanic Relationship Specialty Start Date End Date Cary Granados, FOREIGN EXCHANGE STUDENT COORDINATOR [address] [place] [address] PCP - General 05/21/17 documented as of this encounter
[2024-01-17 21:39] LABS: Iron 20 ug/dL (65-175); Total Iron Binding Capacity 220 ug/dL (250-450); Transferrin Sat 9 % (20-55)
[2024-01-17 22:06] LABS: Ferritin 60 ng/mL (26-388); Folate 13.3 ng/mL (8.6-20.0)
[2024-01-17 22:08] LABS: Vitamin B12 > 2000 pg/mL (193-986)
== END 2024-01-17 13:51 | disposition home or self-care (01) ==
LOC: NCHCN 13:50
PROVIDERS: PCP Nurse Practitioner Family; Visit Provider Nurse Practitioner Family
DX: D64.9 Anemia, unspecified (principal)
CPT/HCPCS: 82607; 82728; 82746; 83540; 83550